=== PATIENT | female | born 1960 | race Caucasian/White ===

== ENCOUNTER → 2017-01-29 | Outpatient (CLI) | payer BC ==
--- NOTE | 2017-02-01 08:38 | MM ---
Reason for exam: screening (asymptomatic). Last mammogram was performed 2 years ago. History: Patient is postmenopausal. Benign stereotactic core biopsy of the right breast, December 28, 2003. Benign ultrasound-guided core biopsy of the right breast, December 28, 2003. 2 core biopsies of the right breast. Physical Findings: A clinical breast exam by your physician is recommended on an annual basis and results should be correlated with mammographic findings. MG Screening Mammo w CAD Bilateral CC and MLO view(s) were taken. Prior study comparison: January 15, 2015, bilateral MG screening mammo w CAD. The breast tissue is heterogeneously dense. This may lower the sensitivity of mammography. Finding: There are grouped/clustered indistinct calcifications in the 12 o'clock middle position of the left breast, 5cm from the nipple. Previous mammotome biopsy in the left breast x 2. New finding since January 15, 2015. ASSESSMENT: Incomplete: need additional imaging evaluation, BI-RAD 0 RECOMMENDATION: Special view mammogram of the left breast. [facility] will attempt to contact patient to return for supplemental views.
== END | disposition home or self-care (01) ==
LOC: RADMAMWWP 11:23
PROVIDERS: ATTEND Family Medicine
DX: Z12.31 Encounter for screening mammogram for malignant neoplasm of breast (principal)

== ENCOUNTER → 2017-02-04 | Outpatient (CLI) | payer BC ==
--- NOTE | 2017-02-05 06:55 | MM ---
Reason for exam: additional evaluation requested from abnormal screening. Last mammogram was performed less than 1 month ago. History: Patient is postmenopausal. Benign stereotactic core biopsy of the right breast, December 28, 2003. Benign ultrasound-guided core biopsy of the right breast, December 28, 2003. 2 core biopsies of the right breast. Physical Findings: Nurse did not find any significant physical abnormalities on exam. MG Work Up Mamm w CAD LT CC with magnification, LM with magnification, and LM view(s) were taken of the left breast. Prior study comparison: January 29, 2017, bilateral MG screening mammo w CAD. January 15, 2015, bilateral MG screening mammo w CAD. Fine pleomorphic calcifications grouped over 1.8cm in upper slightly inner left breast. These results were verbally communicated with the patient and result sheet given to the patient on 02/04/17. ASSESSMENT: Suspicious, BI-RAD 4 RECOMMENDATION: Stereotactic core biopsy of the left breast. Patient not sure whou she would like to see at this point. Dr. Mckay's office called and notified. Office aware patient did not want to see Dr. Mckay in office either at this time. Patient states she will call office with decision. PRELIMINARY REPORT CALLED AND FAXED TO DR. MCKAY ON 02/05/07.
== END | disposition home or self-care (01) ==
LOC: RADMAMWWP 13:39
PROVIDERS: ATTEND Family Medicine
DX: R92.8 Other abnormal and inconclusive findings on diagnostic imaging of breast (principal)

== ENCOUNTER → 2017-02-10 | Day surgery (SDC) | payer BC ==
[2017-02-10 10:37] VITALS: BP 135/67; PULSE 82; RESP 16; TEMP 98; BMI 25.5
--- NOTE | 2017-02-10 15:17 | MM ---
EXAMINATION TYPE: MG discontinued stereo core LT DATE OF EXAM: 02/10/2017 COMPARISON: 02/04/2017 mammogram CLINICAL HISTORY: Abnormal mammogram TECHNIQUE: Stereotactic guided core biopsy of left breast. FINDINGS: The procedure of stereotactic guided core biopsy was explained to the patient. Benefits, a lternatives, and risks were discussed. An informed consent was then obtained. In attempting to position the patient, it proved impossible or suitable for the patient to remain on the table given her prior spinal surgeries despite her high level of cooperation. The procedure could therefore not be performed and was terminated prior to skin incision. The patient will be reschedule d for wire localization following consultation with Dr. Del Valle. IMPRESSION: 1. Stereotactic core biopsy terminated prior to skin incision
== END ==
LOC: RADMAMWWP 09:55
PROVIDERS: ATTEND Family Medicine
DX: R92.8 Other abnormal and inconclusive findings on diagnostic imaging of breast (principal); Z53.9 Procedure and treatment not carried out, unspecified reason

== ENCOUNTER → 2018-01-31 | Outpatient (CLI) | payer BC ==
--- NOTE | 2018-01-31 10:53 | MM ---
Reason for exam: additional evaluation requested from prior study. Last mammogram was performed 4 months ago. History: Patient is postmenopausal. Benign stereotactic core biopsy of the left breast, March 2017. MG discontinued stereo core LT of the left breast, February 10, 2017. Benign stereotactic core biopsy of the right breast, December 28, 2003. Benign ultrasound-guided core biopsy of the right breast, December 28, 2003. 2 core biopsies of the right breast. Physical Findings: Nurse did not find any significant physical abnormalities on exam. MG 3D Diag Mammo W/Cad KIM Bilateral CC and MLO view(s) were taken. Prior study comparison: September 23, 2017, left breast MG diagnostic mammo LT w CAD. February 04, 2017, left breast MG work up mamm w CAD LT. The breast tissue is heterogeneously dense. This may lower the sensitivity of mammography. Stable benign calcifications. Previous mammotome biopsy in the right breast. There is no discrete abnormality. No significant new findings when compared with previous films. These results were verbally communicated with the patient and result sheet given to the patient on 01/31/18. ASSESSMENT: Benign, BI-RAD 2 RECOMMENDATION: Routine screening mammogram of both breasts in 1 year.
== END | disposition home or self-care (01) ==
LOC: RADMAMWWP 10:02
PROVIDERS: ATTEND Surgery
DX: R92.8 Other abnormal and inconclusive findings on diagnostic imaging of breast (principal)
CPT/HCPCS: 77062; 77066

== ENCOUNTER → 2021-02-26 | Outpatient (CLI) | payer BC ==
--- NOTE | 2021-02-27 13:44 | MM ---
Reason for exam: screening (asymptomatic). Last mammogram was performed 3 years and 1 month ago. History: Patient is postmenopausal. Benign stereotactic core biopsy of the left breast, March 2017. MG discontinued stereo core LT of the left breast, February 10, 2017. Benign stereotactic core biopsy of the right breast, December 28, 2003. Benign ultrasound-guided core biopsy of the right breast, December 28, 2003. 2 core biopsies of the right breast. Physical Findings: A clinical breast exam by your physician is recommended on an annual basis and results should be correlated with mammographic findings. MG 3D Screening Mammo W/Cad Bilateral CC and MLO view(s) were taken. Prior study comparison: January 31, 2018, bilateral MG 3d diag mammo w/cad KIM. September 23, 2017, left breast MG diagnostic mammo LT w CAD. The breast tissue is heterogeneously dense. This may lower the sensitivity of mammography. Stable benign calcifications. Previous mammotome biopsy in the left breast. No significant changes when compared with prior studies. ASSESSMENT: Benign, BI-RAD 2 RECOMMENDATION: Routine screening mammogram of both breasts in 1 year.
== END | disposition home or self-care (01) ==
LOC: RADMAMWWP 13:38
PROVIDERS: ATTEND Family Medicine
DX: Z12.31 Encounter for screening mammogram for malignant neoplasm of breast (principal); Z78.0 Asymptomatic menopausal state
CPT/HCPCS: 77063; 77067

== ENCOUNTER 2022-01-22 09:59 | Emergency (ER) | payer BC ==
[2022-01-22 10:07] VITALS: TEMP 98
--- NOTE | 2022-01-22 10:25 | ED ---
General Adult HPI - General Chief complaint: Upper Respiratory Infection Stated complaint: Pneumonia Time Seen by Provider: 01/22/22 10:09 Source: patient, RN notes reviewed, old records reviewed Mode of arrival: ambulatory Limitations: no limitations - History of Present Illness Initial comments: Patient is a 61-year-old female presents the emergency room at the direction of urgent care for further evaluation and treatment of possible bilate ral pneumonia, COPD exacerbation hypoxemia. Patient reports that approximately 1 week ago she began having fevers and generalized body aches which she attributed to a lupus flare however her body aches subsided and she later developed an increase in shortness of breath and episodes of hypoxia per her pulse ox monitor at home with readings between 84 and 92%. She reports that one day prior to symptoms she had returned from visiting family in [place] where she had drove down with her . She reports that no one that she visited in [place] was ill. She took a Covid test 5 days ago which was negative. She denies any chest pain, abdominal pain, nausea, vomiting recurrence of fevers or chills. In addition to her COPD and lupus she has a past medical history significant for headaches, chronic back pain, osteoarthritis and hyperlipidemia. - Related Data Home Medications Medication Instructions Recorded Confirmed Atorvastatin [Lipitor] 40 mg PO DAILY 04/10/14 01/22/22 Metoclopramide [Reglan] 10 mg PO QID 04/10/14 01/22/22 Pain Pump 1 dose INTRATHECA CONTINUOUS 04/10/14 01/22/22 Pantoprazole Sodium [Protonix] 40 mg PO DAILY 04/10/14 01/22/22 Budesonide-Formot 160-4.5 Mcg 2 puff INHALATION RT-BID 01/22/15 01/22/22 [Symbicort 160-4.5 Mcg Inhaler] Albuterol Sulfate [Proair Hfa] 1 - 2 puff INHALATION RT-Q4H PRN 01/22/22 01/22/22 Butalb/Acetaminophen/Caffeine 1 cap PO Q4HR PRN 01/22/22 01/22/22 [Fioricet 50-300-40 mg Capsule] Ipratropium-Albuterol Nebulize 3 ml INHALATION RT-Q4H PRN 01/22/22 01/22/22 [Duoneb 0.5 mg-3 mg/3 ml Soln] busPIRone HCL 15 mg PO BID 01/22/22 01/22/22 methocarbamoL [Robaxin-750] 750 mg PO QID 01/22/22 01/22/22 oxyCODONE HCL [oxyCODONE HCL (IR)] 15 mg PO Q4H 01/22/22 01/22/22 Previous Rx's Medication Instructions Recorded Levofloxacin [Levaquin] 500 mg PO DAILY 7 Days #7 tab 01/22/22 Allergies Allergy/AdvReac Type Severity Reaction Status Date / Time No Known Allergies Allergy Verified 01/22/22 11:29 Review of Systems ROS Statement: Those systems with pertinent positive or pertinent negative responses have been documented in the HPI. ROS Other: All systems not noted in ROS Statement are negative. Past Medical History Past Medical History: Asthma, Fibromyalgia, Hyperlipidemia, Osteoarthritis (OA) Additional Past Medical History / Comment(s): CLUSTER HEADACHES, LUPUS, HX UL CERS, MEDTRONIC PAIN PUMP LEFT BUTTOCKS- chronic back pain, "complete cervical/lumbar fusion" History of Any Multi-Drug Resistant Organisms: None Reported Past Surgical History: Appendectomy, Back Surgery, Breast Surgery Additional Past Surgical History / Comment(s): LUMBAR LAMINECTOMY X3, FUSION C-4 AND C-5, MEDTRONIC PAIN PUMP. Benign stereotactic core bx. right breast 2003, benign u/s core bx. right breast 2003. Past Anesthesia/Blood Transfusion Reactions: No Reported Reaction Past Psychological History: No Psychological Hx Reported Smoking Status: Former smoker Past Alcohol Use History: None Reported Past Drug Use History: None Reported - Past Family History Mother Family Medical History: Deep Vein Thrombosis (DVT) Father Family Medical History: Cancer Additional Family Medical History / Comment(s): LUNG General Exam Limitations: no limitations General appearance: alert, in no apparent distress Head exam: Present: atraumatic, normocephalic, normal inspection Eye exam: Present: normal appearance, PERRL, EOMI. Absent: scleral icterus, conjunctival injection, periorbital swelling ENT exam: Present: normal exam, mucous membranes moist Neck exam: Present: normal inspection. Absent: tenderness, meningismus, lymphadenopathy Respiratory exam: Present: decreased breath sounds (bibasilar). Absent: respiratory distress, wheezes, rales, rhonchi, stridor Cardiovascular Exam: Present: regular rate, normal rhythm, normal heart sounds. Absent: systolic murmur, diastolic murmur, rubs, gallop, clicks GI/Abdominal exam: Present: soft, normal bowel sounds. Absent: distended, tenderness, guarding, rebound, rigid Extremities exam: Present: normal inspection, full ROM, normal capillary refill. Absent: tenderness, pedal edema, joint swelling, calf tenderness Back exam: Present: normal inspection Neurological exam: Present: alert, oriented X3, CN II-XII intact Psychiatric exam: Present: normal affect, normal mood Skin exam: Present: warm, dry, intact, normal color. Absent: rash Course Vital Signs 01/22/22 01/22/22 10:03 10:40 Temperature 98.0 F Pulse Rate 94 82 Respiratory 20 20 Rate Blood Pressure 121/67 126/66 O2 Sat by Pulse 93 L 94 L Oximetry Medical Decision Making - Medical Decision Making 61-year-old female presents in the emergency room obstruction of urge nt care for possible bilateral pneumonia and COPD exacerbation without any wheeze or hypoxia when arriving at the emergency room. We will further evaluate with repeat chest x-ray, CBC, BMP, d-dimer, along with Covid and influenza swabs. Currently oxygen levels are doing well on room air and vital signs remained stable. No need for any medications at this time. Chest x-ray shows COPD with new right lower lobe area of infiltrate and suspicious right midlung 9 mm nodule. Laboratory studies reveal slightly elevated WBCs at 12.5 and elevated platelets at 523. Chemistry panel diffuse minor abnormalities no overt electrolyte derangement requiring IV fluids or medications. No evidence of dehydration. D-dimer elevated at 0.89. Due to suspicious lung nodule and shortness of breath will check CTA to rule out PE. Low probability for PE plan for discharge home on oral antibiotics as Covid and influenza swabs are negative. CTA negative for PE small scattered bilateral nodules are seen discussed with patient and encourage follow-up with her primary care provider. Will proceed with treatment for pneumonia with oral Levaquin which she has tolerated well in the past. No need for steroids. Hypoxia stable on room air without any desaturation no need for admission. Case discussed with Dr. Warner. - Lab Data Result diagrams: 01/22/22 10:47 01/22/22 10:47 Lab Results 01/22/22 01/22/22 01/22/22 Range/Units 10:47 10:47 10:47 WBC 12.5 H (3.8-10.6) k/uL RBC 4.08 (3.80-5.40) m/uL Hgb 12.1 (11.4-16.0) gm/dL Hct 37.6 (34.0-46.0) % MCV 92.0 (80.0-100.0) fL MCH 29.5 (25.0-35.0) pg MCHC 32.1 (31.0-37.0) g/dL RDW 12.5 (11.5-15.5) % Plt Count 523 H (150-450) k/uL MPV 7.0 Neutrophils % 87 % Lymphocytes % 8 % Monocytes % 4 % Eosinophils % 1 % Basophils % 0 % Neutrophils # 10.8 H (1.3-7.7) k/uL Lymphocytes # 1.0 (1.0-4.8) k/uL Monocytes # 0.5 (0-1.0) k/uL Eosinophils # 0.1 (0-0.7) k/uL Basophils # 0.1 (0-0.2) k/uL D-Dimer 0.89 H (<0.60) mg/L FEU Sodium 138 (137-145) mmol/L Potassium 3.8 (3.5-5.1) mmol/L Chloride 97 L (98-107) mmol/L Carbon Dioxide 28 (22-30) mmol/L Anion Gap 13 mmol/L BUN 10 (7-17) mg/dL Creatinine 0.48 L (0.52-1.04) mg/dL Est GFR (CKD-EPI)AfAm >90 (>60 ml/min/1.73 sqM) Est GFR (CKD-EPI)NonAf >90 (>60 ml/min/1.73 sqM) Glucose 139 H (74-99) mg/dL Calcium 9.5 (8.4-10.2) mg/dL Coronavirus (PCR) (Not Detectd) Influenza Type A RNA (Not Detectd) Influenza Type B (PCR) (Not Detectd) 01/22/22 01/22/22 Range/Units 10:47 10:47 WBC (3.8-10.6) k/uL RBC (3.80-5.40) m/uL Hgb (11.4-16.0) gm/dL Hct (34.0-46.0) % MCV (80.0-100.0) fL MCH (25.0-35.0) pg MCHC (31.0-37.0) g/dL RDW (11.5-15.5) % Plt Count (150-450) k/uL MPV Neutrophils % % Lymphocytes % % Monocytes % % Eosinophils % % Basophils % % Neutrophils # (1.3-7.7) k/uL Lymphocytes # (1.0-4.8) k/uL Monocytes # (0-1.0) k/uL Eosinophils # (0-0.7) k/uL Basophils # (0-0.2) k/uL D-Dimer (<0.60) mg/L FEU Sodium (137-145) mmol/L Potassium (3.5-5.1) mmol/L Chloride (98-107) mmol/L Carbon Dioxide (22-30) mmol/L Anion Gap mmol/L BUN (7-17) mg/dL Creatinine (0.52-1.04) mg/dL Est GFR (CKD-EPI)AfAm (>60 ml/min/1.73 sqM) Est GFR (CKD-EPI)NonAf (>60 ml/min/1.73 sqM) Glucose (74-99) mg/dL Calcium (8.4-10.2) mg/dL Coronavirus (PCR) Not Detected (Not Detectd) Influenza Type A RNA Not Detected (Not Detectd) Influenza Type B (PCR) Not Detected (Not Detectd) Disposition Clinical Impression: Pneumonia Disposition: HOME SELF-CARE Condition: Stable Instructions (If sedation given, give patient instructions): Pulmonary Nodules (ED), Pneumonia (ED) Additional Instructions: Please complete course of antibiotic therapy. Please continue to utilize her inhalers and nebulizer as prescribed. Please avoid respiratory irritants when possible. Please follow-up with your primary care provider in regards to your pneumonia along with pulmonary nodules identified on imaging completed today. Please return to the Emergency Department if symptoms worsen or any other concerns. Prescriptions: Levofloxacin [Levaquin] 500 mg PO DAILY 7 Days #7 tab Is patient prescribed a controlled substance at d/c from ED?: No Referrals: Maycol Rowan DO [Primary Care Provider] - 1-2 days
--- NOTE | 2022-01-22 10:38 | XR ---
EXAMINATION TYPE: XR chest 2V DATE OF EXAM: 01/22/2022 COMPARISON: 05/31/2015 TECHNIQUE: PA and lateral views submitted. HISTORY: Shortness of breath FINDINGS: Diffuse emphysematous changes are seen with subsegmental changes at the right lung base new from prio r exam correlated with preliminary infiltrate. There is suggestion of a nodular 9 mm density in the l ateral margin of the right midlung. No overt failure or pneumothorax. Diffuse osteopenia. Heart size normal. Postsurgical changes overlying cervical spine. IMPRESSION: 1. COPD with new right lower lobe area of infiltrate 2. There is finding suspicious for a right midlung nodule. Dedicated short-term follow-up CT of the c hest is recommended to exclude neoplasm.
[2022-01-22 11:01] LABS: Basophils # (A) 0.1 k/uL (0-0.2); Basophils % (A) 0 %; Eosinophils # (A) 0.1 k/uL (0-0.7); Eosinophils % (A) 1 %; HCT 37.6 % (34.0-46.0); HGB 12.1 gm/dL (11.4-16.0); Lymphocytes % (A) 8 %; MCH 29.5 pg (25.0-35.0); MCHC 32.1 g/dL (31.0-37.0); Monocytes # (A) 0.5 k/uL (0-1.0); Monocytes % (A) 4 %; Neutrophils # (A) 10.8 k/uL (1.3-7.7); Neutrophils % (A) 87 %; Platelet Count 523 k/uL (150-450); RBC 4.08 m/uL (3.80-5.40); RDW 12.5 % (11.5-15.5); WBC 12.5 k/uL (3.8-10.6)
[2022-01-22 11:12] LABS: African American GFR (CKD) >90 (>60 ml/min/1.73 sqM); Anion Gap 13 mmol/L; Blood Urea Nitrogen 10 mg/dL (7-17); Calcium 9.5 mg/dL (8.4-10.2); Carbon Dioxide 28 mmol/L (22-30); Chloride 97 mmol/L (98-107); Glucose 139 mg/dL (74-99); Non-African American GFR(CKD) >90 (>60 ml/min/1.73 sqM); Potassium 3.8 mmol/L (3.5-5.1); Sodium 138 mmol/L (137-145)
--- NOTE | 2022-01-22 13:58 | CT ---
EXAMINATION TYPE: CT chest angio for PE DATE OF EXAM: 01/22/2022 COMPARISON: Chest x-ray earlier today HISTORY: SOB, elevated d dimer. Abnormal chest x-ray. CT DLP: 280.2 mGycm. Automated Exposure Control for Dose Reduction was Utilized. CONTRAST: CTA scan of the thorax is performed with IV Contrast, patient injected with 100 mL of Isovue 370, pul monary embolism protocol. MIP Images are created on CT scanner and reviewed. FINDINGS: LUNGS: At least Moderate underlying emphysematous change is confirmed. There are [id number] sca ttered areas of linear scarring bilaterally. Some peripheral more thickened areas could reflect atele ctasis or consolidation. Scattered small bilateral nodules are seen. For reference is a 7 x 6 mm righ t middle lobe nodule axial image 102. Adjacent 8 x 5 mm pulmonary nodule noted axial image 104. Irreg ular thickening in the lower lungs favors more prominent parenchymal scarring. No pleural effusion or pneumothorax seen bilaterally. MEDIASTINUM: There is satisfactory enhancement of the pulmonary artery and its branches, there is no CT evidence for pulmonary embolism. There are prominent and enlarged right hilar lymph nodes. No cardiomegaly or pericardial effusion is seen. OTHER: Enhancing vessels in the posterior spinal canal lumbar spine likely epidural artery. Slight sc oliotic curvature. IMPRESSION: Moderate to advanced emphysematous change with mild/moderate parenchymal fibrosis. Areas of mild acute infiltrate not entirely excluded though thought unlikely. Scattered small bilateral pul monary nodules is nonspecific. Consider PET/CT evaluation based on clinical correlation.
[2022-01-22 15:03] VITALS: BP 131/68; PULSE 78; RESP 18
== END 2022-01-22 14:54 | disposition home or self-care (01) ==
LOC: EC 09:59
DX: J18.9 Pneumonia, unspecified organism (principal); J45.909 Unspecified asthma, uncomplicated; E78.5 Hyperlipidemia, unspecified; M19.90 Unspecified osteoarthritis, unspecified site; Z87.891 Personal history of nicotine dependence; Z79.899 Other long term (current) drug therapy; Z79.51 Long term (current) use of inhaled steroids; Z20.822 Contact with and (suspected) exposure to COVID-19
CPT/HCPCS: 36415; 85379; 80048; 85025; 87502; 87635; 71046; 71275; 99285; Q9967

== ENCOUNTER → 2022-10-02 | Outpatient (CLI) | payer BC ==
--- NOTE | 2022-10-02 15:58 | XR ---
EXAMINATION TYPE: XR chest 2V DATE OF EXAM: 10/02/2022 COMPARISON: Chest x-ray January 22, 2022 HISTORY: Shortness of breath TECHNIQUE: Frontal and lateral views of the chest are obtained. FINDINGS: Background Chronic emphysematous and pulmonary fibrotic change bilaterally is redemonstrat ed. There is no suspicious new focal air space opacity, pleural effusion, or pneumothorax seen. The cardiac silhouette size is stable and within normal limits. Surgical change of the cervical spine is partially imaged. IMPRESSION: Chronic changes without acute pulmonary process. No significant change from recent x-ray .
== END | disposition home or self-care (01) ==
LOC: RADXRYALE 15:36
PROVIDERS: ATTEND Family Medicine
DX: J43.9 Emphysema, unspecified (principal); J84.10 Pulmonary fibrosis, unspecified
CPT/HCPCS: 71046

== ENCOUNTER → 2023-04-26 | Outpatient (CLI) | payer BC ==
--- NOTE | 2023-04-26 11:16 | XR ---
EXAMINATION TYPE: XR chest 2V DATE OF EXAM: 04/26/2023 COMPARISON: 10/02/2022 HISTORY: Shortness of breath TECHNIQUE: Frontal and lateral views of the chest are obtained. FINDINGS: Scattered senescent parenchymal changes noted. Hyperinflation compatible with COPD. No evidence for infiltrate. No evidence for atelectasis. Heart size is stable. Mediastinal structures are stable and grossly unremarkable. No evidence for hilar prominence. Degenerative changes dorsal spine. IMPRESSION: 1. No evidence for acute pulmonary disease.
== END | disposition home or self-care (01) ==
LOC: RADXRYALE 10:40
PROVIDERS: ATTEND Family Medicine
DX: R07.1 Chest pain on breathing (principal); R06.02 Shortness of breath; R09.1 Pleurisy; W19.XXXA Unspecified fall, initial encounter
CPT/HCPCS: 71046

== ENCOUNTER → 2023-05-10 | Outpatient (CLI) | payer BC | END | disposition home or self-care (01) | LOC: LABWHC1 08:18 | PROVIDERS: ATTEND Psychiatry & Neurology Neurology | DX: Z01.818 Encounter for other preprocedural examination (principal); I23.1 Atrial septal defect as current complication following acute myocardial infarction; R94.31 Abnormal electrocardiogram [ECG] [EKG] | CPT/HCPCS: 36415; 93005 ==

== ENCOUNTER 2023-06-08 11:00 | Inpatient (IN) | payer BC ==
[2023-06-08] MEDS ORDERED: methylPREDNISolone SOD SUCCI 125 MG/2 ML VIAL IV STA (11:36)
[2023-06-08] MEDS ORDERED: IPRATROPIUM-ALBUTEROL 3 ML NEB INHALATION STA (11:36)
--- NOTE | 2023-06-08 11:38 | ED ---
General Adult HPI - General Chief complaint: Shortness of Breath Stated complaint: low oxygen levels Time Seen by Provider: 06/08/23 11:27 Source: patient, RN notes reviewed Mode of arrival: ambulatory Limitations: no limitations - History of Present Illness Initial comments: Patient is a pleasant 62-year-old female presenting to the emergency department with difficulty breathing. Symptoms have been present for the past 2 weeks.Please use medication as discussed. Please follow-up with family doctor in the next 2 days of symptoms have not improved. Please return to emergency room if the symptoms increase or worsen or for any other concerns. Was diagnosed with COVID-19 infection in May 26. Patient did take paxlovid with mild improvement of symptoms. Patient does have continued productive cough. No fever. A walden has dyspnea and wheezing. Patient does have history of COPD. No Pain or leg swelling. - Related Data Home Medications Medication Instructions Recorded Confirmed Atorvastatin [Lipitor] 40 mg PO DAILY 04/10/14 01/22/22 Metoclopramide [Reglan] 10 mg PO QID 04/10/14 01/22/22 Pain Pump 1 dose INTRATHECA CONTINUOUS 04/10/14 01/22/22 Pantoprazole Sodium [Protonix] 40 mg PO DAILY 04/10/14 01/22/22 Budesonide-Formot 160-4.5 Mcg 2 puff INHALATION RT-BID 01/22/15 01/22/22 [Symbicort 160-4.5 Mcg Inhaler] Albuterol Sulfate [Proair Hfa] 1 - 2 puff INHALATION RT-Q4H PRN 01/22/22 01/22/22 Butalb/Acetaminophen/Caffeine 1 cap PO Q4HR PRN 01/22/22 01/22/22 [Fioricet 50-300-40 mg Capsule] Ipratropium-Albuterol Nebulize 3 ml INHALATION RT-Q4H PRN 01/22/22 01/22/22 [Duoneb 0.5 mg-3 mg/3 ml Soln] busPIRone HCL 15 mg PO BID 01/22/22 01/22/22 methocarbamoL [Robaxin-750] 750 mg PO QID 01/22/22 01/22/22 oxyCODONE HCL [oxyCODONE HCL (IR)] 15 mg PO Q4H 01/22/22 01/22/22 Previous Rx's Medication Instructions Recorded Levofloxacin [Levaquin] 500 mg PO DAILY 7 Days #7 tab 01/22/22 Allergies Allergy/AdvReac Type Severity Reaction Status Date / Time No Known Allergies Allergy Verified 06/08/23 11:10 Review of Systems ROS Statement: Those systems with pertinent positive or pertinent negative responses have been documented in the HPI. ROS Other: All systems not noted in ROS Statement are negative. Constitutional: Denies: fever Eyes: Denies: eye pain ENT: Denies: ear pain Respiratory: Reports: as per HPI, cough, dyspnea Cardiovascular: Denies: chest pain Endocrine: Reports: fatigue Gastrointestinal: Denies: abdominal pain Genitourinary: Denies: dysuria Past Medical History Past Medical History: Asthma, Fibromyalgia, Hyperlipidemia, Osteoarthritis (OA) Additional Past Medical History / Comment(s): CLUSTER HEADACHES, LUPUS, HX ULCERS, MEDTRONIC PAIN PUMP LEFT BUTTOCKS- chronic back pain, "complete cervical/lumbar fusion" History of Any Multi-Drug Resistant Organisms: None Reported Past Surgical History: Appendectomy, Back Surgery, Breast Surgery Additional Past Surgical History / Comment(s): LUMBAR LAMINECTOMY X3, FUSION C-4 AND C-5, MEDTRONIC PAIN PUMP. Benign stereotactic core bx. right breast 2003, benign u/s core bx. right breast 2003. Past Anesthesia/Blood Transfusion Reactions: No Reported Reaction Past Psychological History: No Psychological Hx Reported Smoking Status: Former smoker Past Alcohol Use History: None Reported Past Drug Use History: None Reported - Past Family History Mother Family Medical History: Deep Vein Thrombosis (DVT) Father Family Medical History: Cancer Additional Family Medical History / Comment(s): LUNG General Exam Limitations: no limitations General appearance: alert, in no apparent distress Head exam: Present: normocephalic Eye exam: Present: normal appearance Neck exam: Present: normal inspection Respiratory exam: Present: decreased breath sounds Cardiovascular Exam: Present: tachycardia GI/Abdominal exam: Present: soft. Absent: tenderness Extremities exam: Present: normal inspection. Absent: pedal edema, calf tenderness Neurological exam: Present: alert Psychiatric exam: Present: normal affect, normal mood Skin exam: Present: normal color Course Vital Signs 06/08/23 06/08/23 06/08/23 11:07 11:10 11:29 Temperature 99 F Pulse Rate 128 H 116 H Respiratory 18 26 H 38 H Rate Blood Pressure 140/78 149/99 O2 Sat by Pulse 88 L 87 L Oximetry 06/08/23 06/08/23 12:28 12:39 Temperature Pulse Rate 112 H 112 H Respiratory Rate Blood Pressure O2 Sat by Pulse Oximetry EKG Findings - EKG Results: EKG: interpreted by ERMD, sinus rhythm, normal axis, normal QRS, normal ST/T EKG shows: tachycardia Medical Decision Making - Medical Decision Making Was pt. sent in by a medical professional or institution (, PA, CUSTOMER CARE CONSULTANT, urgent care, hospital, or fdc...) When possible be specific @ -No Did you speak to anyone other than the patient for history (EMS, parent, family, police, friend...)? What history was obtained from this source @ -Family is present and helps confirm onset COVID-19 infection Did you review nursing and triage notes (agree or disagree)? Why? @ -I reviewed and agree with nursing and triage notes Were old charts reviewed (outside hosp., previous admission, EMS record, old EKG, old radiological studies, urgent care reports/EKG's, fdc records)? Report findings @ -Previous chest x-ray reviewed Differential Diagnosis (chest pain, altered mental status, abdominal pain women, abdominal pain men, vaginal bleeding, weakness, fever, dyspnea, syncope, headache, dizziness, GI bleed, back pain, seizure, CVA, palpatations, mental health, musculoskeletal)? @ -Differential Dyspnea: Coronary syndrome, arrhythmia, tamponade, asthma, COPD, pulmonary embolism, pneumonia, pneumothorax, pulmonary effusion, anaphylaxis, diabetic ketoacidosis, flailed chest, pulmonary contusion, diaphragmatic rupture, anemia, neuromuscular, this is not meant to be an all-inclusive list. EKG interpreted by me (3pts min.). @ -As above X-rays interpreted by me (1pt min.). @ -Chest x-ray shows no acute process CT interpreted by me (1pt min.). @ -None done U/S interpreted by me (1pt. min.). @ -None done What testing was considered but not performed or refused? (CT, X-rays, U/S, labs)? Why? @ -None What meds were considered but not given or refused? Why? @ -None Did you discuss the management of the patient with other professionals (professionals i.e. , PA, CUSTOMER CARE CONSULTANT, lab, RT, psych nurse, social media content manager, ui programmer, teacher, marketing officer, case management assistant)? Give summary @ -Case was discussed with Dr. Burgos, who will admit covering Dr. Eileen Guzman Was smoking cessation discussed for >3mins.? @ -No Was critical care preformed (if so, how long)? @ -No Were there social determinants of health that impacted care today? How? (Homelessness, low income, unemployed, alcoholism, drug addiction, transportation, low edu. Level, literacy, decrease access to med. care, long term, rehab)? @ -No Was there de-escalation of care discussed even if they declined (Discuss DNR or withdrawal of care, Hospice)? DNR status @ -No What co-morbidities impacted this encounter? (DM, HTN, Smoking, COPD, CAD, Cancer, CVA, ARF, Chemo, Hep., AIDS, mental health diagnosis, sleep apnea, morbid obesity)? @ -None Was patient admitted / discharged? Hospital course, mention meds given and route, prescriptions, significant lab abnormalities, going to OR and other pert inent info. @ -Patient reevaluated with slight improvement. Patient and family updated. Patient will be admitted for COPD. COVID-19 likely from recent infection on testing. Admission orders written. Undiagnosed new problem with uncertain prognosis? @ -No Drug Therapy requiring intensive monitoring for toxicity (Heparin, Nitro, Insulin, Cardizem)? @ -No Were any procedures done? @ -No Diagnosis/symptom? @ -COPD Acute, or Chronic, or Acute on Chronic? @ -Acute Uncomplicated (without systemic symptoms) or Complicated (systemic symptoms)? @ -default Side effects of treatment? @ -No Exacerbation, Progression, or Severe Exacerbation? @ -Exacerbation Poses a threat to life or bodily function? How? (Chest pain, USA, NH, pneumonia, PE, COPD, DKA, ARF, appy, cholecystitis, CVA, Diverticulitis, Homicidal, Suicidal, threat to staff... and all critical care pts) @ -No - Lab Data Result diagrams: 06/08/23 11:41 06/08/23 11:41 Lab Results 06/08/23 06/08/23 06/08/23 Range/Units 11:41 11:41 11:41 WBC 20.6 H (3.8-10.6) k/uL RBC 4.72 (3.80-5.40) m/uL Hgb 14.4 (11.4-16.0) gm/dL Hct 43.1 (34.0-46.0) % MCV 91.3 (80.0-100.0) fL MCH 30.5 (25.0-35.0) pg MCHC 33.4 (31.0-37.0) g/dL RDW 12.3 (11.5-15.5) % Plt Count 594 H (150-450) k/uL MPV 7.6 Neutrophils % 90 % Lymphocytes % 6 % Monocytes % 3 % Eosinophils % 1 % Basophils % 0 % Neutrophils # 18.6 H (1.3-7.7) k/uL Lymphocytes # 1.1 (1.0-4.8) k/uL Monocytes # 0.6 (0-1.0) k/uL Eosinophils # 0.2 (0-0.7) k/uL Basophils # 0.0 (0-0.2) k/uL Sodium 137 (137-145) mmol/L Potassium 4.4 (3.5-5.1) mmol/L Chloride 96 L (98-107) mmol/L Carbon Dioxide 26 (22-30) mmol/L Anion Gap 15 mmol/L BUN 17 (7-17) mg/dL Creatinine 0.60 (0.52-1.04) mg/dL Est GFR (CKD-EPI)AfAm >90 (>60 ml/min/1.73 sqM) Est GFR (CKD-EPI)NonAf >90 (>60 ml/min/1.73 sqM) Glucose 164 H (74-99) mg/dL Plasma Lactic Acid Paco 1.8 (0.7-2.0) mmol/L Calcium 9.6 (8.4-10.2) mg/dL Magnesium 1.7 (1.6-2.3) mg/dL Total Bilirubin 0.6 (0.2-1.3) mg/dL AST 22 (14-36) U/L ALT 21 (4-34) U/L Alkaline Phosphatase 96 (38-126) U/L Total Protein 7.0 (6.3-8.2) g/dL Albumin 4.1 (3.5-5.0) g/dL Influenza Type A (PCR) (Not Detectd) Influenza Type B (PCR) (Not Detectd) RSV (PCR) (Not Detectd) SARS-CoV-2 (PCR) (Not Detectd) 06/08/23 Range/Units 11:41 WBC (3.8-10.6) k/uL RBC (3.80-5.40) m/uL Hgb (11.4-16.0) gm/dL Hct (34.0-46.0) % MCV (80.0-100.0) fL MCH (25.0-35.0) pg MCHC (31.0-37.0) g/dL RDW (11.5-15.5) % Plt Count (150-450) k/uL MPV Neutrophils % % Lymphocytes % % Monocytes % % Eosinophils % % Basophils % % Neutrophils # (1.3-7.7) k/uL Lymphocytes # (1.0-4.8) k/uL Monocytes # (0-1.0) k/uL Eosinophils # (0-0.7) k/uL Basophils # (0-0.2) k/uL Sodium (137-145) mmol/L Potassium (3.5-5.1) mmol/L Chloride (98-107) mmol/L Carbon Dioxide (22-30) mmol/L Anion Gap mmol/L BUN (7-17) mg/dL Creatinine (0.52-1.04) mg/dL Est GFR (CKD-EPI)AfAm (>60 ml/min/1.73 sqM) Est GFR (CKD-EPI)NonAf (>60 ml/min/1.73 sqM) Glucose (74-99) mg/dL Plasma Lactic Acid Paco (0.7-2.0) mmol/L Calcium (8.4-10.2) mg/dL Magnesium (1.6-2.3) mg/dL Total Bilirubin (0.2-1.3) mg/dL AST (14-36) U/L ALT (4-34) U/L Alkaline Phosphatase (38-126) U/L Total Protein (6.3-8.2) g/dL Albumin (3.5-5.0) g/dL Influenza Type A (PCR) Not Detected (Not Detectd) Influenza Type B (PCR) Not Detected (Not Detectd) RSV (PCR) Not Detected (Not Detectd) SARS-CoV-2 (PCR) Detected A (Not Detectd) Disposition Clinical Impression: Acute exacerbation of chronic obstructive pulmonary disease Disposition: ADMITTED IP TO THIS HOSP Is patient prescribed a controlled substance at d/c from ED?: No Referrals: Maycol Rowan DO [Primary Care Provider] - 1-2 days Time of Disposition: 13:21
[2023-06-08 12:07] LABS: ALT 21 U/L (4-34); AST 22 U/L (14-36); African American GFR (CKD) >90 (>60 ml/min/1.73 sqM); Albumin 4.1 g/dL (3.5-5.0); Alkaline Phosphatase 96 U/L (38-126); Anion Gap 15 mmol/L; Blood Urea Nitrogen 17 mg/dL (7-17); Calcium 9.6 mg/dL (8.4-10.2); Carbon Dioxide 26 mmol/L (22-30); Chloride 96 mmol/L (98-107); Glucose 164 mg/dL (74-99); Magnesium 1.7 mg/dL (1.6-2.3); Non-African American GFR(CKD) >90 (>60 ml/min/1.73 sqM); Potassium 4.4 mmol/L (3.5-5.1); Sodium 137 mmol/L (137-145); Total Bilirubin 0.6 mg/dL (0.2-1.3)
--- NOTE | 2023-06-08 12:07 | XR ---
EXAMINATION TYPE: XR chest 2V DATE OF EXAM: 06/08/2023 12:01 PM CLINICAL INDICATION:Female, 62 years old with history of difficulty breathing; [facility] COMPARISON: Chest radiographs from 03/26/2023. TECHNIQUE: XR chest 2V Frontal and lateral views of the chest. FINDINGS: Lungs/Pleura: Prominent interstitial lung markings are seen scattered throughout the lungs with farzad ening of the diaphragm and increased lucency of the lung apices. No evidence of focal consolidation, pneumothorax or pleural effusion. Pulmonary vascularity: Unremarkable. Heart/mediastinum: Cardiomediastinal silhouette is unremarkable. Musculoskeletal: No acute osseous pathology. There is fixation hardware in the lower cervical spine. IMPRESSION: 1. No acute cardiopulmonary disease process. 2. COPD changes.
[2023-06-08] MEDS ORDERED: ACETAMINOPHEN TAB 325 MG TAB PO STA (12:17)
[2023-06-08 12:28] LABS: Basophils % (A) 0 %; Eosinophils # (A) 0.2 k/uL (0-0.7); Eosinophils % (A) 1 %; HCT 43.1 % (34.0-46.0); HGB 14.4 gm/dL (11.4-16.0); Lymphocytes # (A) 1.1 k/uL (1.0-4.8); Lymphocytes % (A) 6 %; MCH 30.5 pg (25.0-35.0); MCHC 33.4 g/dL (31.0-37.0); MCV 91.3 fL (80.0-100.0); Mean Platelet Volume 7.6; Monocytes # (A) 0.6 k/uL (0-1.0); Monocytes % (A) 3 %; Neutrophils # (A) 18.6 k/uL (1.3-7.7); Neutrophils % (A) 90 %; Platelet Count 594 k/uL (150-450); RBC 4.72 m/uL (3.80-5.40); RDW 12.3 % (11.5-15.5); WBC 20.6 k/uL (3.8-10.6)
[2023-06-08] MEDS ORDERED: SODIUM CHLORIDE 0.9% 1,000 ML IV STA (13:22)
[2023-06-08] MEDS ORDERED: LEVOFLOXACIN 750MG-D5W PMX 750 MG in DEXTROSE/WATER 1 150ML.BAG IVPB STA (13:22)
[2023-06-08] MEDS ORDERED: ACETAMINOPHEN TAB 325 MG TAB PO PRN (13:23)
[2023-06-08] MEDS ORDERED: NALOXONE 0.4 MG/ML 1 ML VIAL IVP PRN (13:23)
[2023-06-08] MEDS ORDERED: IPRATROPIUM-ALBUTEROL 3 ML NEB INHALATION PRN (13:23)
--- NOTE | 2023-06-08 14:35 | P.HPIM ---
History of Present Illness H&P Date: 06/08/23 Patient is a 62-year-old female with history of COPD, nicotine dependence, lupus, chronic back pain, dyslipidemia presenting with shortness of breath. She has been having similar issues for almost 2 weeks. Was tested COVID-19 positive on 05/26. She was seen in the primary care office, was given steroid taper as well as doxycycline. Her symptoms have persistently worsened. She claims that she has significant shortness of breath with some sternal pain with cough. Occasionally her cough is productive, but mostly is nonproductive. He had chills but no fevers. Denies any travel history or sick contacts. She denies any palpitations, abdominal pain, nausea, vomiting, urinary or bowel complaints. In the ED, temperature was 99, pulse 128, respiratory rate 18, blood pressure 140/78, saturating at 88% on room air. Chest x-ray independently interpreted does not show any acute opacities. WBC 20.6, platelet 594, creatinine 0.6, COVID-19 positive. Patient admitted for COPD exacerbation. Pertinent positives and negatives as discussed in HPI, a complete review of systems was performed and all other systems are negative. Patient seen and examined at bedside. Vital signs reviewed General: nontoxic, no distress, appears at stated age Derm: warm, dry Head: atraumatic, normocephalic, symmetric Eyes: EOMI, no lid lag, anicteric sclera, pupils equal round reactive to light ENT: Nose and ears atraumatic Neck: No thyromegaly, supple Mouth: no lip lesion, mucus membranes moist Cardiovascular: S1S2 reg, no murmur, no edema Lungs: clear to auscultation bilateral, no rhonchi, no rales, no wheeze, no accessory muscle use, supplemental O2 Abdominal: soft, nontender to palpation, no guarding, no appreciable organomegaly Ext: no gross muscle atrophy, muscle strength muscle strength 5 out of 5 in all 4 extremities, no contractures Neuro: CN II-XII grossly intact Psych: Alert, oriented, appropriate affect Assessment/Plan: Active: Acute COPD exacerbation Acute hypoxic respiratory failure COVID-19 infection Leukocytosis, likely reactive and seteroid induced -wean O2 -DuoNeb's 4 times a day, every 2 hours as needed -On Solu-Medrol 60 mg IV every 6 hours -sputum cx, blood cx pending -Hold off antibiotics, if any other signs and symptoms of infection, we'll consider restarting IV antibiotics. -patient is s/p paxlovid anxiety - elavil 50 daily GERD - coninue protonix 40 HLD - lipitor 40 gastroparesis - continue reglan 10qid Lupus, not on any therapy Chronic back pain - continue home therapy, monitor for respiratory depression The patient is admitted with an anticipated greater than 2 midnight stay as inpatient status for evaluation of COPD exacerbation. Surrogate decision-maker: CODE STATUS:FC DVT prophylaxis: lovenox Anticipated discharge date: pending clinical course Anticipated discharge place: pending clinical course A total of 55 minutes was spent on the care of this complex patient more than 50% of the time was spent in counseling and care coordination. Past Medical History Past Medical History: Asthma, Fibromyalgia, Hyperlipidemia, Osteoarthritis (OA) Additional Past Medical History / Comment(s): CLUSTER HEADACHES, LUPUS, HX ULCERS, MEDTRONIC PAIN PUMP LEFT BUTTOCKS- chronic back pain, "complete cervi jcaob/lumbar fusion" History of Any Multi-Drug Resistant Organisms: None Reported Past Surgical History: Appendectomy, Back Surgery, Breast Surgery Additional Past Surgical History / Comment(s): LUMBAR LAMINECTOMY X3, FUSION C-4 AND C-5, MEDTRONIC PAIN PUMP. Benign stereotactic core bx. right breast 2003, benign u/s core bx. right breast 2003. Past Anesthesia/Blood Transfusion Reactions: No Reported Reaction Past Psychological History: No Psychological Hx Reported Smoking Status: Former smoker Past Alcohol Use History: None Reported Past Drug Use History: None Reported - Past Family History Mother Family Medical History: Deep Vein Thrombosis (DVT) Father Family Medical History: Cancer Additional Family Medical History / Comment(s): LUNG Medications and Allergies Home Medications Medication Instructions Recorded Confirmed Type Atorvastatin [Lipitor] 40 mg PO DAILY 04/10/14 06/08/23 History Metoclopramide [Reglan] 10 mg PO QID 04/10/14 06/08/23 History Pantoprazole Sodium [Protonix] 40 mg PO DAILY 04/10/14 06/08/23 History Albuterol Sulfate [Proair Hfa] 1 - 2 puff INHALATION RT-Q4H PRN 01/22/22 06/08/23 History Butalb/Acetaminophen/Caffeine 1 cap PO Q4HR PRN 01/22/22 06/08/23 History [Fioricet 50-300-40 mg Capsule] Ipratropium-Albuterol Nebulize 3 ml INHALATION RT-TID PRN 01/22/22 06/08/23 History [Duoneb 0.5 mg-3 mg/3 ml Soln] methocarbamoL [Robaxin-750] 750 mg PO QID 01/22/22 06/08/23 History Amitriptyline HCl [Elavil] 50 mg PO HS 06/08/23 06/08/23 History Budesonide/Formoterol Fumarate 2 puff INHALATION RT-BID 06/08/23 06/08/23 History [Breyna 160-4.5 Mcg Inhaler] Doxycycline Hyclate 100 mg PO BID 06/08/23 06/08/23 History Gabapentin 600 mg PO BID 06/08/23 06/08/23 History oxyCODONE HCL [Oxycodone HCl] 20 mg PO QID 06/08/23 06/08/23 History predniSONE [Deltasone] See Taper PO DIRECTED 06/08/23 06/08/23 History Allergies Allergy/AdvReac Type Severity Reaction Status Date / Time No Known Allergies Allergy Verified 06/08/23 14:15 Physical Exam Vitals: Vital Signs Temp Pulse Resp BP Pulse Ox 06/08/23 13:57 98 20 129/71 94 L 06/08/23 12:39 112 H 06/08/23 12:28 112 H 06/08/23 11:29 38 H 06/08/23 11:10 116 H 26 H 149/99 87 L 06/08/23 11:07 99 F 128 H 18 140/78 88 L Intake and Output 06/07/23 06/08/23 06/08/23 22:59 06:59 14:59 Other: Weight 62.596 kg Results CBC & Chem 7: 06/08/23 11:41 06/08/23 11:41 Labs: Abnormal Lab Results - Last 24 Hours (Table) 06/08/23 06/08/23 06/08/23 Range/Units 11:41 11:41 11:41 WBC 20.6 H (3.8-10.6) k/uL Plt Count 594 H (150-450) k/uL Neutrophils # 18.6 H (1.3-7.7) k/uL Chloride 96 L (98-107) mmol/L Glucose 164 H (74-99) mg/dL SARS-CoV-2 (PCR) Detected A (Not Detectd)
[2023-06-08] MEDS ORDERED: ALBUTEROL HFA INHALER INHALATION PRN (14:44)
[2023-06-08] MEDS: ALBUTEROL HFA INHALER INHALATION SCH ×2 (15:06→20:09)
[2023-06-08] MEDS ORDERED: IPRATROPIUM-ALBUTEROL 3 ML NEB INHALATION SCH (16:00)
[2023-06-08] MEDS: methylPREDNISolone SOD SUCCI 125 MG/2 ML VIAL IV SCH ×2 (17:56→23:43)
[2023-06-08] MEDS: methocarbamoL 750 MG TAB PO SCH ×2 (17:57→21:49)
[2023-06-08] MEDS: METOCLOPRAMIDE 10 MG TAB PO SCH ×2 (17:57→20:37)
[2023-06-08] MEDS: SYMBICORT 160-4.5 MCG INHALER INHALATION SCH (20:09)
[2023-06-08] MEDS: GABAPENTIN 300 MG CAP PO SCH (20:26)
[2023-06-08] MEDS: AMITRIPTYLINE HCL 50 MG TAB PO SCH (20:37)
[2023-06-09] MEDS: methylPREDNISolone SOD SUCCI 125 MG/2 ML VIAL IV SCH ×4 (05:19→23:31)
[2023-06-09] MEDS: METOCLOPRAMIDE 10 MG TAB PO SCH ×4 (05:33→21:15)
[2023-06-09] MEDS: ALBUTEROL HFA INHALER INHALATION SCH ×4 (05:58→19:47)
[2023-06-09] MEDS: SYMBICORT 160-4.5 MCG INHALER INHALATION SCH ×2 (05:59→19:47)
[2023-06-09] MEDS: ENOXAPARIN 40 MG/0.4 ML SYRINGE SQ SCH (09:31)
[2023-06-09] MEDS: ATORVASTATIN 40 MG TAB PO SCH (09:33)
[2023-06-09] MEDS: PANTOPRAZOLE 40 MG TABLET PO SCH (09:33)
[2023-06-09] MEDS: GABAPENTIN 300 MG CAP PO SCH ×2 (09:33→21:15)
[2023-06-09] MEDS: methocarbamoL 750 MG TAB PO SCH ×4 (11:08→21:18)
[2023-06-09 11:12] LABS: Basophils # (A) 0.02 X 10*3/uL (0.00-0.10); Basophils % (A) 0.1 %; Eosinophils # (A) 0 X 10*3/uL (0.04-0.35); Eosinophils % (A) 0 %; HCT 36.1 % (37.2-46.3); Lymphocytes # (A) 0.52 X 10*3/uL (0.90-5.00); Lymphocytes % (A) 2.8 %; MCHC 33.2 g/dL (32.0-37.0); MCV 90.3 FL (80.0-97.0); Mean Platelet Volume 8.5 FL (9.5-12.2); Monocytes # (A) 0.43 X 10*3/uL (0.20-1.00); Monocytes % (A) 2.3 %; NRBC Per 100 WBC 0 X 10*3/uL (0.00-0.01); Neutrophils # (A) 17.27 X 10*3/uL (1.80-7.70); Neutrophils % (A) 94.5 %; Platelet Count 506 X 10*3/uL (140-440); RDW 12.3 % (11.5-14.5)
[2023-06-09 11:17] LABS: BUN/Creat Ratio 17.83 Ratio (12.00-20.00); Blood Urea Nitrogen 10.7 mg/dL (9.0-27.0); Calcium 9.6 mg/dL (8.7-10.3); Carbon Dioxide 24.8 mmol/L (21.6-31.8); Chloride 99 mmol/L (96-109); Glucose 226 mg/dL (70-110); Potassium 4.3 mmol/L (3.5-5.5); Sodium 138 mmol/L (135-145)
--- NOTE | 2023-06-09 13:06 | P.PN ---
Subjective Progress Note Date: 06/09/23 Hospital Course: 62-year-old female with history of COPD, nicotine dependence, lupus, chronic back pain, dyslipidemia presenting with shortness of breath. In the ED, temperature was 99, pulse 128, respiratory rate 18, blood pressure 140/78, saturating at 88% on room air. Chest x-ray independently interpreted does not show any acute opacities. WBC 20.6, platelet 594, creatinine 0.6, COVID-19 positive. Patient admitted for COPD exacerbation. Patient is not improving, likely has underlying. Started on IV antibiotics. Subjective: Patient seen and examined at bedside. No acute events overnight. Continues to have significant cough, respiratory function still about the same. Pertinent positives and negatives as discussed above, a complete review of systems was performed and all other systems are negative. Vitals Signs Reviewed. General: nontoxic, no distress, appears at stated age Derm: warm, dry Head: atraumatic, normocephalic, symmetric Eyes: EOMI, no lid lag, anicteric sclera Mouth: no lip lesion, mucus membranes moist Cardiovascular: S1S2 reg, no murmur Lungs: CTA bilateral, no rhonchi, no rales , no accessory muscle use, supplemental oxygen Abdominal: soft, nontender to palpation, no guarding, no appreciable organomegaly Ext: no gross muscle atrophy, no edema, no contractures Neuro: CN II-XI grossly intact, no focal neuro deficits Psych: Alert, oriented, appropriate affect Data Reviewed Today: Pertinent Labs: WBC 18.3, platelet 506, creatinine 0.6 Imaging: No new imaging Assessment and Plan: Acute COPD exacerbation Acute hypoxic respiratory failure Sepsis secondary to Likely suspected superimposed bacterial pneumonia COVID-19 infection -wean O2 -DuoNeb's 4 times a day, every 2 hours as needed -On Solu-Medrol 60 mg IV every 6 hours -sputum cx, blood cx pending -Patient not making much improvement, pro-calcitonin pending -Started on IV ceftriaxone 2 g daily, IV azithromycin 500 mg daily -D-dimer also pending -patient is s/p paxlovid anxiety - elavil 50 daily GERD - coninue protonix 40 HLD - lipitor 40 gastroparesis - continue reglan 10qid Lupus, not on any therapy Chronic back pain - continue home therapy, monitor for respiratory depression DVT ppx: Lovenox Code status: Full code Anticipated discharge place: Pending clinical course Anticipated discharge time: Pending clinical course Objective - Vital Signs Vital signs: Vital Signs Temp 99 F 06/08/23 11:07 Pulse 121 H 06/09/23 09:26 Resp 19 06/09/23 09:26 BP 162/83 06/09/23 09:25 Pulse Ox 95 06/09/23 09:25 FiO2 Intake & Output 06/08/23 06/09/23 06/09/23 18:59 06:59 18:59 Weight 62.596 kg Other: Voiding Method Toilet - Labs CBC & Chem 7: 06/09/23 07:50 06/09/23 07:50 Labs: Abnormal Lab Results - Last 24 Hours (Table) 06/09/23 06/09/23 Range/Units 07:50 07:50 WBC 18.30 H (4.50-10.00) X 10*3/uL RBC 4.00 L (4.10-5.20) X 10*6/uL Hct 36.1 L (37.2-46.3) % Plt Count 506 H (140-440) X 10*3/uL MPV 8.5 L (9.5-12.2) FL Immature Gran # 0.06 H (0.00-0.04) X 10*3/uL Neutrophils # 17.27 H (1.80-7.70) X 10*3/uL Lymphocytes # 0.52 L (0.90-5.00) X 10*3/uL Eosinophils # 0 L (0.04-0.35) X 10*3/uL Anion Gap 14.20 H (4.00-12.00) mmol/L Glucose 226 H (70-110) mg/dL
[2023-06-09] MEDS ORDERED: LEVOFLOXACIN 750MG-D5W PMX 750 MG in DEXTROSE/WATER 1 150ML.BAG IVPB SCH (14:00)
[2023-06-09] MEDS: AZITHROMYCIN 500 MG in SODIUM CHLORIDE 0.9% 250 ML IVPB SCH (16:13)
[2023-06-09] MEDS ORDERED: ONDANSETRON 4 MG/2 ML VIAL IVP PRN (16:49)
[2023-06-09] MEDS: AMITRIPTYLINE HCL 50 MG TAB PO SCH (21:15)
[2023-06-10] MEDS: PANTOPRAZOLE 40 MG TABLET PO SCH (05:49)
[2023-06-10] MEDS: methylPREDNISolone SOD SUCCI 125 MG/2 ML VIAL IV SCH ×3 (05:49→17:21)
[2023-06-10] MEDS: GABAPENTIN 300 MG CAP PO SCH ×2 (07:40→21:32)
[2023-06-10] MEDS: ATORVASTATIN 40 MG TAB PO SCH (07:41)
[2023-06-10] MEDS: METOCLOPRAMIDE 10 MG TAB PO SCH ×4 (07:41→21:32)
[2023-06-10] MEDS: methocarbamoL 750 MG TAB PO SCH ×4 (07:41→21:33)
[2023-06-10] MEDS: ENOXAPARIN 40 MG/0.4 ML SYRINGE SQ SCH (07:44)
[2023-06-10] MEDS: ALBUTEROL HFA INHALER INHALATION SCH ×4 (08:26→20:22)
[2023-06-10] MEDS: SYMBICORT 160-4.5 MCG INHALER INHALATION SCH ×2 (08:26→20:22)
[2023-06-10 09:06] LABS: African American GFR (CKD) >90 (>60 ml/min/1.73 sqM); Anion Gap 11 mmol/L; Blood Urea Nitrogen 15 mg/dL (7-17); Calcium 9.4 mg/dL (8.4-10.2); Carbon Dioxide 27 mmol/L (22-30); Chloride 97 mmol/L (98-107); Glucose 133 mg/dL (74-99); Non-African American GFR(CKD) >90 (>60 ml/min/1.73 sqM); Potassium 4.2 mmol/L (3.5-5.1); Sodium 135 mmol/L (137-145)
[2023-06-10] MEDS: AZITHROMYCIN 500 MG in SODIUM CHLORIDE 0.9% 250 ML IVPB SCH (09:45)
[2023-06-10] MEDS ORDERED: LEVOFLOXACIN 500MG-D5W PMX 500 MG in DEXTROSE/WATER 1 100ML.BAG IVPB SCH (11:00)
[2023-06-10 11:10] LABS: Basophils # (A) 0.02 X 10*3/uL (0.00-0.10); Basophils % (A) 0.1 %; Eosinophils # (A) 0 X 10*3/uL (0.04-0.35); Eosinophils % (A) 0 %; HCT 38.5 % (37.2-46.3); HGB 12.8 g/dL (12.0-15.0); Lymphocytes # (A) 0.83 X 10*3/uL (0.90-5.00); Lymphocytes % (A) 5.1 %; MCH 30.4 pg (27.0-32.0); MCHC 33.2 g/dL (32.0-37.0); MCV 91.4 FL (80.0-97.0); Mean Platelet Volume 8.3 FL (9.5-12.2); Monocytes # (A) 0.82 X 10*3/uL (0.20-1.00); NRBC Per 100 WBC 0 X 10*3/uL (0.00-0.01); Neutrophils # (A) 14.54 X 10*3/uL (1.80-7.70); Neutrophils % (A) 89.1 %; Platelet Count 599 X 10*3/uL (140-440); RBC 4.21 X 10*6/uL (4.10-5.20); RDW 12.4 % (11.5-14.5); WBC 16.33 X 10*3/uL (4.50-10.00)
--- NOTE | 2023-06-10 11:44 | P.PN ---
Subjective Progress Note Date: 06/10/23 Hospital Course: 62-year-old female with history of COPD, nicotine dependence, lupus, chronic back pain, dyslipidemia presenting with shortness of breath. In the ED, temperature was 99, pulse 128, respiratory rate 18, blood pressure 140/78, saturating at 88% on room air. Chest x-ray independently interpreted does not show any acute opacities. WBC 20.6, platelet 594, creatinine 0.6, COVID-19 positive. Patient admitted for COPD exacerbation. Patient was not improving, concern for superimposed bacterial infection. Started on IV antibiotics. Now improving. Subjective: Patient seen and examined at bedside. No acute events overnight. Cough is improving. Patient has been off of oxygen while resting. Still occasionally tachycardic with movement. Pertinent positives and negatives as discussed above, a complete review of systems was performed and all other systems are negative. Vitals Signs Reviewed. General: nontoxic, no distress, appears at stated age Derm: warm, dry Head: atraumatic, normocephalic, symmetric Eyes: EOMI, no lid lag, anicteric sclera Mouth: no lip lesion, mucus membranes moist Cardiovascular: S1S2 reg, tachycardia, no murmur Lungs: CTA bilateral, no rhonchi, no rales , no accessory muscle use Abdominal: soft, nontender to palpation, no guarding, no appreciable organomegaly Ext: no gross muscle atrophy, no edema, no contractures Neuro: CN II-XI grossly intact, no focal neuro deficits Psych: Alert, oriented, appropriate affect Data Reviewed Today: Pertinent Labs: WBC 16.33, platelets 599, sodium 135, creatinine 0.46 Imaging: No new imaging Assessment and Plan: Acute COPD exacerbation Acute hypoxic respiratory failure , resolved Sepsis secondary to superimposed bacterial pneumonia COVID-19 infection -DuoNeb's 4 times a day, every 2 hours as needed -On Solu-Medrol 60 mg IV every 6 hours -sputum cx pending, blood cx negative growth to date -Patient not tolerating IV azithromycin, ceftriaxone and azithromycin discontinued, patient started on IV levofloxacin 500 mg every 24 hours -patient is s/p paxlovid anxiety - elavil 50 daily GERD - coninue protonix 40 HLD - lipitor 40 gastroparesis - continue reglan 10qid Lupus, not on any therapy Chronic back pain - continue home therapy, monitor for respiratory depression DVT ppx: Patient is ambulatory, not tolerating Lovenox, refusing subcu heparin Code status: Full code Anticipated discharge place: Home Anticipated discharge time: Likely tomorrow Objective - Vital Signs Vital signs: Vital Signs Temp 97.6 F 06/10/23 07:38 Pulse 99 06/10/23 11:32 Resp 16 06/10/23 11:32 BP 151/74 06/10/23 11:32 Pulse Ox 92 L 06/10/23 11:32 FiO2 Intake & Output 06/09/23 06/10/23 06/10/23 18:59 06:59 18:59 Other: Voiding Method Toilet Toilet # Voids 3 2 1 - Labs CBC & Chem 7: 06/10/23 08:05 06/10/23 08:05 Labs: Abnormal Lab Results - Last 24 Hours (Table) 06/10/23 06/10/23 Range/Units 08:05 08:05 WBC 16.33 H (4.50-10.00) X 10*3/uL Plt Count 599 H (140-440) X 10*3/uL MPV 8.3 L (9.5-12.2) FL Immature Gran # 0.12 H (0.00-0.04) X 10*3/uL Neutrophils # 14.54 H (1.80-7.70) X 10*3/uL Lymphocytes # 0.83 L (0.90-5.00) X 10*3/uL Eosinophils # 0 L (0.04-0.35) X 10*3/uL Sodium 135 L (137-145) mmol/L Chloride 97 L (98-107) mmol/L Creatinine 0.46 L (0.52-1.04) mg/dL Glucose 133 H (74-99) mg/dL Microbiology - Last 24 Hours (Table) 06/08/23 14:28 Blood Culture - Preliminary Blood 06/08/23 14:10 Blood Culture - Preliminary Blood
[2023-06-10] MEDS: AMITRIPTYLINE HCL 50 MG TAB PO SCH (21:33)
[2023-06-11] MEDS: methylPREDNISolone SOD SUCCI 125 MG/2 ML VIAL IV SCH ×2 (00:12→06:26)
[2023-06-11] MEDS: PANTOPRAZOLE 40 MG TABLET PO SCH (06:26)
[2023-06-11 08:15] VITALS: BP 133/61; PULSE 102; RESP 16; TEMP 97.7
[2023-06-11] MEDS: ATORVASTATIN 40 MG TAB PO SCH (08:28)
[2023-06-11] MEDS: GABAPENTIN 300 MG CAP PO SCH (08:28)
[2023-06-11] MEDS: METOCLOPRAMIDE 10 MG TAB PO SCH (08:29)
[2023-06-11] MEDS: methocarbamoL 750 MG TAB PO SCH (08:29)
[2023-06-11] MEDS: ALBUTEROL HFA INHALER INHALATION SCH (08:48)
[2023-06-11] MEDS: SYMBICORT 160-4.5 MCG INHALER INHALATION SCH (08:49)
--- NOTE | 2023-06-11 11:15 | P.DS ---
Providers Date of admission: 06/08/23 14:10 Expected date of discharge: 06/11/23 Attending physician: Cece Umana DO Primary care physician: Maycol Rowan Hospital Course: Discharge Diagnosis: Acute COPD exacerbation Acute hypoxic respiratory failure Sepsis secondary to superimposed bacterial pneumonia COVID-19 infection Hospital Course: 62-year-old female with history of COPD, nicotine dependence, lupus, chronic ba ck pain, dyslipidemia presenting with shortness of breath. In the ED, temperature was 99, pulse 128, respiratory rate 18, blood pressure 140/78, saturating at 88% on room air. Chest x-ray independently interpreted does not show any acute opacities. WBC 20.6, platelet 594, creatinine 0.6, COVID-19 positive. Patient admitted for COPD exacerbation. Patient was not improving, concern for superimposed bacterial infection. Started on IV antibiotics. Respiratory function improved. Patient on room air. Being discharged on a short course of oral antibiotics, oral steroids, and bronchodilators. Patient seen and examined at bedside. Vital signs reviewed and stable. General: nontoxic, no distress, appears at stated age Derm: warm, dry Head: atraumatic, normocephalic, symmetric Eyes: EOMI, no lid lag, anicteric sclera Mouth: no lip lesion, mucus membranes moist Cardiovascular: S1S2 reg, no murmur Lungs: CTA bilateral, no rhonchi, no rales , no accessory muscle use Abdominal: soft, nontender to palpation, no guarding, no appreciable organomegaly Ext: no gross muscle atrophy, no edema, no contractures Neuro: CN II-XI grossly intact, no focal neuro deficits Psych: Alert, oriented, appropriate affect A total of 33 minutes of time were spent preparing this complex discharge summary. Patient was discharged on 06/11/23 at 10. Patient Condition at Discharge: Stable Plan - Discharge Summary New Discharge Prescriptions: New predniSONE [Deltasone] 40 mg PO DAILY #4 tab Levofloxacin [Levaquin] 500 mg PO DAILY 3 Days #3 tab Continue Atorvastatin [Lipitor] 40 mg PO DAILY Pantoprazole Sodium [Protonix] 40 mg PO DAILY Metoclopramide [Reglan] 10 mg PO QID methocarbamoL [Robaxin-750] 750 mg PO QID Albuterol Sulfate [Proair Hfa] 1 - 2 puff INHALATION RT-Q4H PRN PRN Reason: Shortness Of Breath Butalb/Acetaminophen/Caffeine [Fioricet 50-300-40 mg Capsule] 1 cap PO Q4HR PRN PRN Reason: Migraine Headache Ipratropium-Albuterol Nebulize [Duoneb 0.5 mg-3 mg/3 ml Soln] 3 ml INHALATION RT-TID PRN PRN Reason: Shortness Of Breath oxyCODONE HCL [oxyCODONE HCL (IR)] 20 mg PO QID Gabapentin 600 mg PO BID Budesonide/Formoterol Fumarate [Breyna 160-4.5 Mcg Inhaler] 2 puff INHALATION RT-BID Amitriptyline HCl [Elavil] 50 mg PO HS Discontinued Doxycycline Hyclate 100 mg PO BID predniSONE [Deltasone] See Taper PO DIRECTED Discharge Medication List Atorvastatin [Lipitor] 40 mg PO DAILY 04/10/14 [History] Metoclopramide [Reglan] 10 mg PO QID 04/10/14 [History] Pantoprazole Sodium [Protonix] 40 mg PO DAILY 04/10/14 [History] Albuterol Sulfate [Proair Hfa] 1 - 2 puff INHALATION RT-Q4H PRN 01/22/22 [History] Butalb/Acetaminophen/Caffeine [Fioricet 50-300-40 mg Capsule] 1 cap PO Q4HR PRN 01/22/22 [History] Ipratropium-Albuterol Nebulize [Duoneb 0.5 mg-3 mg/3 ml Soln] 3 ml INHALATION RT -TID PRN 01/22/22 [History] methocarbamoL [Robaxin-750] 750 mg PO QID 01/22/22 [History] Amitriptyline HCl [Elavil] 50 mg PO HS 06/08/23 [History] Budesonide/Formoterol Fumarate [Breyna 160-4.5 Mcg Inhaler] 2 puff INHALATION RT-BID 06/08/23 [History] Gabapentin 600 mg PO BID 06/08/23 [History] oxyCODONE HCL [oxyCODONE HCL (IR)] 20 mg PO QID 06/08/23 [History] Levofloxacin [Levaquin] 500 mg PO DAILY 3 Days #3 tab 06/11/23 [Rx] predniSONE [Deltasone] 40 mg PO DAILY #4 tab 06/11/23 [Rx] Follow up Appointment(s)/Referral(s): Maycol Rowan DO [Primary Care Provider] - 06/17/23 2:20 pm (in [place] office) Patient Instructions/Handouts: COPD (Chronic Obstructive Pulmonary Disease) (DC), Community Acquired Pneumonia (DC) Activity/Diet/Wound Care/Special Instructions: Please see your PCP. Discharge Disposition: HOME SELF-CARE
== END 2023-06-11 10:47 | disposition home or self-care (01) | DRG 871 ==
LOC: EC 11:00 → 4SSUR 14:10 → 1SOBS 06-10 12:08
PROVIDERS: ADMIT Internal Medicine; ATTEND Internal Medicine
DX: A41.89 Other specified sepsis (principal); J15.9 Unspecified bacterial pneumonia; J96.01 Acute respiratory failure with hypoxia; U07.1 COVID-19; J44.0 Chronic obstructive pulmonary disease with (acute) lower respiratory infection; J44.1 Chronic obstructive pulmonary disease with (acute) exacerbation; M32.9 Systemic lupus erythematosus, unspecified; M54.9 Dorsalgia, unspecified; Z87.891 Personal history of nicotine dependence; G44.009 Cluster headache syndrome, unspecified, not intractable; F41.9 Anxiety disorder, unspecified; G89.29 Other chronic pain; K31.84 Gastroparesis; K21.9 Gastro-esophageal reflux disease without esophagitis; M79.7 Fibromyalgia; Z79.51 Long term (current) use of inhaled steroids; Z79.899 Other long term (current) drug therapy; Z79.891 Long term (current) use of opiate analgesic; Z98.1 Arthrodesis status
CPT/HCPCS: 36415; 71046; 80048; 80053; 83605; 83735; 84145; 85025; 85379; 87040; 87636; 93005; 94640; 96365; 96366; 96367; 96375; 96376; 99285

== ENCOUNTER 2023-11-13 09:58 | Inpatient (IN) | payer BC ==
--- NOTE | 2023-11-13 10:07 | ED ---
General Adult HPI - General Stated complaint: SOB Time Seen by Provider: 11/13/23 10:00 Source: patient, RN notes reviewed, old records reviewed - History of Present Illness Initial comments: This is a 63-year-old female with a past medical history significant for COPD. Patient presents to the emergency department with difficulty breathing. Patient and route got breathing treatment as well as Solu-Medrol. Patient states she has a difficult time tolerating BiPAP but she will try. Patient denies any fever or chills. Patient states she has been having a much harder time breathing since she had COVID in May. Patient denies any chest pain. Patient has abdominal pain patient has nausea vomiting or diarrhea. - Related Data Home Medications Medication Instructions Recorded Confirmed Atorvastatin [Lipitor] 40 mg PO DAILY 04/10/14 06/08/23 Metoclopramide [Reglan] 10 mg PO QID 04/10/14 06/08/23 Pantoprazole Sodium [Protonix] 40 mg PO DAILY 04/10/14 06/08/23 Albuterol Sulfate [Proair Hfa] 1 - 2 puff INHALATION RT-Q4H PRN 01/22/22 06/08/23 Butalb/Acetaminophen/Caffeine 1 cap PO Q4HR PRN 01/22/22 06/08/23 [Fioricet 50-300-40 mg Capsule] Ipratropium-Albuterol Nebulize 3 ml INHALATION RT-TID PRN 01/22/22 06/08/23 [Duoneb 0.5 mg-3 mg/3 ml Soln] methocarbamoL [Robaxin-750] 750 mg PO QID 01/22/22 06/08/23 Amitriptyline HCl [Elavil] 50 mg PO HS 06/08/23 06/08/23 Budesonide/Formoterol Fumarate 2 puff INHALATION RT-BID 06/08/23 06/08/23 [Breyna 160-4.5 Mcg Inhaler] Gabapentin 600 mg PO BID 06/08/23 06/08/23 oxyCODONE HCL [oxyCODONE HCL (IR)] 20 mg PO QID 06/08/23 06/08/23 Previous Rx's Medication Instructions Recorded Levofloxacin [Levaquin] 500 mg PO DAILY 3 Days #3 tab 06/11/23 predniSONE [Deltasone] 40 mg PO DAILY #4 tab 06/11/23 Allergies Allergy/AdvReac Type Severity Reaction Status Date / Time erythromycin base Allergy Abdominal Verified 11/13/23 10:07 Pain Review of Systems ROS Statement: Those systems with pertinent positive or pertinent negative responses have been documented in the HPI. ROS Other: All systems not noted in ROS Statement are negative. Past Medical History Past Medical History: Asthma, Fibromyalgia, Hyperlipidemia, Osteoarthritis (OA) Additional Past Medical History / Comment(s): CLUSTER HEADACHES, LUPUS, HX ULCERS, MEDTRONIC PAIN PUMP LEFT BUTTOCKS- chronic back pain, "complete cervical/lumbar fusion" History of Any Multi-Drug Resistant Organisms: None Reported Past Surgical History: Appendectomy, Back Surgery, Breast Surgery Additional Past Surgical History / Comment(s): LUMBAR LAMINECTOMY X3, FUSION C-4 AND C-5, MEDTRONIC PAIN PUMP. Benign stereotactic core bx. right breast 2003, benign u/s core bx. right breast 2003. Past Anesthesia/Blood Transfusion Reactions: No Reported Reaction Past Psychological History: No Psychological Hx Reported Smoking Status: Former smoker Past Alcohol Use History: None Reported Past Drug Use History: None Reported - Past Family History Mother Family Medical History: Deep Vein Thrombosis (DVT) Father Family Medical History: Cancer Additional Family Medical History / Comment(s): LUNG General Exam - General Exam Comments Initial Comments: GENERAL: Patient is well-developed and well-nourished. Patient is nontoxic and well- hydrated and is in moderate distress. ENT: Neck is soft and supple. No significant lymphadenopathy is noted. Oropharynx is clear. Moist mucous membranes. Neck has full range of motion without eliciting any pain. EYES: The sclera were anicteric and conjunctiva were pink and moist. Extraocular movements were intact and pupils were equal round and reactive to light. Eyelids were unremarkable. PULMONARY: Patient is moving air extremely poorly CARDIOVASCULAR: There is a regular rate and rhythm without any murmurs gallops or rubs. ABDOMEN: Soft and nontender with normal bowel sounds. SKIN: Skin is clear with no lesions or rashes and otherwise unremarkable. NEUROLOGIC: Patient is alert and oriented x3. Cranial nerves II through XII are grossly intact. Motor and sensory are also intact. Normal speech, volume and content. Symmetrical smile. MUSCULOSKELETAL: Normal extremities with adequate strength and full range of motion. No lower extremity swelling or edema. No calf tenderness. LYMPHATICS: No significant lymphadenopathy is noted PSYCHIATRIC: Normal psychiatric evaluation. Course Vital Signs 11/13/23 11/13/23 11/13/23 10:02 10:20 10:38 Temperature 98.5 F Pulse Rate 133 H 137 H 146 H Respiratory 42 H 38 H Rate Blood Pressure 187/96 181/105 O2 Sat by Pulse 98 93 L Oximetry Fraction of 40 Inspired Oxygen (FIO2) 11/13/23 11/13/23 11/13/23 10:53 11:00 11:08 Temperature Pulse Rate 151 H 149 H Respiratory 18 Rate Blood Pressure O2 Sat by Pulse 96 91 L Oximetry Fraction of Inspired Oxygen (FIO2) 11/13/23 11:37 Temperature Pulse Rate Respiratory 18 Rate Blood Pressure O2 Sat by Pulse Oximetry Fraction of Inspired Oxygen (FIO2) Medical Decision Making - Medical Decision Making EKG is interpreted by myself. EKG shows a sinus tachycardia at a rate of 148 bpm MS 139 QRS of 78 QT interval is 282 QTc is 367. Patient's EKG shows no ST segment ovation or depression. Was pt. sent in by a medical professional or institution (, PA, DEVELOPER PROGRAMMER ANALYST, urgent care, hospital, or [place] health care facility...) When possible be specific @ -No Did you speak to anyone other than the patient for history (EMS, parent, family, police, friend...)? What history was obtained from this source @ -No Did you review nursing and triage notes (agree or disagree)? Why? @ -I reviewed and agree with nursing and triage notes Were old charts reviewed (outside hosp., previous admission, EMS record, old EKG, old radiological studies, urgent care reports/EKG's, [place] health care facility records)? Report findings @ -I looked at today's chest x-ray to her x-ray from a prior admission and there is no significant abnormality. Differential Diagnosis (chest pain, altered mental status, abdominal pain women, abdominal pain men, vaginal bleeding, weakness, fever, dyspnea, syncope, headache, dizziness, GI bleed, back pain, seizure, CVA, palpatations, mental health, musculoskeletal)? @ -Differential Dyspnea: Coronary syndrome, arrhythmia, tamponade, asthma, COPD, pulmonary embolism, pneumonia, pneumothorax, pulmonary effusion, anaphylaxis, diabetic ketoacidosis, flailed chest, pulmonary contusion, diaphragmatic rupture, anemia, n euromuscular, this is not meant to be an all-inclusive list. EKG interpreted by me (3pts min.). @ -As above X-rays interpreted by me (1pt min.). @ -Chest x-ray shows no acute abnormality CT interpreted by me (1pt min.). @ -None done U/S interpreted by me (1pt. min.). @ -None done What testing was considered but not performed or refused? (CT, X-rays, U/S, labs)? Why? @ -None What meds were considered but not given or refused? Why? @ -None Did you discuss the management of the patient with other professionals (professionals i.e. , PA, DEVELOPER PROGRAMMER ANALYST, lab, RT, psych nurse, social work therapist, controls design engineer, teacher, court security officer, manager hospice)? Give summary @ -I spoke with [facility] physicians they agreed to admit the patient admit the patient wrote admitting orders Was smoking cessation discussed for >3mins.? @ -No Was critical care preformed (if so, how long)? @ -No Were there social determinants of health that impacted care today? How? (Homelessness, low income, unemployed, alcoholism, drug addiction, anderson sportation, low edu. Level, literacy, decrease access to med. care, long term, rehab)? @ -No Was there de-escalation of care discussed even if they declined (Discuss DNR or withdrawal of care, Hospice)? DNR status @ -No What co-morbidities impacted this encounter? (DM, HTN, Smoking, COPD, CAD, Cancer, CVA, ARF, Chemo, Hep., AIDS, mental health diagnosis, sleep apnea, morbid obesity)? @ -None Was patient admitted / discharged? Hospital course, mention meds given and route, prescriptions, significant lab abnormalities, going to OR and other pertinent info. @ -Patient was immediately put on BiPAP because she was not moving much air. She was given a shot of terbutaline and albuterol treatments and she had already received Solu-Medrol in the ambulance. She was feeling much better she was actually 100% on her ABG showed a normal pH as well as a pCO2 of 50. I spoke with Dr. Garcia he agreed to admit the patient admit the patient wrote admitting orders Undiagnosed new problem with uncertain prognosis? @ -No Drug Therapy requiring intensive monitoring for toxicity (Heparin, Nitro, Insulin, Cardizem)? @ -No Were any procedures done? @ -No Diagnosis/symptom? @ -COPD exacerbation Acute, or Chronic, or Acute on Chronic? @ -Acute Uncomplicated (without systemic symptoms) or Complicated (systemic symptoms)? @ -Default Side effects of treatment? @ -Comp Exacerbation, Progression, or Severe Exacerbation? @ -No Poses a threat to life or bodily function? How? (Chest pain, USA, VT, pneumonia, PE, COPD, DKA, ARF, appy, cholecystitis, CVA, Diverticulitis, Homicidal, Suicidal, threat to staff... and all critical care pts) @ -Yes this can lead to hypoxia and endorgan dysfunction - Lab Data Result diagrams: 11/13/23 10:10 11/13/23 10:10 Lab Results 11/13/23 11/13/23 11/13/23 Range/Units 10:10 10:10 10:10 WBC 9.7 (3.8-10.6) k/uL RBC 4.50 (3.80-5.40) m/uL Hgb 13.2 (11.4-16.0) gm/dL Hct 41.3 (34.0-46.0) % MCV 91.9 (80.0-100.0) fL MCH 29.5 (25.0-35.0) pg MCHC 32.1 (31.0-37.0) g/dL RDW 13.3 (11.5-15.5) % Plt Count 311 (150-450) k/uL MPV 7.0 Neutrophils % 90 % Lymphocytes % 6 % Monocytes % 3 % Eosinophils % 1 % Basophils % 0 % Neutrophils # 8.7 H (1.3-7.7) k/uL Lymphocytes # 0.6 L (1.0-4.8) k/uL Monocytes # 0.2 (0-1.0) k/uL Eosinophils # 0.1 (0-0.7) k/uL Basophils # 0.0 (0-0.2) k/uL PT 10.6 (10.0-12.5) sec INR 1.0 (<1.2) APTT 21.5 L (22.0-30.0) sec Sample Site ABG pH (7.35-7.45) ABG pCO2 (35-45) mmHg ABG pO2 (83-108) mmHg ABG HCO3 (21-25) mmol/L ABG Total CO2 (19-24) mmol/L ABG O2 Saturation (94-97) % ABG Base Excess mmol/L Ross Test FiO2 % Sodium 137 (137-145) mmol/L Potassium 4.9 (3.5-5.1) mmol/L Chloride 107 (98-107) mmol/L Carbon Dioxide 25 (22-30) mmol/L Anion Gap 5 mmol/L BUN 11 (7-17) mg/dL Creatinine 0.44 L (0.52-1.04) mg/dL Est GFR (CKD-EPI)AfAm >90 (>60 ml/min/1.73 sqM) Est GFR (CKD-EPI)NonAf >90 (>60 ml/min/1.73 sqM) Glucose 142 H (74-99) mg/dL Plasma Lactic Acid Paco (0.7-2.0) mmol/L Calcium 8.7 (8.4-10.2) mg/dL Magnesium 1.5 L (1.6-2.3) mg/dL Total Bilirubin 1.1 (0.2-1.3) mg/dL AST 37 H (14-36) U/L ALT 19 (4-34) U/L Alkaline Phosphatase 66 (38-126) U/L Troponin I (0.000-0.034) ng/mL Total Protein 7.3 (6.3-8.2) g/dL Albumin 4.4 (3.5-5.0) g/dL 11/13/23 11/13/23 11/13/23 Range/Units 10:10 10:10 10:24 WBC (3.8-10.6) k/uL RBC (3.80-5.40) m/uL Hgb (11.4-16.0) gm/dL Hct (34.0-46.0) % MCV (80.0-100.0) fL MCH (25.0-35.0) pg MCHC (31.0-37.0) g/dL RDW (11.5-15.5) % Plt Count (150-450) k/uL MPV Neutrophils % % Lymphocytes % % Monocytes % % Eosinophils % % Basophils % % Neutrophils # (1.3-7.7) k/uL Lymphocytes # (1.0-4.8) k/uL Monocytes # (0-1.0) k/uL Eosinophils # (0-0.7) k/uL Basophils # (0-0.2) k/uL PT (10.0-12.5) sec INR (<1.2) APTT (22.0-30.0) sec Sample Site lrad ABG pH 7.34 L (7.35-7.45) ABG pCO2 50 H (35-45) mmHg ABG pO2 137 H (83-108) mmHg ABG HCO3 27 H (21-25) mmol/L ABG Total CO2 28 H (19-24) mmol/L ABG O2 Saturation 99.1 H (94-97) % ABG Base Excess 0.1 mmol/L Ross Test Yes FiO2 100 % Sodium (137-145) mmol/L Potassium (3.5-5.1) mmol/L Chloride (98-107) mmol/L Carbon Dioxide (22-30) mmol/L Anion Gap mmol/L BUN (7-17) mg/dL Creatinine (0.52-1.04) mg/dL Est GFR (CKD-EPI)AfAm (>60 ml/min/1.73 sqM) Est GFR (CKD-EPI)NonAf (>60 ml/min/1.73 sqM) Glucose (74-99) mg/dL Plasma Lactic Acid Paco 1.1 (0.7-2.0) mmol/L Calcium (8.4-10.2) mg/dL Magnesium (1.6-2.3) mg/dL Total Bilirubin (0.2-1.3) mg/dL AST (14-36) U/L ALT (4-34) U/L Alkaline Phosphatase (38-126) U/L Troponin I 0.019 (0.000-0.034) ng/mL Total Protein (6.3-8.2) g/dL Albumin (3.5-5.0) g/dL Disposition Clinical Impression: COPD with acute exacerbation, Hypomagnesemia Disposition: ADMITTED IP TO THIS [facility] Time of Disposition: 11:32
[2023-11-13] MEDS: SODIUM CHLORIDE 0.9% 500 ML 500 ML IV STA (10:14)
[2023-11-13] MEDS: LORazepam 2 MG/ML INJ IV STA ×2 (10:14→11:11)
[2023-11-13] MEDS: TERBUTALINE 1 MG/ML VIAL SQ STA (10:16)
[2023-11-13 10:27] LABS: ABG Base Excess 0.1 mmol/L; ABG HCO3 27 mmol/L (21-25); ABG Oxygen Saturation 99.1 % (94-97); ABG PCO2 50 mmHg (35-45); ABG PH 7.34 (7.35-7.45); ABG PO2 137 mmHg (83-108); ABG TCO2 28 mmol/L (19-24); Allen Test Performed? Yes
[2023-11-13] MEDS: IPRATROPIUM 0.5 MG/2.5 ML NEBU INHALATION STA (10:33)
[2023-11-13] MEDS: ALBUTEROL NEBULIZED 2.5 MG/3 ML INHALATION STA (10:33)
[2023-11-13] MEDS: BUTALB/APAP/CAFF 50-325-40MG TAB PO STA (10:52)
[2023-11-13 10:53] LABS: Basophils % (A) 0 %; Eosinophils # (A) 0.1 k/uL (0-0.7); Eosinophils % (A) 1 %; HCT 41.3 % (34.0-46.0); HGB 13.2 gm/dL (11.4-16.0); Lymphocytes # (A) 0.6 k/uL (1.0-4.8); Lymphocytes % (A) 6 %; MCH 29.5 pg (25.0-35.0); MCHC 32.1 g/dL (31.0-37.0); MCV 91.9 fL (80.0-100.0); Monocytes # (A) 0.2 k/uL (0-1.0); Monocytes % (A) 3 %; Neutrophils # (A) 8.7 k/uL (1.3-7.7); Neutrophils % (A) 90 %; Platelet Count 311 k/uL (150-450); RDW 13.3 % (11.5-15.5); WBC 9.7 k/uL (3.8-10.6)
--- NOTE | 2023-11-13 11:07 | XR ---
EXAMINATION TYPE: XR chest 1V DATE OF EXAM: 11/13/2023 10:54 AM CLINICAL INDICATION:Female, 63 years old with history of difficulty breathing COMPARISON: Chest radiographs from 06/08/2023 TECHNIQUE: XR chest 1V Frontal view of the chest. FINDINGS: Lungs/Pleura: There is no evidence of pleural effusion, focal consolidation, or pneumothorax. Pulmonary vascularity: Unremarkable. Heart/mediastinum: Cardiomediastinal silhouette is unremarkable. Musculoskeletal: No acute osseous pathology. IMPRESSION: 1. No acute cardiopulmonary disease process. 2. COPD changes.
[2023-11-13 11:10] LABS: Prothrombin Time 10.6 sec (10.0-12.5)
[2023-11-13 11:14] LABS: ALT 19 U/L (4-34); AST 37 U/L (14-36); African American GFR (CKD) >90 (>60 ml/min/1.73 sqM); Albumin 4.4 g/dL (3.5-5.0); Alkaline Phosphatase 66 U/L (38-126); Anion Gap 5 mmol/L; Blood Urea Nitrogen 11 mg/dL (7-17); Calcium 8.7 mg/dL (8.4-10.2); Carbon Dioxide 25 mmol/L (22-30); Chloride 107 mmol/L (98-107); Glucose 142 mg/dL (74-99); Magnesium 1.5 mg/dL (1.6-2.3); Non-African American GFR(CKD) >90 (>60 ml/min/1.73 sqM); Sodium 137 mmol/L (137-145); Total Bilirubin 1.1 mg/dL (0.2-1.3); Total Protein 7.3 g/dL (6.3-8.2)
[2023-11-13 11:16] LABS: Partial Thromboplastin Time 21.5 sec (22.0-30.0)
[2023-11-13 11:25] LABS: Potassium 4.9 mmol/L (3.5-5.1)
[2023-11-13] MEDS ORDERED: NALOXONE 0.4 MG/ML 1 ML VIAL IVP PRN (11:32)
[2023-11-13] MEDS ORDERED: IPRATROPIUM-ALBUTEROL 3 ML NEB INHALATION PRN ×2 (11:32→16:11)
[2023-11-13] MEDS: MAGNESIUM SULFATE-D5W PMX 1 GM in DEXTROSE/WATER 1 100ML.BAG IVPB ONE (11:46)
[2023-11-13] MEDS: methylPREDNISolone SOD SUCCI 125 MG/2 ML VIAL IV SCH (11:51)
[2023-11-13] MEDS: IPRATROPIUM-ALBUTEROL 3 ML NEB INHALATION SCH (11:51)
[2023-11-13] MEDS: METOCLOPRAMIDE 10 MG TAB PO SCH (17:01)
[2023-11-13] MEDS: GABAPENTIN 300 MG CAP PO STA (17:01)
[2023-11-13] MEDS: methocarbamoL 750 MG TAB PO SCH (17:03)
--- NOTE | 2023-11-13 17:15 | P.HPIM ---
History of Present Illness H&P Date: 11/13/23 Chief Complaint: dyspnea 63-year-old woman with a history of COPD/asthma, hyperlipidemia, GERD, chronic pain presented for evaluation of dyspnea. Patient noted hypoxia down to the 80s despite her 3 L of oxygen. She notes that she has been having a much harder time of breathing since she has had COVID in May. She otherwise denies fevers, chills, nausea, vomiting. In the emergency room, patient was afebrile, 187/96, heart rate 133, respiratory rate was 42. Patient was started on BiPAP with FiO2 of 40%, PEEP of 5 and improved to 96% while her heart rates improved to 116. CBC was unremarkable. Basic metabolic panel is unremarkable. Liver function test were unremarkable. Troponins 0.019. ABG showed pH of 7.34, pCO2 of 50, pO2 of 137. Chest x-ray showed hyperinflated lungs with clear parenchyma bilaterally. EKG demonstrated sinus tachycardia with right axis deviation. All Systems reviewed and pertinent positives and negatives noted in HPI, all oth er symptoms are negative Gen: in no apparent distress, resting comfortably in bed Eyes: PERRL, no scleral injection or icterus HENT: normocephalic, atraumatic, good hearing acuity, moist mucous membranes Neck: no tracheal deviation, full range of motion Resp: good air exchange, breathing comfortably with no accessory muscle use, no tactile fremitus CVS: good distal perfusion x 4, no pitting edema GI: soft, NTTP, ND, no hepatosplenomegaly : no suprapubic tenderness, no CVAT, gonzales catheter not present MSK: no clubbing, no cyanosis, no noted contractures of extremities Skin: no noted rashes, petechiae; temperature of skin is appropriate Neuro: moving all extremities without signs of weakness, CN II-XII intact Psych: cooperative, euthymic mood, insight and judgment intact Labs and imaging as above Assessment/plan: Acute on chronic hypoxemic respiratory failure with hypercarbia COPD exacerbation -Patient admitted as an inpatient with telemetry -Pulmonology consulted -Oxygen as needed -DuoNebs -Steroids -Antibiotics deferred Chronic pain Hyperlipidemia GERD -Home medications reviewed and reconciled Past Medical History Past Medical History: Asthma, Fibromyalgia, Hyperlipidemia, Osteoarthritis (OA) Additional Past Medical History / Comment(s): CLUSTER HEADACHES, LUPUS, HX ULCERS, MEDTRONIC PAIN PUMP LEFT BUTTOCKS- chronic back pain, "complete cervical/lumbar fusion" History of Any Multi-Drug Resistant Organisms: None Reported Past Surgical History: Appendectomy, Back Surgery, Breast Surgery Additional Past Surgical History / Comment(s): LUMBAR LAMINECTOMY X3, FUSION C-4 AND C-5, MEDTRONIC PAIN PUMP. Benign stereotactic core bx. right breast 2003, benign u/s core bx. right breast 2003. Past Anesthesia/Blood Transfusion Reactions: No Reported Reaction Past Psychological History: No Psychological Hx Reported Smoking Status: Former smoker Past Alcohol Use History: None Reported Past Drug Use History: None Reported - Past Family History Mother Family Medical History: Deep Vein Thrombosis (DVT) Father Family Medical History: Cancer Additional Family Medical History / Comment(s): LUNG Medications and Allergies Home Medications Medication Instructions Recorded Confirmed Type Atorvastatin [Lipitor] 40 mg PO DAILY 04/10/14 11/13/23 History Metoclopramide [Reglan] 10 mg PO QID 04/10/14 11/13/23 History Pantoprazole Sodium [Protonix] 40 mg PO DAILY 04/10/14 11/13/23 History Albuterol Sulfate [Proair Hfa] 1 - 2 puff INHALATION RT-Q4H PRN 01/22/22 11/13/23 History Butalb/Acetaminophen/Caffeine 1 cap PO Q4HR PRN 01/22/22 11/13/23 History [Fioricet 50-300-40 mg Capsule] Ipratropium-Albuterol Nebulize 3 ml INHALATION RT-TID PRN 01/22/22 11/13/23 History [Duoneb 0.5 mg-3 mg/3 ml Soln] methocarbamoL [Robaxin-750] 750 mg PO QID 01/22/22 11/13/23 History Amitriptyline HCl [Elavil] 75 mg PO HS PRN 06/08/23 11/13/23 History Budesonide/Formoterol Fumarate 2 puff INHALATION RT-BID 06/08/23 11/13/23 History [Breyna 160-4.5 Mcg Inhaler] Gabapentin 600 mg PO BID 06/08/23 11/13/23 History oxyCODONE HCL [oxyCODONE HCL (IR)] 20 mg PO QID 06/08/23 11/13/23 History Levofloxacin [Levaquin] 500 mg PO DAILY 3 Days #3 tab 06/11/23 11/13/23 Rx LORazepam [Ativan] 1 tab PO DAILY PRN 11/13/23 11/13/23 History Pantoprazole [Protonix] 40 mg PO DAILY PRN 11/13/23 11/13/23 History predniSONE See Taper PO DAILY 11/13/23 11/13/23 History Allergies Allergy/AdvReac Type Severity Reaction Status Date / Time erythromycin base Allergy Abdominal Verified 11/13/23 10:07 Pain Physical Exam Osteopathic Statement: *. No significant issues noted on an osteopathic structural exam other than those noted in the History and Physical/Consult. Vitals: Vital Signs Temp Pulse Resp BP Pulse Ox FiO2 11/13/23 17:00 116 H 28 H 94 L 11/13/23 16:00 121 H 18 145/92 95 11/13/23 15:20 117 H 11/13/23 15:05 114 H 40 11/13/23 14:54 122 H 28 H 95 11/13/23 13:39 135 H 18 129/98 94 L 11/13/23 12:12 144 H 31 H 11/13/23 12:06 141 H 11/13/23 11:52 140 H 11/13/23 11:37 18 11/13/23 11:08 149 H 18 91 L 11/13/23 11:00 151 H 11/13/23 10:53 96 11/13/23 10:38 146 H 40 11/13/23 10:20 137 H 38 H 181/105 93 L 11/13/23 10:02 98.5 F 133 H 42 H 187/96 98 Intake and Output 11/13/23 11/13/23 11/13/23 06:59 14:59 22:59 Other: Weight 66.224 kg Results CBC & Chem 7: 11/13/23 10:10 11/13/23 10:10 Labs: Abnormal Lab Results - Last 24 Hours (Table) 11/13/23 11/13/23 11/13/23 Range/Units 10:10 10:10 10:10 Neutrophils # 8.7 H (1.3-7.7) k/uL Lymphocytes # 0.6 L (1.0-4.8) k/uL APTT 21.5 L (22.0-30.0) sec ABG pH (7.35-7.45) ABG pCO2 (35-45) mmHg ABG pO2 (83-108) mmHg ABG HCO3 (21-25) mmol/L ABG Total CO2 (19-24) mmol/L ABG O2 Saturation (94-97) % Creatinine 0.44 L (0.52-1.04) mg/dL Glucose 142 H (74-99) mg/dL Magnesium 1.5 L (1.6-2.3) mg/dL AST 37 H (14-36) U/L 11/13/23 Range/Units 10:24 Neutrophils # (1.3-7.7) k/uL Lymphocytes # (1.0-4.8) k/uL APTT (22.0-30.0) sec ABG pH 7.34 L (7.35-7.45) ABG pCO2 50 H (35-45) mmHg ABG pO2 137 H (83-108) mmHg ABG HCO3 27 H (21-25) mmol/L ABG Total CO2 28 H (19-24) mmol/L ABG O2 Saturation 99.1 H (94-97) % Creatinine (0.52-1.04) mg/dL Glucose (74-99) mg/dL Magnesium (1.6-2.3) mg/dL AST (14-36) U/L
[2023-11-13] MEDS: SYMBICORT 160-4.5 MCG INHALER INHALATION SCH (20:54)
[2023-11-13] MEDS: GABAPENTIN 300 MG CAP PO SCH (21:31)
[2023-11-13] MEDS: AMOXIC-POT CLAV 875-125MG 1 EACH TAB PO SCH (21:32)
[2023-11-14] MEDS: BUTALB/APAP/CAFF 50-325-40MG TAB PO STA (04:37)
[2023-11-14] MEDS: PANTOPRAZOLE 40 MG TABLET PO SCH (08:34)
[2023-11-14] MEDS: ATORVASTATIN 40 MG TAB PO SCH (08:34)
[2023-11-14] MEDS: LORazepam 1 MG TAB PO PRN (08:46)
[2023-11-14] MEDS: GABAPENTIN 300 MG CAP PO STA (09:25)
--- NOTE | 2023-11-14 12:27 | P.PN ---
Subjective Progress Note Date: 11/14/23 Pts dyspnea improving, but still not having good exercise tolerance. Cough has dried up. Denies fevers, chills. Gen: in no apparent distress, resting comfortably in bed Eyes: PERRL, no scleral injection or icterus HENT: normocephalic, atraumatic, good hearing acuity, moist mucous membranes Neck: no tracheal deviation, full range of motion Resp: good air exchange, breathing comfortably with no accessory muscle use, no tactile fremitus CVS: good distal perfusion x 4, no pitting edema GI: soft, NTTP, ND, no hepatosplenomegaly : no suprapubic tenderness, no CVAT, gonzales catheter not present MSK: no clubbing, no cyanosis, no noted contractures of extremities Skin: no noted rashes, petechiae; temperature of skin is appropriate Neuro: moving all extremities without signs of weakness, CN II-XII intact Psych: cooperative, euthymic mood, insight and judgment intact Hospital Course: 63-year-old woman with a history of COPD/asthma, hyperlipidemia, GERD, chronic pain presented for evaluation of dyspnea. In the emergency room, patient was afebrile, 187/96, heart rate 133, respiratory rate was 42. Patient was started on BiPAP with FiO2 of 40%, PEEP of 5 and improved to 96% while her heart rates improved to 116. CBC was unremarkable. Basic metabolic panel is unremarkable. Liver function test were unremarkable. Troponins 0.019. ABG showed pH of 7.34, pCO2 of 50, pO2 of 137. Chest x-ray showed hyperinflated lungs with clear parenchyma bilaterally. EKG demonstrated sinus tachycardia with right axis deviation. Assessment/plan: Acute on chronic hypoxemic respiratory failure with hypercarbia COPD exacerbation -Patient admitted as an inpatient with telemetry -Pulmonology consulted -Oxygen as needed -DuoNebs -Steroids -Antibiotics with augmentin BID Chronic pain Hyperlipidemia GERD -Home medications reviewed and reconciled Objective - Vital Signs Vital signs: Vital Signs Temp 97.9 F 11/14/23 08:00 Pulse 94 11/14/23 11:33 Resp 22 11/14/23 08:00 BP 134/104 11/14/23 08:00 Pulse Ox 92 L 11/14/23 08:00 FiO2 40 11/13/23 15:05 Intake & Output 06/01/2811/14/23 11/14/23 18:59 06:59 18:59 Weight 66.224 kg - Labs CBC & Chem 7: 11/13/23 10:10 11/13/23 10:10
[2023-11-14] MEDS: AMITRIPTYLINE HCL 25 MG TAB PO PRN (22:21)
[2023-11-15 02:22] LABS: Basophils % (A) 0 %; Eosinophils % (A) 0 %; HCT 36.1 % (34.0-46.0); HGB 11.7 gm/dL (11.4-16.0); Lymphocytes # (A) 0.4 k/uL (1.0-4.8); Lymphocytes % (A) 6 %; MCH 29.6 pg (25.0-35.0); MCHC 32.4 g/dL (31.0-37.0); MCV 91.4 fL (80.0-100.0); Mean Platelet Volume 8.3; Monocytes # (A) 0.3 k/uL (0-1.0); Monocytes % (A) 4 %; Neutrophils # (A) 5.7 k/uL (1.3-7.7); Neutrophils % (A) 89 %; Platelet Count 305 k/uL (150-450); RBC 3.95 m/uL (3.80-5.40); RDW 13.3 % (11.5-15.5); WBC 6.4 k/uL (3.8-10.6)
[2023-11-15 02:34] LABS: African American GFR (CKD) >90 (>60 ml/min/1.73 sqM); Anion Gap 5 mmol/L; Blood Urea Nitrogen 12 mg/dL (7-17); Calcium 8.9 mg/dL (8.4-10.2); Carbon Dioxide 28 mmol/L (22-30); Chloride 101 mmol/L (98-107); Glucose 200 mg/dL (74-99); Magnesium 1.7 mg/dL (1.6-2.3); Non-African American GFR(CKD) >90 (>60 ml/min/1.73 sqM); Potassium 3.9 mmol/L (3.5-5.1); Sodium 134 mmol/L (137-145)
--- NOTE | 2023-11-15 03:26 | P.CNPUL ---
History of Present Illness Consult date: 11/15/23 Requesting physician: Moisés Miranda Reason for consult: COPD Chief complaint: Worsening shortness of breath x 1 month History of present illness: Patient is a 63-year-old white female with past medical history significant for COPD, former tobacco smoker, hyperlipidemia, lupus, and chronic back pain. She presented to the emergency room back on 11/13/2023 with a chief complaint of progressively worsening shortness of breath since the beginning of the month. She states that her COPD has been more active since mari COVID June,. She normally utilizes a combination of Symbicort inhaler, albuterol nebs, and as needed albuterol inhaler. She also has oxygen at home available if needed, however, does not routinely use it. She no longer smokes cigarettes, quitting about 8 years ago. Her primary care provider is Dr. Rowan. She just recently had a visit with her PCP on Wednesday, reportedly diagnosed with bilateral pneumonia, and treated outpatient with Levaquin. On presentation to the emergency department, she was apparently severely short of breath and initially placed on BiPAP. She did have a previous ABG showing a PaO2 of 137, pCO2 of 50, pH of 7.34. She is currently sitting up in bed, on 4 L/min nasal cannula, in no acute distress at the moment. Her is at the bedside and on bedside recliner. She states that over the last month she has been progressively more short of breath. Also, endorses chest tightness and wheezing. Denies any significant coughing or sputum production or fevers. Denies sick contacts. No chest pain, syncopal events, lower extremity swelling. Chest x-ray on admission did not show any focal infiltrates or evidence of pneumonia. Hyperinflation and chronic interstitial changes, consistent with COPD. CBC on admission was unremarkable. No leukocytosis. CMP also unremarkable. Troponin 0.019. EKG shows sinus tachycardia, without any obvious acute ischemic changes. Hemodynamically stable at this time. Review of Systems REVIEW OF SYSTEMS: CONSTITUTIONAL: Denies any recent significant weight loss or weight gain. EYES: Denies change in vision. EARS, NOSE, MOUTH, THROAT: Denies headaches, denies sore throat. CARDIOVASCULAR: Denies chest pain, palpitations or syncopal episodes. RESPIRATORY: See HPI GASTROINTESTINAL: Denies change in appetite, abdominal pain, nausea and vomiting , or diarrhea GENITOURINARY: Denies hematuria, denies infections. MUSKULOSKELETAL: Denies pain, denies swelling. INTEGUMENTARY: Denies rash, denies eczema. NEUROLOGICAL: Denies recent memory loss, no recent seizure activity. PSYCHIATRIC: Denies anxiety, denies depression. HEMATOLOGIC/LYMPHATIC: Denies anemia, denies enlarged lymph node Past Medical History Past Medical History: Asthma, Fibromyalgia, Hyperlipidemia, Osteoarthritis (OA) Additional Past Medical History / Comment(s): CLUSTER HEADACHES, LUPUS, HX ULCERS, MEDTRONIC PAIN PUMP LEFT BUTTOCKS- chronic back pain, "complete cervical/lumbar fusion" History of Any Multi-Drug Resistant Organisms: None Reported Past Surgical History: Appendectomy, Back Surgery, Breast Surgery Additional Past Surgical History / Comment(s): LUMBAR LAMINECTOMY X3, FUSION C-4 AND C-5, MEDTRONIC PAIN PUMP. Benign stereotactic core bx. right breast 2003, benign u/s core bx. right breast 2003. Past Anesthesia/Blood Transfusion Reactions: No Reported Reaction Past Psychological History: No Psychological Hx Reported Smoking Status: Former smoker Past Alcohol Use History: None Reported Past Drug Use History: None Reported - Past Family History Mother Family Medical History: Deep Vein Thrombosis (DVT) Father Family Medical History: Cancer Additional Family Medical History / Comment(s): LUNG Medications and Allergies Home Medications Medication Instructions Recorded Confirmed Type Atorvastatin [Lipitor] 40 mg PO DAILY 04/10/14 11/13/23 History Metoclopramide [Reglan] 10 mg PO QID 04/10/14 11/13/23 History Pantoprazole Sodium [Protonix] 40 mg PO DAILY 04/10/14 11/13/23 History Albuterol Sulfate [Proair Hfa] 1 - 2 puff INHALATION RT-Q4H PRN 01/22/22 11/13/23 History Butalb/Acetaminophen/Caffeine 1 cap PO Q4HR PRN 01/22/22 11/13/23 History [Fioricet 50-300-40 mg Capsule] Ipratropium-Albuterol Nebulize 3 ml INHALATION RT-TID PRN 01/22/22 11/13/23 History [Duoneb 0.5 mg-3 mg/3 ml Soln] methocarbamoL [Robaxin-750] 750 mg PO QID 01/22/22 11/13/23 History Amitriptyline HCl [Elavil] 75 mg PO HS PRN 06/08/23 11/13/23 History Budesonide/Formoterol Fumarate 2 puff INHALATION RT-BID 06/08/23 11/13/23 History [Breyna 160-4.5 Mcg Inhaler] Gabapentin 600 mg PO BID 06/08/23 11/13/23 History oxyCODONE HCL [oxyCODONE HCL (IR)] 20 mg PO QID 06/08/23 11/13/23 History LORazepam [Ativan] 1 tab PO DAILY PRN 11/13/23 11/13/23 History Pantoprazole [Protonix] 40 mg PO DAILY PRN 11/13/23 11/13/23 History Amoxic-Pot Clav 875-125Mg 1 each PO Q12HR #6 tab 11/15/23 Rx [Augmentin 875-125] predniSONE [Deltasone] 40 mg PO DAILY #6 tab 11/15/23 Rx Allergies Allergy/AdvReac Type Severity Reaction Status Date / Time erythromycin base Allergy Abdominal Verified 11/13/23 10:07 Pain Physical Exam Vitals: Vital Signs Temp Pulse Pulse Resp BP BP Pulse Ox 11/14/23 20:30 100 11/14/23 20:19 91 11/14/23 16:00 97.9 F 96 24 151/91 95 11/14/23 15:28 90 11/14/23 15:07 96 11/14/23 12:00 98.6 F 108 H 22 165/92 95 11/14/23 11:33 94 11/14/23 11:24 98 11/14/23 08:00 97.9 F 111 H 22 134/104 92 L 11/14/23 07:42 100 11/14/23 07:32 96 11/14/23 06:12 95 20 150/85 97 11/14/23 03:53 84 18 130/68 97 Intake and Output 11/14/23 11/14/23 11/15/23 14:59 22:59 06:59 Other: # Voids 1 GENERAL EXAM: Alert, 63-year-old white female, comfortable in no apparent distress. HEAD: Normocephalic and atraumatic EYES: Normal reaction of pupils, equal size. NOSE: Clear with pink turbinates. THROAT: No erythema or exudates. NECK: No masses, no JVD. CHEST: No chest wall deformity. LUNGS: Equal air entry with mild expiratory wheezes heard bilaterally and throughout. On 4 L/min nasal cannula. No conversational dyspnea or accessory muscle use while at rest CVS: S1 and S2 normal with no audible murmur, regular rhythm. No extra heart sounds ABDOMEN: No hepatosplenomegaly, active bowel sounds, no guarding or rigidity. SPINE: No scoliosis or deformity SKIN: No rashes CENTRAL NERVOUS SYSTEM: No focal deficits, tone is normal in all 4 extremities. EXTREMITIES: There is no peripheral edema, clubbing, or cyanosis. Peripheral pulses are intact. Results - Laboratory Findings CBC and BMP: 11/15/23 02:07 11/15/23 02:07 ABG ABG pH 7.34 (7.35-7.45) L 11/13/23 10:24 ABG pCO2 50 mmHg (35-45) H 11/13/23 10:24 ABG pO2 137 mmHg (83-108) H 11/13/23 10:24 ABG O2 Saturation 99.1 % (94-97) H 11/13/23 10:24 PT/INR, D-dimer PT 10.6 sec (10.0-12.5) 11/13/23 10:10 INR 1.0 (<1.2) 11/13/23 10:10 Abnormal lab findings: Abnormal Labs 11/13/23 11/13/23 11/13/23 10:10 10:10 10:10 Neutrophils # 8.7 H Lymphocytes # 0.6 L APTT 21.5 L ABG pH ABG pCO2 ABG pO2 ABG HCO3 ABG Total CO2 ABG O2 Saturation Creatinine 0.44 L Glucose 142 H Magnesium 1.5 L AST 37 H 11/13/23 10:24 Neutrophils # Lymphocytes # APTT ABG pH 7.34 L ABG pCO2 50 H ABG pO2 137 H ABG HCO3 27 H ABG Total CO2 28 H ABG O2 Saturation 99.1 H Creatinine Glucose Magnesium AST - Diagnostic Findings Chest x-ray: image reviewed Assessment and Plan Assessment: Suspected acute COPD exacerbation, chest x-ray on arrival does not show any focal infiltrates or evidence of pneumonia. Chronic changes consistent with COPD noted. Acute on chronic hypoxemic and hypercapnic respiratory failure, secondary to above Recent COVID-19 infection History of chronic pain History of GERD History of hyperlipidemia Former tobacco dependence, reportedly quitting smoking 8 years ago Plan: Patient's medications, labs, chest x-ray were reviewed BiPAP is on standby, continue supplemental oxygen, and wean FiO2 as tolerated to maintain oxygen saturation of 92% or greater No signs of CO2 narcosis Emprically receiving Augmentin Continue combination of Symbicort inhaler, bronchodilators, and IV Solu-Medrol Protonix for GI prophylaxis Will continue to follow I have personally seen and examined the patient, performed the documentation and the assessment and plan as written. Number of minutes spent on the visit:20 This is a joint evaluation close on the number the nurse practitioner. The patient is known to have advanced COPD. She has not seen pulmonology in the past. Based on pulmonary functions and FEV1 is not known. The patient is hospitalized for an acute COPD exacerbation. She has has been maintained on Symbicort on outpatient basis and this was switched to Breyna which she thinks is not working as good as Symbicort. She is currently on bronchodilators. She is currently on steroids. Chest x-ray is consistent with COPD. She is an ex- smoker. Will optimize her COPD and will continue to follow. No other changes from the pulmonary standpoint. Continue Augmentin. Continue the current bronchodilator regimen. Will follow. Time with Patient: Greater than 30
[2023-11-15 06:09] LABS: Glucose,Whole Blood 110 mg/dL (70-110)
[2023-11-15] MEDS: LORazepam 1 MG/0.5 ML VIAL IV ONE (06:17)
--- NOTE | 2023-11-15 08:52 | P.PN ---
Subjective Progress Note Date: 11/15/23 No new complaints today. Pt saturating well on 4L NC. Likely plan for discharge today/tomorrow, pending pulm clearance. Gen: in no apparent distress, resting comfortably in bed Eyes: PERRL, no scleral injection or icterus HENT: normocephalic, atraumatic, good hearing acuity, moist mucous membranes Neck: no tracheal deviation, full range of motion Resp: good air exchange, breathing comfortably with no accessory muscle use, no tactile fremitus CVS: good distal perfusion x 4, no pitting edema GI: soft, NTTP, ND, no hepatosplenomegaly : no suprapubic tenderness, no CVAT, gonzales catheter not present MSK: no clubbing, no cyanosis, no noted contractures of extremities Skin: no noted rashes, petechiae; temperature of skin is appropriate Neuro: moving all extremities without signs of weakness, CN II-XII intact Psych: cooperative, euthymic mood, insight and judgment intact Hospital Course: 63-year-old woman with a history of COPD/asthma, hyperlipidemia, GERD, chronic pain presented for evaluation of dyspnea. In the emergency room, patient was afebrile, 187/96, heart rate 133, respiratory rate was 42. Patient was started on BiPAP with FiO2 of 40%, PEEP of 5 and improved to 96% while her heart rates improved to 116. CBC was unremarkable. Basic metabolic panel is unremarkable. Liver function test were unremarkable. Troponins 0.019. ABG showed pH of 7.34, pCO2 of 50, pO2 of 137. Chest x-ray showed hyperinflated lungs with clear parenchyma bilaterally. EKG demonstrated sinus tachycardia with right axis deviation. Patient was started on standing nebulizers, steroids, Augmentin for COPD exacerbation. Chest x-ray did not show pneumonia, however, patient qualified for antibiotics based on production of yellowish sputum during the course of her illness. Pulmonology consulted and facilitated management of this patient. Patient will follow-up with both pulmonology and primary care physician. She will be discharged home with a total 5-day course of antibiotics, steroids. Assessment/plan: Acute on chronic hypoxemic respiratory failure with hypercarbia COPD exacerbation -Patient admitted as an inpatient with telemetry -Pulmonology consulted -Oxygen as needed -DuoNebs -Steroids -Antibiotics with augmentin BID Chronic pain Hyperlipidemia GERD -Home medications reviewed and reconciled Objective - Vital Signs Vital signs: Vital Signs Temp 97.3 F L 11/15/23 03:30 Pulse 98 11/15/23 08:31 Resp 22 11/15/23 08:31 BP 158/92 11/15/23 08:31 Pulse Ox 97 11/15/23 08:31 FiO2 40 11/13/23 15:05 Intake & Output 11/14/23 11/15/23 11/15/23 18:59 06:59 18:59 Intake Total 40 Balance 40 Weight 66.224 kg Intake: IV 40 Invasive Line 1 20 Invasive Line 2 20 Other: Voiding Method Bedside Commode # Voids 1 0 # Bowel Movements 0 - Labs CBC & Chem 7: 11/15/23 02:07 11/15/23 02:07 Labs: Abnormal Lab Results - Last 24 Hours (Table) 11/15/23 11/15/23 Range/Units 02:07 02:07 Lymphocytes # 0.4 L (1.0-4.8) k/uL Sodium 134 L (137-145) mmol/L Glucose 200 H (74-99) mg/dL Microbiology - Last 24 Hours (Table) 11/13/23 10:37 Blood Culture - Preliminary Blood 11/13/23 10:30 Blood Culture - Preliminary Blood
[2023-11-15 11:11] LABS: Glucose,Whole Blood 149 mg/dL (70-110)
[2023-11-15 16:24] LABS: Glucose,Whole Blood 161 mg/dL (70-110)
[2023-11-15 20:27] LABS: Glucose,Whole Blood 162 mg/dL (70-110)
[2023-11-16 06:03] LABS: Glucose,Whole Blood 120 mg/dL (70-110)
[2023-11-16 10:00] LABS: Basophils % (A) 0 %; Eosinophils # (A) 0.1 k/uL (0-0.7); Eosinophils % (A) 1 %; HGB 12.7 gm/dL (11.4-16.0); Lymphocytes # (A) 0.4 k/uL (1.0-4.8); Lymphocytes % (A) 5 %; MCH 29.2 pg (25.0-35.0); MCHC 31.7 g/dL (31.0-37.0); MCV 92.2 fL (80.0-100.0); Mean Platelet Volume 7.1; Monocytes # (A) 0.2 k/uL (0-1.0); Monocytes % (A) 3 %; Neutrophils % (A) 90 %; Platelet Count 379 k/uL (150-450); RBC 4.34 m/uL (3.80-5.40); RDW 13.3 % (11.5-15.5); WBC 7.8 k/uL (3.8-10.6)
[2023-11-16 10:10] LABS: African American GFR (CKD) >90 (>60 ml/min/1.73 sqM); Anion Gap 2 mmol/L; Blood Urea Nitrogen 14 mg/dL (7-17); Calcium 9.5 mg/dL (8.4-10.2); Carbon Dioxide 33 mmol/L (22-30); Chloride 101 mmol/L (98-107); Glucose 143 mg/dL (74-99); Magnesium 1.8 mg/dL (1.6-2.3); Non-African American GFR(CKD) >90 (>60 ml/min/1.73 sqM); Sodium 136 mmol/L (137-145)
--- NOTE | 2023-11-16 10:19 | P.PN ---
Subjective Progress Note Date: 11/16/23 No new complaints today. Pt saturating well on 2L NC. Likely plan for discharge tomorrow, pending pulm clearance. Gen: in no apparent distress, resting comfortably in bed Eyes: PERRL, no scleral injection or icterus HENT: normocephalic, atraumatic, good hearing acuity, moist mucous membranes Neck: no tracheal deviation, full range of motion Resp: good air exchange, breathing comfortably with no accessory muscle use, no tactile fremitus CVS: good distal perfusion x 4, no pitting edema GI: soft, NTTP, ND, no hepatosplenomegaly : no suprapubic tenderness, no CVAT, gonzales catheter not present MSK: no clubbing, no cyanosis, no noted contractures of extremities Skin: no noted rashes, petechiae; temperature of skin is appropriate Neuro: moving all extremities without signs of weakness, CN II-XII intact Psych: cooperative, euthymic mood, insight and judgment intact Hospital Course: 63-year-old woman with a history of COPD/asthma, hyperlipidemia, GERD, chronic pain presented for evaluation of dyspnea. In the emergency room, patient was afebrile, 187/96, heart rate 133, respiratory rate was 42. Patient was started on BiPAP with FiO2 of 40%, PEEP of 5 and improved to 96% while her heart rates improved to 116. CBC was unremarkable. Basic metabolic panel is unremarkable. Liver function test were unremarkable. Troponins 0.019. ABG showed pH of 7.34, pCO2 of 50, pO2 of 137. Chest x-ray showed hyperinflated lungs with clear parenchyma bilaterally. EKG demonstrated sinus tachycardia with right axis deviation. Patient was started on standing nebulizers, steroids, Augmentin for COPD exacerbation. Chest x-ray did not show pneumonia, however, patient qualified for antibiotics based on production of yellowish sputum during the course of her illness. Pulmonology consulted and facilitated management of this patient. Patient will follow-up with both pulmonology and primary care khris ogden. She will be discharged home with a total 5-day course of antibiotics, steroids. Assessment/plan: Acute on chronic hypoxemic respiratory failure with hypercarbia COPD exacerbation -Patient admitted as an inpatient with telemetry -Pulmonology consulted -Oxygen as needed -DuoNebs -Steroids -Antibiotics with augmentin BID Chronic pain Hyperlipidemia GERD -Home medications reviewed and reconciled Objective - Vital Signs Vital signs: Vital Signs Temp 98.2 F 11/16/23 08:17 Pulse 93 11/16/23 08:20 Resp 18 11/16/23 08:20 BP 153/72 11/16/23 08:17 Pulse Ox 94 L 11/16/23 08:17 FiO2 40 11/13/23 15:05 Intake & Output 11/15/23 11/16/23 11/16/23 18:59 06:59 18:59 Intake Total 874 560 10 Output Total 400 Balance 474 560 10 Intake: IV 60 20 10 Invasive Line 1 30 Invasive Line 2 30 Invasive Line 3 20 10 Oral 814 540 Output: Urine 400 Other: Voiding Method Bedside Commode Bedside Commode Bedside Commode # Voids 1 1 - Labs CBC & Chem 7: 11/16/23 09:23 11/16/23 09:23 Labs: Abnormal Lab Results - Last 24 Hours (Table) 11/15/23 11/15/23 11/15/23 Range/Units 11:10 16:21 20:25 Lymphocytes # (1.0-4.8) k/uL Sodium (137-145) mmol/L Carbon Dioxide (22-30) mmol/L Creatinine (0.52-1.04) mg/dL Glucose (74-99) mg/dL POC Glucose (mg/dL) 149 H 161 H 162 H (70-110) mg/dL 11/16/23 11/16/23 11/16/23 Range/Units 06:01 09:23 09:23 Lymphocytes # 0.4 L (1.0-4.8) k/uL Sodium 136 L (137-145) mmol/L Carbon Dioxide 33 H (22-30) mmol/L Creatinine 0.41 L (0.52-1.04) mg/dL Glucose 143 H (74-99) mg/dL POC Glucose (mg/dL) 120 H (70-110) mg/dL Microbiology - Last 24 Hours (Table) 11/13/23 10:37 Blood Culture - Preliminary Blood 11/13/23 10:30 Blood Culture - Preliminary Blood
[2023-11-16 11:12] LABS: Glucose,Whole Blood 141 mg/dL (70-110)
--- NOTE | 2023-11-16 12:25 | P.PN ---
Subjective Progress Note Date: 11/16/23 Patient is a 63-year-old white female with past medical history significant for COPD, former tobacco smoker, hyperlipidemia, lupus, and chronic back pain. She presented to the emergency room back on 11/13/2023 with a chief complaint of progressively worsening shortness of breath since the beginning of the month. She states that her COPD has been more active since mari COVID June,. She normally utilizes a combination of Symbicort inhaler, albuterol nebs, and as needed albuterol inhaler. She also has oxygen at home available if needed, however, does not routinely use it. She no longer smokes cigarettes, quitting about 8 years ago. Her primary care provider is Dr. Rowan. She just recently had a visit with her PCP on Wednesday, reportedly diagnosed with bilateral pneumonia, and treated outpatient with Micah. On presentation to the emergency department, she was apparently severely short of breath and initially placed on BiPAP. She did have a previous ABG showing a PaO2 of 137, pCO2 of 50, pH of 7.34. She is currently sitting up in bed, on 4 L/min nasal cannula, in no acute distress at the moment. Her is at the bedside and on bedside recliner. She states that over the last month she has been progressively more short of breath. Also, endorses chest tightness and wheezing. Denies any significant coughing or sputum production or fevers. Denies sick contacts. No chest pain, syncopal events, lower extremity swelling. Chest x-ray on admission did not show any focal infiltrates or evidence of pneumonia. Hyperinflation and chronic interstitial changes, consistent with COPD. CBC on admission was unremarkable. No leukocytosis. CMP also unremarkable. Troponin 0.019. EKG shows sinus tachycardia, without any obvious acute ischemic changes. Hemodynamically stable at this time. 11/16/2023, the patient is being seen for a follow-up. The patient is feeling slightly improved compared to yesterday. Nevertheless, while ambulating, she gets short of breath and tachycardic and tachypneic. She is to require oxygen which is currently at 3 L nasal cannula. Noted her oxygen requirements were much better prior to the current hospitalization. Otherwise, the patient has no specific complaints. She is free of any chest pain patient with Augmentin. She is on Symbicort as maintenance and DuoNeb nebulized treatments [id number] and she is also on IV Solu-Medrol 60 mg every 6 hours. Labs showed WBC count 7.8 hemoglobin 12.7, BUN is 14 with a creatinine of 0.4 and sodium levels at 134. No other significant events otherwise for now. Objective - Vital Signs Vital signs: Vital Signs Temp 98.2 F 11/16/23 08:17 Pulse 93 11/16/23 08:20 Resp 18 11/16/23 08:20 BP 153/72 11/16/23 08:17 Pulse Ox 94 L 11/16/23 08:17 FiO2 40 11/13/23 15:05 Intake & Output 11/15/23 11/16/23 11/16/23 18:59 06:59 18:59 Intake Total 874 560 10 Output Total 400 Balance 474 560 10 Intake: IV 60 20 10 Invasive Line 1 30 Invasive Line 2 30 Invasive Line 3 20 10 Oral 814 540 Output: Urine 400 Other: Voiding Method Bedside Commode Bedside Commode Bedside Commode # Voids 1 1 - Exam GENERAL EXAM: Alert, 63-year-old white female, comfortable in no apparent distress. HEAD: Normocephalic and atraumatic EYES: Normal reaction of pupils, equal size. NOSE: Clear with pink turbinates. THROAT: No erythema or exudates. NECK: No masses, no JVD. CHEST: No chest wall deformity. LUNGS: Equal air entry with mild expiratory wheezes heard bilaterally and throughout. On 4 L/min nasal cannula. No conversational dyspnea or accessory muscle use while at rest CVS: S1 and S2 normal with no audible murmur, regular rhythm. No extra heart sounds ABDOMEN: No hepatosplenomegaly, active bowel sounds, no guarding or rigidity. SPINE: No scoliosis or deformity SKIN: No rashes CENTRAL NERVOUS SYSTEM: No focal deficits, tone is normal in all 4 extremities. EXTREMITIES: There is no peripheral edema, clubbing, or cyanosis. Peripheral pulses are intact. - Labs CBC & Chem 7: 11/16/23 09:23 11/16/23 09:23 Labs: Abnormal Lab Results - Last 24 Hours (Table) 11/15/23 11/15/23 11/15/23 Range/Units 11:10 16:21 20:25 POC Glucose (mg/dL) 149 H 161 H 162 H (70-110) mg/dL 11/16/23 Range/Units 06:01 POC Glucose (mg/dL) 120 H (70-110) mg/dL Microbiology - Last 24 Hours (Table) 11/13/23 10:37 Blood Culture - Preliminary Blood 11/13/23 10:30 Blood Culture - Preliminary Blood Assessment and Plan Assessment: Acute COPD exacerbation, chest x-ray on arrival does not show any focal infiltrates or evidence of pneumonia. Chronic changes consistent with COPD noted. The patient continues to be short of breath, and hypoxic requiring 3 Suboxone by nasal cannula. Acute on chronic hypoxemic and hypercapnic respiratory failure, secondary to above, currently on 3 L of O2 nasal cannula Recent COVID-19 infection History of chronic pain History of GERD History of hyperlipidemia Former tobacco dependence, reportedly quitting smoking 8 years ago Plan: Titrate FiO2 to maintain saturation above 90% Emprically receiving Augmentin Continue combination of Symbicort inhaler, bronchodilators, and IV Solu-Medrol at a dose of 60 mg IV every 6 hours Increase mobility and ambulation Protonix for GI prophylaxis Will continue to follow
[2023-11-16 16:46] LABS: Glucose,Whole Blood 172 mg/dL (70-110)
[2023-11-16 20:09] LABS: Glucose,Whole Blood 182 mg/dL (70-110)
[2023-11-17 03:48] VITALS: TEMP 98.1
[2023-11-17 06:21] LABS: Glucose,Whole Blood 132 mg/dL (70-110)
[2023-11-17 08:07] LABS: Basophils % (A) 0 %; Eosinophils % (A) 0 %; HCT 38.3 % (34.0-46.0); HGB 12.7 gm/dL (11.4-16.0); Lymphocytes # (A) 0.6 k/uL (1.0-4.8); Lymphocytes % (A) 7 %; MCH 29.8 pg (25.0-35.0); MCV 90.1 fL (80.0-100.0); Mean Platelet Volume 7.2; Monocytes # (A) 0.5 k/uL (0-1.0); Monocytes % (A) 5 %; Neutrophils # (A) 7.4 k/uL (1.3-7.7); Neutrophils % (A) 86 %; Platelet Count 452 k/uL (150-450); RBC 4.25 m/uL (3.80-5.40); RDW 13.5 % (11.5-15.5); WBC 8.6 k/uL (3.8-10.6)
[2023-11-17 08:20] LABS: African American GFR (CKD) >90 (>60 ml/min/1.73 sqM); Anion Gap 2 mmol/L; Blood Urea Nitrogen 16 mg/dL (7-17); Calcium 9.4 mg/dL (8.4-10.2); Carbon Dioxide 35 mmol/L (22-30); Chloride 99 mmol/L (98-107); Glucose 135 mg/dL (74-99); Magnesium 1.8 mg/dL (1.6-2.3); Non-African American GFR(CKD) >90 (>60 ml/min/1.73 sqM); Potassium 4.3 mmol/L (3.5-5.1); Sodium 136 mmol/L (137-145)
[2023-11-17 08:33] VITALS: BP 168/85; RESP 18
--- NOTE | 2023-11-17 10:45 | P.DS ---
Providers Date of admission: 11/13/23 11:32 Expected date of discharge: 11/17/23 Attending physician: Arjun Garcia MD Consults: 11/14/23 12:25 Consult Physician Routine Consulting Provider: Johan Odom Consult Reason/Comments: copd exacerbation, initially requiring bipap Do you want consulting provider notified?: Yes Primary care physician: [facility] Course: Acute on chronic hypoxemic respiratory failure with hypercarbia COPD exacerbation Chronic pain Hyperlipidemia GERD Gen: in no apparent distress, resting comfortably in bed Eyes: PERRL, no scleral injection or icterus HENT: normocephalic, atraumatic, good hearing acuity, moist mucous membranes Neck: no tracheal deviation, full range of motion Resp: good air exchange, breathing comfortably with no accessory muscle use, no tactile fremitus CVS: good distal perfusion x 4, no pitting edema GI: soft, NTTP, ND, no hepatosplenomegaly : no suprapubic tenderness, no CVAT, gonzales catheter not present MSK: no clubbing, no cyanosis, no noted contractures of extremities Skin: no noted rashes, petechiae; temperature of skin is appropriate Neuro: moving all extremities without signs of weakness, CN II-XII intact Psych: cooperative, euthymic mood, insight and judgment intact Hospital Course: 63-year-old woman with a history of COPD/asthma, hyperlipidemia, GERD, chronic pain presented for evaluation of dyspnea. In the emergency room, patient was afebrile, 187/96, heart rate 133, respiratory rate was 42. Patient was started on BiPAP with FiO2 of 40%, PEEP of 5 and improved to 96% while her heart rates improved to 116. CBC was unremarkable. Basic metabolic panel is unremarkable. Liver function test were unremarkable. Troponins 0.019. ABG showed pH of 7.34, pCO2 of 50, pO2 of 137. Chest x-ray showed hyperinflated lungs with clear parenchyma bilaterally. EKG demonstrated sinus tachycardia with right axis deviation. Patient was started on standing nebulizers, steroids, Augmentin for COPD exacerbation. Chest x-ray did not show pneumonia, however, patient qualified for antibiotics based on production of yellowish sputum during the course of her illness. Pulmonology consulted and facilitated management of this patient. Patient will follow-up with both pulmonology and primary care physician. She will be discharged home with a course of antibiotics, steroids to complete treatment for COPD. Started on spiriva per pulmonology recs. Also discharged with acapella valve. I spent 38 min coordinating this discharge Plan - Discharge Summary Discharge Rx Participant: No New Discharge Prescriptions: New Tiotropium 2.5 Mcg/Puff [Spiriva Respimat 2.5 Mcg] 1 puff INHALATION DAILY #1 each hydroCHLOROthiazide [Hydrodiuril] 12.5 mg PO DAILY #30 cap Amoxic-Pot Clav 875-125Mg [Augmentin 875-125] 1 each PO Q12HR #6 tab predniSONE [Deltasone] 40 mg PO DAILY #6 tab Continue Atorvastatin [Lipitor] 40 mg PO DAILY Pantoprazole Sodium [Protonix] 40 mg PO DAILY Metoclopramide [Reglan] 10 mg PO QID methocarbamoL [Robaxin-750] 750 mg PO QID LORazepam [Ativan] 1 tab PO DAILY PRN PRN Reason: Anxiety Albuterol Sulfate [Proair Hfa] 1 - 2 puff INHALATION RT-Q4H PRN PRN Reason: Shortness Of Breath Butalb/Acetaminophen/Caffeine [Fioricet 50-300-40 mg Capsule] 1 cap PO Q4HR PRN PRN Reason: Migraine Headache Ipratropium-Albuterol Nebulize [Duoneb 0.5 mg-3 mg/3 ml Soln] 3 ml INHALATION RT-TID PRN PRN Reason: Shortness Of Breath oxyCODONE HCL [oxyCODONE HCL (IR)] 20 mg PO QID Gabapentin 600 mg PO BID Budesonide/Formoterol Fumarate [Breyna 160-4.5 Mcg Inhaler] 2 puff INHALATION RT-BID Amitriptyline HCl [Elavil] 75 mg PO HS PRN PRN Reason: Insomnia Pantoprazole [Protonix] 40 mg PO DAILY PRN PRN Reason: Heartburn Discontinued predniSONE See Taper PO DAILY Levofloxacin [Levaquin] 500 mg PO DAILY 3 Days #3 tab Discharge Medication List Atorvastatin [Lipitor] 40 mg PO DAILY 04/10/14 [History] Metoclopramide [Reglan] 10 mg PO QID 04/10/14 [History] Pantoprazole Sodium [Protonix] 40 mg PO DAILY 04/10/14 [History] Albuterol Sulfate [Proair Hfa] 1 - 2 puff INHALATION RT-Q4H PRN 01/22/22 [History] Butalb/Acetaminophen/Caffeine [Fioricet 50-300-40 mg Capsule] 1 cap PO Q4HR PRN 01/22/22 [History] Ipratropium-Albuterol Nebulize [Duoneb 0.5 mg-3 mg/3 ml Soln] 3 ml INHALATION RT-TID PRN 01/22/22 [History] methocarbamoL [Robaxin-750] 750 mg PO QID 01/22/22 [History] Amitriptyline HCl [Elavil] 75 mg PO HS PRN 06/08/23 [History] Budesonide/Formoterol Fumarate [Breyna 160-4.5 Mcg Inhaler] 2 puff INHALATION RT-BID 06/08/23 [History] Gabapentin 600 mg PO BID 06/08/23 [History] oxyCODONE HCL [oxyCODONE HCL (IR)] 20 mg PO QID 06/08/23 [History] LORazepam [Ativan] 1 tab PO DAILY PRN 11/13/23 [History] Pantoprazole [Protonix] 40 mg PO DAILY PRN 11/13/23 [History] Amoxic-Pot Clav 875-125Mg [Augmentin 875-125] 1 each PO Q12HR #6 tab 11/15/23 [Rx] predniSONE [Deltasone] 40 mg PO DAILY #6 tab 11/15/23 [Rx] Tiotropium 2.5 Mcg/Puff [Spiriva Respimat 2.5 Mcg] 1 puff INHALATION DAILY #1 each 11/17/23 [Rx] hydroCHLOROthiazide [Hydrodiuril] 12.5 mg PO DAILY #30 cap 11/17/23 [Rx] Follow up Appointment(s)/Referral(s): Maycol Rowan DO [Primary Care Provider] - 11/23/23 2:20 pm Marisa Bustillo MD [STAFF PHYSICIAN] - 11/30/23 9:45 am
[2023-11-17 11:35] VITALS: PULSE 102
--- NOTE | 2023-11-17 14:23 | P.PN ---
Subjective Progress Note Date: 11/17/23 Patient is a 63-year-old white female with past medical history significant for COPD, former tobacco smoker, hyperlipidemia, lupus, and chronic back pain. She presented to the emergency room back on 11/13/2023 with a chief complaint of progressively worsening shortness of breath since the beginning of the month. She states that her COPD has been more active since mari COVID June,. She normally utilizes a combination of Symbicort inhaler, albuterol nebs, and as needed albuterol inhaler. She also has oxygen at home available if needed, however, does not routinely use it. She no longer smokes cigarettes, quitting about 8 years ago. Her primary care provider is Dr. Rowan. She just recently had a visit with her PCP on Wednesday, reportedly diagnosed with bilateral pneumonia, and treated outpatient with Micah. On presentation to the emergency department, she was apparently severely short of breath and initially placed on BiPAP. She did have a previous ABG showing a PaO2 of 137, pCO2 of 50, pH of 7.34. She is currently sitting up in bed, on 4 L/min nasal cannula, in no acute distress at the moment. Her is at the bedside and on bedside recliner. She states that over the last month she has been progressively more short of breath. Also, endorses chest tightness and wheezing. Denies any significant coughing or sputum production or fevers. Denies sick contacts. No chest pain, syncopal events, lower extremity swelling. Chest x-ray on admission did not show any focal infiltrates or evidence of pneumonia. Hyperinflation and chronic interstitial changes, consistent with COPD. CBC on admission was unremarkable. No leukocytosis. CMP also unremarkable. Troponin 0.019. EKG shows sinus tachycardia, without any obvious acute ischemic changes. Hemodynamically stable at this time. 11/16/2023, the patient is being seen for a follow-up. The patient is feeling slightly improved compared to yesterday. Nevertheless, while ambulating, she gets short of breath and tachycardic and tachypneic. She is to require oxygen which is currently at 3 L nasal cannula. Noted her oxygen requirements were much better prior to the current hospitalization. Otherwise, the patient has no specific complaints. She is free of any chest pain patient with Augmentin. She is on Symbicort as maintenance and DuoNeb nebulized treatments [id number] and she is also on IV Solu-Medrol 60 mg every 6 hours. Labs showed WBC count 7.8 hemoglobin 12.7, BUN is 14 with a creatinine of 0.4 and sodium levels at 134. No other significant events otherwise for now. 11/17/2023, the patient is being seen for a follow-up. Patient is doing well. Overall respiratory status improved and the patient is overall respiratory status is stable for now. She remains on oxygen and she remains on 3 L of oxygen by nasal cannula. She remains on IV Solu-Medrol 60 mg every 6 hours. Blood work from today shows a white cell count of 8 hemoglobin of 12.7 and a platelet count of 452. BUN is 16 with a creatinine 0.5 and a sodium level is 136. No other new complaints for now. Objective - Vital Signs Vital signs: Vital Signs Temp 98.1 F 11/17/23 08:00 Pulse 104 H 11/17/23 08:07 Resp 18 11/17/23 08:00 BP 168/85 11/17/23 08:00 Pulse Ox 94 L 11/17/23 08:00 FiO2 40 11/13/23 15:05 Intake & Output 11/16/23 11/17/23 11/17/23 18:59 06:59 18:59 Intake Total 1280 270 Balance 1280 270 Intake: IV 20 Invasive Line 3 20 Oral 1260 270 Other: Voiding Method Bedside Commode Bedside Commode # Voids 5 2 2 # Bowel Movements 1 - Exam GENERAL EXAM: Alert, 63-year-old white female, comfortable in no apparent distress. HEAD: Normocephalic and atraumatic EYES: Normal reaction of pupils, equal size. NOSE: Clear with pink turbinates. THROAT: No erythema or exudates. NECK: No masses, no JVD. CHEST: No chest wall deformity. LUNGS: Equal air entry with mild expiratory wheezes heard bilaterally and throughout. On 4 L/min nasal cannula. No conversational dyspnea or accessory m uscle use while at rest CVS: S1 and S2 normal with no audible murmur, regular rhythm. No extra heart sounds ABDOMEN: No hepatosplenomegaly, active bowel sounds, no guarding or rigidity. SPINE: No scoliosis or deformity SKIN: No rashes CENTRAL NERVOUS SYSTEM: No focal deficits, tone is normal in all 4 extremities. EXTREMITIES: There is no peripheral edema, clubbing, or cyanosis. Peripheral pulses are intact. - Labs CBC & Chem 7: 11/17/23 07:24 11/17/23 07:24 Labs: Abnormal Lab Results - Last 24 Hours (Table) 11/16/23 11/16/23 11/16/23 Range/Units 09:23 11:11 16:45 Plt Count (150-450) k/uL Lymphocytes # (1.0-4.8) k/uL Sodium 136 L (137-145) mmol/L Carbon Dioxide 33 H (22-30) mmol/L Creatinine 0.41 L (0.52-1.04) mg/dL Glucose 143 H (74-99) mg/dL POC Glucose (mg/dL) 141 H 172 H (70-110) mg/dL 11/16/23 11/17/23 11/17/23 Range/Units 20:07 06:19 07:24 Plt Count 452 H (150-450) k/uL Lymphocytes # 0.6 L (1.0-4.8) k/uL Sodium (137-145) mmol/L Carbon Dioxide (22-30) mmol/L Creatinine (0.52-1.04) mg/dL Glucose (74-99) mg/dL POC Glucose (mg/dL) 182 H 132 H (70-110) mg/dL 11/17/23 Range/Units 07:24 Plt Count (150-450) k/uL Lymphocytes # (1.0-4.8) k/uL Sodium 136 L (137-145) mmol/L Carbon Dioxide 35 H (22-30) mmol/L Creatinine (0.52-1.04) mg/dL Glucose 135 H (74-99) mg/dL POC Glucose (mg/dL) (70-110) mg/dL Microbiology - Last 24 Hours (Table) 11/13/23 10:37 Blood Culture - Preliminary Blood 11/13/23 10:30 Blood Culture - Preliminary Blood Assessment and Plan Assessment: Acute COPD exacerbation, chest x-ray on arrival does not show any focal infiltrates or evidence of pneumonia. Chronic changes consistent with COPD noted. The patient continues to be short of breath, and hypoxic requiring 3 liters by nasal cannula. Acute on chronic hypoxemic and hypercapnic respiratory failure, secondary to above, currently on 3 L of O2 nasal cannula Recent COVID-19 infection History of chronic pain History of GERD History of hyperlipidemia Former tobacco dependence, reportedly quitting smoking 8 years ago Plan: The patient to be discharged home today on oxygen at 3 L, Symbicort 2 puffs twice a day and Spiriva 1 elation a day along with albuterol nebulized treatmen ts [id number]. The patient will complete a prednisone burst taper and outpatient basis. Outpatient follow-up regarding her COPD. Monitor blood pressure and treat accordingly. This may be steroid-induced.
== END 2023-11-17 11:41 | disposition home or self-care (01) | DRG 189 ==
LOC: EC 09:58 → 3SCARD 11:32
PROVIDERS: ADMIT Student in an Organized Health Care Education/Training Program; ATTEND Student in an Organized Health Care Education/Training Program
PROC: 5A09357 Assistance with Respiratory Ventilation, Less than 24 Consecutive Hours, Continuous Positive Airway Pressure (ICD-10-PCS; principal; 2023-11-13)
DX: J96.21 Acute and chronic respiratory failure with hypoxia (principal); J44.1 Chronic obstructive pulmonary disease with (acute) exacerbation; J96.22 Acute and chronic respiratory failure with hypercapnia; K21.9 Gastro-esophageal reflux disease without esophagitis; J98.4 Other disorders of lung; E78.5 Hyperlipidemia, unspecified; E83.42 Hypomagnesemia; G89.29 Other chronic pain; M79.7 Fibromyalgia; M19.90 Unspecified osteoarthritis, unspecified site; G44.009 Cluster headache syndrome, unspecified, not intractable; J45.909 Unspecified asthma, uncomplicated; M54.9 Dorsalgia, unspecified; Z86.16 Personal history of COVID-19; Z87.01 Personal history of pneumonia (recurrent); Z79.899 Other long term (current) drug therapy; Z98.1 Arthrodesis status; Z87.891 Personal history of nicotine dependence; Z79.891 Long term (current) use of opiate analgesic; Z79.52 Long term (current) use of systemic steroids; Z88.1 Allergy status to other antibiotic agents
CPT/HCPCS: 36415; 36600; 71045; 80048; 80053; 82805; 83605; 83735; 84484; 85025; 85379; 85610; 85730; 87040; 87636; 93005; 94640; 94660; 94667; 94760; 96361; 96365; 96366; 96372; 96375; 96376; 99285

== ENCOUNTER → 2024-03-17 | Outpatient (CLI) | payer BC ==
[2024-03-18 01:52] LABS: Basophils # (A) 0.02 X 10*3/uL (0.00-0.10); Basophils % (A) 0.3 %; Eosinophils # (A) 0.03 X 10*3/uL (0.04-0.35); Eosinophils % (A) 0.5 %; HCT 39.6 % (37.2-46.3); Lymphocytes # (A) 0.49 X 10*3/uL (0.90-5.00); Lymphocytes % (A) 8.2 %; MCHC 32.8 g/dL (32.0-37.0); MCV 91.5 FL (80.0-97.0); Mean Platelet Volume 8.9 FL (9.5-12.2); Monocytes # (A) 0.17 X 10*3/uL (0.20-1.00); Monocytes % (A) 2.8 %; NRBC Per 100 WBC 0 X 10*3/uL (0.00-0.01); Neutrophils # (A) 5.27 X 10*3/uL (1.80-7.70); Platelet Count 424 X 10*3/uL (140-440); RBC 4.33 X 10*6/uL (4.10-5.20); RDW 12.8 % (11.5-14.5); WBC 5.99 X 10*3/uL (4.50-10.00)
[2024-03-18 02:55] LABS: T4, Free (Free Thyroxine) 1.26 ng/dL (0.80-1.80)
== END | disposition home or self-care (01) ==
LOC: LABWHC1 14:03
PROVIDERS: ATTEND Internal Medicine Critical Care Medicine
DX: R00.0 Tachycardia, unspecified (principal)
CPT/HCPCS: 36415; 84439; 84443; 85025

== ENCOUNTER 2024-04-20 02:50 | Inpatient (IN) | payer BC ==
[2024-04-20] MEDS: ALBUTEROL NEBULIZED 2.5 MG/3 ML INHALATION STA (03:06)
[2024-04-20] MEDS: IPRATROPIUM 0.5 MG/2.5 ML NEBU INHALATION STA (03:07)
[2024-04-20] MEDS: SODIUM CHLORIDE 0.9% 500 ML 500 ML IV STA (03:11)
[2024-04-20] MEDS: methylPREDNISolone SOD SUCCI 125 MG/2 ML VIAL IV STA (03:11)
[2024-04-20] MEDS: LORazepam 2 MG/ML INJ IV STA (03:12)
[2024-04-20] MEDS: MAGNESIUM SULFATE-D5W PMX 1 GM in DEXTROSE/WATER 1 100ML.BAG IVPB STA (03:16)
[2024-04-20] MEDS: ACETAMINOPHEN IV (For NPO) 1,000 MG in EMPTY BAG 1 BAG IVPB STA (03:32)
[2024-04-20 03:45] LABS: ALT 16 U/L (4-34); AST 21 U/L (14-36); African American GFR (CKD) >90 (>60 ml/min/1.73 sqM); Albumin 4.4 g/dL (3.5-5.0); Alkaline Phosphatase 67 U/L (38-126); Anion Gap 4 mmol/L; Blood Urea Nitrogen 12 mg/dL (7-17); Calcium 9.1 mg/dL (8.4-10.2); Carbon Dioxide 31 mmol/L (22-30); Chloride 98 mmol/L (98-107); Glucose 145 mg/dL (74-99); Magnesium 1.5 mg/dL (1.6-2.3); Non-African American GFR(CKD) >90 (>60 ml/min/1.73 sqM); Potassium 4.2 mmol/L (3.5-5.1); Sodium 133 mmol/L (137-145); Total Bilirubin 0.6 mg/dL (0.2-1.3)
[2024-04-20 03:51] LABS: INR 0.9 (<1.2); Partial Thromboplastin Time 21.9 sec (22.0-30.0); Prothrombin Time 10.5 sec (10.0-12.5)
[2024-04-20 04:01] LABS: Basophils % (A) 0 %; Eosinophils # (A) 0.1 k/uL (0-0.7); Eosinophils % (A) 1 %; HCT 37.4 % (34.0-46.0); HGB 12.3 gm/dL (11.4-16.0); Lymphocytes # (A) 0.8 k/uL (1.0-4.8); Lymphocytes % (A) 8 %; MCH 30.3 pg (25.0-35.0); MCV 91.6 fL (80.0-100.0); Monocytes # (A) 0.7 k/uL (0-1.0); Monocytes % (A) 6 %; Neutrophils # (A) 9.1 k/uL (1.3-7.7); Neutrophils % (A) 85 %; Platelet Count 400 k/uL (150-450); RBC 4.08 m/uL (3.80-5.40); RDW 13.5 % (11.5-15.5); WBC 10.7 k/uL (3.8-10.6)
--- NOTE | 2024-04-20 04:01 | XR ---
EXAM: XR Chest, 1 View CLINICAL HISTORY: ITS.REASON XR Reason: GRAZYNA TECHNIQUE: Frontal view of the chest. COMPARISON: No relevant prior studies available. FINDINGS: Lungs: No consolidation or mass. Increased interstitial opacity bilateral lower lobes. Pleural space: No acute findings. Heart: No cardiomegaly. Bones/joints: No acute findings. IMPRESSION: Increased interstitial opacity bilateral lower lobes.
[2024-04-20 04:10] LABS: VBG PH 7.36 (7.31-7.41)
[2024-04-20] MEDS ORDERED: IPRATROPIUM-ALBUTEROL 3 ML NEB INHALATION PRN (04:14)
[2024-04-20] MEDS ORDERED: NALOXONE 0.4 MG/ML 1 ML VIAL IVP PRN (04:14)
--- NOTE | 2024-04-20 04:14 | ED ---
General Adult HPI - General Chief complaint: Shortness of Breath Stated complaint: SOB Time Seen by Provider: 04/20/24 02:52 Source: patient, EMS, RN notes reviewed, old records reviewed Mode of arrival: EMS Limitations: no limitations - History of Present Illness Initial comments: 63-year-old female history of COPD presenting with increased cough and dyspnea over the past 3 days. Patient's symptoms significantly worsened this evening and states that they had to increase her home oxygen. Paramedics transported with 6 L of oxygen. Patient reports increased cough as well as diffuse bodyaches. No central radiating chest pain. No leg pain or swelling. Patient is noted to be febrile upon arrival. - Related Data Home Medications Medication Instructions Recorded Confirmed Atorvastatin [Lipitor] 40 mg PO DAILY 04/10/14 11/13/23 Metoclopramide [Reglan] 10 mg PO QID 04/10/14 11/13/23 Pantoprazole Sodium [Protonix] 40 mg PO DAILY 04/10/14 11/13/23 Albuterol Sulfate [Proair Hfa] 1 - 2 puff INHALATION RT-Q4H PRN 01/22/22 11/13/23 Butalb/Acetaminophen/Caffeine 1 cap PO Q4HR PRN 01/22/22 11/13/23 [Fioricet 50-300-40 mg Capsule] Ipratropium-Albuterol Nebulize 3 ml INHALATION RT-TID PRN 01/22/22 11/13/23 [Duoneb 0.5 mg-3 mg/3 ml Soln] methocarbamoL [Robaxin-750] 750 mg PO QID 01/22/22 11/13/23 Amitriptyline HCl [Elavil] 75 mg PO HS PRN 06/08/23 11/13/23 Budesonide/Formoterol Fumarate 2 puff INHALATION RT-BID 06/08/23 11/13/23 [Breyna 160-4.5 Mcg Inhaler] Gabapentin 600 mg PO BID 06/08/23 11/13/23 oxyCODONE HCL [oxyCODONE HCL (IR)] 20 mg PO QID 06/08/23 11/13/23 LORazepam [Ativan] 1 tab PO DAILY PRN 11/13/23 11/13/23 Pantoprazole [Protonix] 40 mg PO DAILY PRN 11/13/23 11/13/23 Previous Rx's Medication Instructions Recorded Amoxic-Pot Clav 875-125Mg 1 each PO Q12HR #6 tab 11/15/23 [Augmentin 875-125] predniSONE [Deltasone] 40 mg PO DAILY #6 tab 11/15/23 Tiotropium 2.5 Mcg/Puff [Spiriva 1 puff INHALATION DAILY #1 each 11/17/23 Respimat 2.5 Mcg] hydroCHLOROthiazide [Hydrodiuril] 12.5 mg PO DAILY #30 cap 11/17/23 Allergies Allergy/AdvReac Type Severity Reaction Status Date / Time erythromycin base Allergy Abdominal Verified 11/13/23 10:07 Pain Review of Systems ROS Statement: Those systems with pertinent positive or pertinent negative responses have been documented in the HPI. ROS Other: All systems not noted in ROS Statement are negative. Past Medical History Past Medical History: Asthma, Fibromyalgia, Hyperlipidemia, Osteoarthritis (OA) Additional Past Medical History / Comment(s): CLUSTER HEADACHES, LUPUS, HX ULCERS, MEDTRONIC PAIN PUMP LEFT BUTTOCKS- chronic back pain, "complete cervical/lumbar fusion" History of Any Multi-Drug Resistant Organisms: None Reported Past Surgical History: Appendectomy, Back Surgery, Breast Surgery Additional Past Surgical History / Comment(s): LUMBAR LAMINECTOMY X3, FUSION C-4 AND C-5, MEDTRONIC PAIN PUMP. Benign stereotactic core bx. right breast 2003, benign u/s core bx. right breast 2003. Past Anesthesia/Blood Transfusion Reactions: No Reported Reaction Past Psychological History: No Psychological Hx Reported Smoking Status: Former smoker Past Alcohol Use History: None Reported Past Drug Use History: None Reported - Past Family History Mother Family Medical History: Deep Vein Thrombosis (DVT) Father Family Medical History: Cancer Additional Family Medical History / Comment(s): LUNG General Exam Limitations: no limitations General appearance: alert, in distress Head exam: Present: atraumatic, normocephalic Eye exam: Present: normal appearance, PERRL ENT exam: Present: normal exam Neck exam: Present: normal inspection. Absent: tenderness, meningismus Respiratory exam: Present: respiratory distress, wheezes, rhonchi, accessory muscle use, decreased breath sounds Cardiovascular Exam: Present: normal rhythm, tachycardia GI/Abdominal exam: Present: soft. Absent: distended, tenderness, guarding Extremities exam: Present: normal inspection, normal capillary refill. Absent: pedal edema, calf tenderness Neurological exam: Present: alert. Absent: motor sensory deficit Psychiatric exam: Present: anxious Skin exam: Present: warm, dry Course Vital Signs 04/20/24 04/20/24 04/20/24 02:53 03:04 03:08 Temperature 99.9 F H Pulse Rate 135 H 130 H Respiratory 24 Rate Blood Pressure 186/120 O2 Sat by Pulse 94 L Oximetry Fraction of 40 Inspired Oxygen (FIO2) 04/20/24 04/20/24 04/20/24 03:09 03:16 03:54 Temperature Pulse Rate 131 H 131 H 122 H Respiratory 24 24 Rate Blood Pressure 179/91 135/92 O2 Sat by Pulse 98 97 Oximetry Fraction of Inspired Oxygen (FIO2) Medical Decision Making - Medical Decision Making Was pt. sent in by a medical professional or institution (, PA, SUGAR REFINERY SUPERVISOR, urgent care, hospital, or residential...) When possible be specific @ -No Did you speak to anyone other than the patient for history (EMS, parent, family, police, friend...)? What history was obtained from this source @ -Paramedics Did you review nursing and triage notes (agree or disagree)? Why? @ -I reviewed and agree with nursing and triage notes Were old charts reviewed (outside hosp., previous admission, EMS record, old EKG, old radiological studies, urgent care reports/EKG's, residential records)? Report findings @ -No old charts were reviewed Differential Dyspnea: Coronary syndrome, arrhythmia, tamponade, asthma, COPD, pulmonary embolism, pneumonia, pneumothorax, pulmonary effusion, anaphylaxis, diabetic ketoacidosis, flailed chest, pulmonary contusion, diaphragmatic rupture, anemia, neuromuscular, this is not meant to be an all-inclusive list. EKG interpreted by me (3pts min.). @ -EKG sinus tachycardia rate of 123, NE interval 150, QRS duration 74, QTc 354 significant artifact secondary to respiratory distress X-rays interpreted by me (1pt min.). @Single view chest x-ray showing bilateral lower lobe infiltrate CT interpreted by me (1pt min.). @ -None done U/S interpreted by me (1pt. min.). @ -None done What testing was considered but not performed or refused? (CT, X-rays, U/S, labs)? Why? @ -None What meds were considered but not given or refused? Why? @ -None Did you discuss the management of the patient with other professionals (professionals i.e. , PA, SUGAR REFINERY SUPERVISOR, lab, RT, psych nurse, social science research assistant, human resources talent manager, teacher, commissioned police officer, cyanide case hardener)? Give summary @Case discussed with Dr. Chilel who will admit Was smoking cessation discussed for >3mins.? @ -No Was critical care preformed (if so, how long)? @Yes, 35 minutes Were there social determinants of health that impacted care today? How? (Homelessness, low income, unemployed, alcoholism, drug addiction, transportation, low edu. Level, literacy, decrease access to med. care, detention, rehab)? @ -No Was there de-escalation of care discussed even if they declined (Discuss DNR or withdrawal of care, Hospice)? DNR status @ -No What co-morbidities impacted this encounter? (DM, HTN, Smoking, COPD, CAD, Cancer, CVA, ARF, Chemo, Hep., AIDS, mental health diagnosis, sleep apnea, morbid obesity)? @COPD Was patient admitted / discharged? Hospital course, mention meds given and route, prescriptions, significant lab abnormalities, going to OR and other pertinent info. @ -63-year-old female with COPD, presenting with respiratory distress. Patient placed on BiPAP upon arrival. She has diffuse wheezing and rhonchi. She is febrile, tachycardic with increased oxygen requirements. Given albuterol, Atrovent, magnesium, Solu-Medrol. Chest x-ray does show bilateral pneumonia. Blood cultures are obtained. Patient started on antibiotics. She will be admitted to the hospital for COPD, pneumonia, respiratory failure. Pulmonology placed on consult. Undiagnosed new problem with uncertain prognosis? @ -No Drug Therapy requiring intensive monitoring for toxicity (Heparin, Nitro, Insulin, Cardizem)? @ -No Were any procedures done? @ -No Diagnosis/symptom? @ -COPD exacerbation, pneumonia Acute, or Chronic, or Acute on Chronic? @ -[Acute on chronic Uncomplicated (without systemic symptoms) or Complicated (systemic symptoms)? @ -Complicated Side effects of treatment? @ -No Exacerbation, Progression, or Severe Exacerbation? @ -No Poses a threat to life or bodily function? How? (Chest pain, USA, NE, pneumonia, PE, COPD, DKA, ARF, appy, cholecystitis, CVA, Diverticulitis, Homicidal, Suicidal, threat to staff... and all critical care pts) @Yes, COPD, pneumonia, sepsis, respiratory failure - Lab Data Result diagrams: 04/20/24 02:59 04/20/24 02:59 Lab Results 04/20/24 04/20/24 04/20/24 Range/Units 02:59 02:59 02:59 WBC 10.7 H (3.8-10.6) k/uL RBC 4.08 (3.80-5.40) m/uL Hgb 12.3 (11.4-16.0) gm/dL Hct 37.4 (34.0-46.0) % MCV 91.6 (80.0-100.0) fL MCH 30.3 (25.0-35.0) pg MCHC 33.0 (31.0-37.0) g/dL RDW 13.5 (11.5-15.5) % Plt Count 400 (150-450) k/uL MPV 7.0 Neutrophils % 85 % Lymphocytes % 8 % Monocytes % 6 % Eosinophils % 1 % Basophils % 0 % Neutrophils # 9.1 H (1.3-7.7) k/uL Lymphocytes # 0.8 L (1.0-4.8) k/uL Monocytes # 0.7 (0-1.0) k/uL Eosinophils # 0.1 (0-0.7) k/uL Basophils # 0.0 (0-0.2) k/uL PT 10.5 (10.0-12.5) sec INR 0.9 (<1.2) APTT 21.9 L (22.0-30.0) sec Sodium 133 L (137-145) mmol/L Potassium 4.2 (3.5-5.1) mmol/L Chloride 98 (98-107) mmol/L Carbon Dioxide 31 H (22-30) mmol/L Anion Gap 4 mmol/L BUN 12 (7-17) mg/dL Creatinine 0.51 L (0.52-1.04) mg/dL Est GFR (CKD-EPI)AfAm >90 (>60 ml/min/1.73 sqM) Est GFR (CKD-EPI)NonAf >90 (>60 ml/min/1.73 sqM) Glucose 145 H (74-99) mg/dL Plasma Lactic Acid Paco (0.7-2.0) mmol/L Calcium 9.1 (8.4-10.2) mg/dL Magnesium 1.5 L (1.6-2.3) mg/dL Total Bilirubin 0.6 (0.2-1.3) mg/dL AST 21 (14-36) U/L ALT 16 (4-34) U/L Alkaline Phosphatase 67 (38-126) U/L Total Protein 7.0 (6.3-8.2) g/dL Albumin 4.4 (3.5-5.0) g/dL Influenza Type A (PCR) (Not Detectd) Influenza Type B (PCR) (Not Detectd) RSV (PCR) (Not Detectd) SARS-CoV-2 (PCR) (Not Detectd) 04/20/24 04/20/24 Range/Units 02:59 03:03 WBC (3.8-10.6) k/uL RBC (3.80-5.40) m/uL Hgb (11.4-16.0) gm/dL Hct (34.0-46.0) % MCV (80.0-100.0) fL MCH (25.0-35.0) pg MCHC (31.0-37.0) g/dL RDW (11.5-15.5) % Plt Count (150-450) k/uL MPV Neutrophils % % Lymphocytes % % Monocytes % % Eosinophils % % Basophils % % Neutrophils # (1.3-7.7) k/uL Lymphocytes # (1.0-4.8) k/uL Monocytes # (0-1.0) k/uL Eosinophils # (0-0.7) k/uL Basophils # (0-0.2) k/uL PT (10.0-12.5) sec INR (<1.2) APTT (22.0-30.0) sec Sodium (137-145) mmol/L Potassium (3.5-5.1) mmol/L Chloride (98-107) mmol/L Carbon Dioxide (22-30) mmol/L Anion Gap mmol/L BUN (7-17) mg/dL Creatinine (0.52-1.04) mg/dL Est GFR (CKD-EPI)AfAm (>60 ml/min/1.73 sqM) Est GFR (CKD-EPI)NonAf (>60 ml/min/1.73 sqM) Glucose (74-99) mg/dL Plasma Lactic Acid Paco 1.3 (0.7-2.0) mmol/L Calcium (8.4-10.2) mg/dL Magnesium (1.6-2.3) mg/dL Total Bilirubin (0.2-1.3) mg/dL AST (14-36) U/L ALT (4-34) U/L Alkaline Phosphatase (38-126) U/L Total Protein (6.3-8.2) g/dL Albumin (3.5-5.0) g/dL Influenza Type A (PCR) Not Detected (Not Detectd) Influenza Type B (PCR) Not Detected (Not Detectd) RSV (PCR) Not Detected (Not Detectd) SARS-CoV-2 (PCR) Not Detected (Not Detectd) Critical Care Time Critical Care Time: Yes Total Critical Care Time: 35 Disposition Clinical Impression: Acute exacerbation of chronic obstructive pulmonary disease, Community acquired pneumonia Disposition: ADMITTED IP TO THIS HOSP Condition: Stable Is patient prescribed a controlled substance at d/c from ED?: No Referrals: Maycol Rowan DO [Primary Care Provider] - 1-2 days Time of Disposition: 04:14
[2024-04-20] MEDS: SODIUM CHLORIDE 0.9% 1,000 ML IV SCH (04:51)
[2024-04-20] MEDS: SODIUM CHLORIDE 0.9% 500 ML 500 ML IV ONE (04:51)
--- NOTE | 2024-04-20 06:13 | P.HPIM ---
History of Present Illness H&P Date: 04/20/24 Chief Complaint: Shortness of breath History of present illness; 63-year-old female with lupus, COPD maintained on 3 L nasal cannula at home, fibromyalgia and hyperlipidemia. She presented to the emergency department overnight after worsening of her breathing status and incr ease in her oxygen demand at home. Patient's is at bedside and the history required was from both the patient and her . Patient follows up with Dr. Bustillo outpatient and saw him a couple of days ago in which it was noted that her lungs sounded "tight", and the patient was started on a steroid at that time. Per the patient's , she normally utilizes 3 L nasal cannula at home, however has intervals in which she does not need her oxygen while moving around. Additionally, he states that most times when he notes her oxygen levels decreasing, once placed on nasal cannula saturations return to high 90%'s, however this time is different. Patient was noted to be satting in the mid 80s on 3 L, at that time her increased to the maximum her nasal cannula house which is 5 L and saturation increased only to 90-91%. She describes no associated chest pain, no leg pain or swelling. Per the patient's she has been feeling feverish the past day or 2, with associated increasing cough and bodyaches. He notes that she has been rather susceptible to pneumonias in the past. Additionally, he notes that his previous episodes of pneumonia most antibiotics have been ineffective, noting that Levaquin is seemingly consistently been the most effective. At this time patient states that she is feeling better than when she first arrived, and has no acute complaints. Additionally, her notes that for the past few months she has been considerably tachycardic, with no discernible cause. Dr. Bustillo had started her on atenolol 25 mg daily about one a month ago which she notes is kept her heart rate closer to 90. Additionally, patient has met with Dr. Herzog in an effort to rule out a cardiac cause of this tachycardia, her next appointment with him being next week. This time patient states that she is feeling better than when she first arrived, and has no acute complaints. Imaging: -Chest x-ray done in the ER showed increased interstitial opacities bilateral lower lobes -EKG done in the ER showed heart rate of 123, sinus tachycardia with frequent ventricular contractions with artifact likely secondary to respiratory distress; QTc 354 Vitals: -Blood pressure 129/78, heart rate 111, respiratory rate 22, SpO2 98% on BiPAP Patient admitted to internal medicine service REVIEW OF SYSTEMS: CONSTITUTIONAL: Notes feeling feverish the past few days. HEENT: No recent visual problems or hearing problems. Denied any sore throat. CARDIOVASCULAR: No chest pain, orthopnea, PND, no palpitations, no syncope. PULMONARY: Shortness of breath with associated increased cough over the past week. Patient currently on BiPAP. GASTROINTESTINAL: No diarrhea, no nausea, no vomiting, no abdominal pain. NEUROLOGICAL: No headaches, no weakness, no numbness. HEMATOLOGICAL: Denies any bleeding or petechiae. GENITOURINARY: Denies any burning micturition, frequency, or urgency. MUSCULOSKELETAL/RHEUMATOLOGICAL: Endorses regular pains, associated with her lupus. ENDOCRINE: Denies any polyuria or polydipsia. The rest of the 14-point review of systems is negative. PHYSICAL EXAMINATION: GENERAL: The patient is alert and oriented x3, not in any acute distress. Well developed, well nourished. HEENT: No scleral icterus. No conjunctival pallor. Normocephalic, atraumatic. CARDIOVASCULAR: S1 and S2 present. No murmurs, rubs, or gallops. PULMONARY: Wheezing and rhonchi heard diffusely. ABDOMEN: Soft, nontender, nondistended, normoactive bowel sounds. No palpable organomegaly. MUSCULOSKELETAL: No joint swelling or deformity. EXTREMITIES: No cyanosis, clubbing, or pedal edema. NEUROLOGICAL: Gross neurological examination did not reveal any focal deficits. SKIN: No rashes. Assessment and plan 63-year-old female with lupus and COPD on home oxygen coming in with couple day history of worsening shortness of breath despite outpatient treatment I discussed case with ED doctor and accepted the admission for acute COPD exacerbation requiring BiPAP therapy with anticipated length of stay more than 2 midnights #Complicated COPD exacerbation #Acute on chronic hypoxic respiratory failure, maintained on 3 L nasal cannula at home -Patient received a 125 mg IV once Solu-Medrol -Patient received 5 mg Ventolin -Patient received 0.5 mg Atrovent -Patient will continue with DuoNeb every 2 hours as needed, as well as 4 times daily -Patient will continue with 60 mg IV every 6 hours Solu-Medrol -Patient will continue on BiPAP; titrate off BiPAP, and lessen supplemental oxygen use as able -Pulmonology has been consulted #SIRS, likely secondary to pneumonia #Leukocytosis -Blood culture ordered, currently pending -Sputum culture currently pending -Patient received 2 g Rocephin IV once -Patient will continue on 100 mg twice daily doxy, for 10 doses Chest x-ray done in the ER showed increased interstitial opacities bilateral lower lobes acute respiratory viral panel negative for influenza , RSV and covid #Lupus -Patient maintained at home on steroid, pain medication, and muscle relaxants, some of which 4 times daily -Once confirmed by pharmacy, resume patient's home medication regimen #Intractable tachycardia -Dr. Bustillo started the patient on Atenolol 25 mg daily, which has helped better control HR to close to 90 -Has followed with Dr. Herzog to r/o possible cardiac cause - next appointment in ~1 week check TSH, Free T4 #Hypomagnesemia -Patient received one 1gm IVPB magnesium sulfate-D5w -Monitor BMP, replenish as needed #Hyponatremia -Patient being maintained on 130 cc/h normal saline -Monitor BMP #Hyperlipidemia -Continue home Lipitor 40 mg daily GI prohylaxis: Protonix 40 mg daily DVT prophylaxis: Lovenox 40 mg sq daily Dictation was produced using [email or web address] dictation software. please excuse any grammatical, word or spelling errors. Past Medical History Past Medical History: Asthma, Fibromyalgia, Hyperlipidemia, Osteoarthritis (OA) Additional Past Medical History / Comment(s): CLUSTER HEADACHES, LUPUS, HX ULCERS, MEDTRONIC PAIN PUMP LEFT BUTTOCKS- chronic back pain, "complete cervical/lumbar fusion" History of Any Multi-Drug Resistant Organisms: None Reported Past Surgical History: Appendectomy, Back Surgery, Breast Surgery Additional Past Surgical History / Comment(s): LUMBAR LAMINECTOMY X3, FUSION C-4 AND C-5, MEDTRONIC PAIN PUMP. Benign stereotactic core bx. right breast 2003, benign u/s core bx. right breast 2003. Past Anesthesia/Blood Transfusion Reactions: No Reported Reaction Past Psychological History: No Psychological Hx Reported Smoking Status: Former smoker Past Alcohol Use History: None Reported Past Drug Use History: None Reported - Past Family History Mother Family Medical History: Deep Vein Thrombosis (DVT) Father Family Medical History: Cancer Additional Family Medical History / Comment(s): LUNG Medications and Allergies Home Medications Medication Instructions Recorded Confirmed Type Atorvastatin [Lipitor] 40 mg PO DAILY 04/10/14 11/13/23 History Metoclopramide [Reglan] 10 mg PO QID 04/10/14 11/13/23 History Pantoprazole Sodium [Protonix] 40 mg PO DAILY 04/10/14 11/13/23 History Albuterol Sulfate [Proair Hfa] 1 - 2 puff INHALATION RT-Q4H PRN 01/22/22 11/13/23 History Butalb/Acetaminophen/Caffeine 1 cap PO Q4HR PRN 01/22/22 11/13/23 History [Fioricet 50-300-40 mg Capsule] Ipratropium-Albuterol Nebulize 3 ml INHALATION RT-TID PRN 01/22/22 11/13/23 History [Duoneb 0.5 mg-3 mg/3 ml Soln] methocarbamoL [Robaxin-750] 750 mg PO QID 01/22/22 11/13/23 History Amitriptyline HCl [Elavil] 75 mg PO HS PRN 06/08/23 11/13/23 History Budesonide/Formoterol Fumarate 2 puff INHALATION RT-BID 06/08/23 11/13/23 History [Breyna 160-4.5 Mcg Inhaler] Gabapentin 600 mg PO BID 06/08/23 11/13/23 History oxyCODONE HCL [oxyCODONE HCL (IR)] 20 mg PO QID 06/08/23 11/13/23 History LORazepam [Ativan] 1 tab PO DAILY PRN 11/13/23 11/13/23 History Pantoprazole [Protonix] 40 mg PO DAILY PRN 11/13/23 11/13/23 History Amoxic-Pot Clav 875-125Mg 1 each PO Q12HR #6 tab 11/15/23 Rx [Augmentin 875-125] predniSONE [Deltasone] 40 mg PO DAILY #6 tab 11/15/23 Rx Tiotropium 2.5 Mcg/Puff [Spiriva 1 puff INHALATION DAILY #1 each 11/17/23 Rx Respimat 2.5 Mcg] hydroCHLOROthiazide [Hydrodiuril] 12.5 mg PO DAILY #30 cap 11/17/23 Rx Allergies Allergy/AdvReac Type Severity Reaction Status Date / Time erythromycin base Allergy Abdominal Verified 11/13/23 10:07 Pain Physical Exam Vitals: Vital Signs Temp Pulse Resp BP Pulse Ox FiO2 04/20/24 04:52 98.5 F 111 H 22 129/78 98 04/20/24 03:54 122 H 24 135/92 97 04/20/24 03:16 131 H 04/20/24 03:09 131 H 24 179/91 98 04/20/24 03:08 130 H 04/20/24 03:04 40 04/20/24 02:53 99.9 F H 135 H 24 186/120 94 L Intake and Output 04/19/24 04/19/24 04/20/24 14:59 22:59 06:59 Other: Weight 70.307 kg Results CBC & Chem 7: 04/20/24 02:59 04/20/24 02:59 Labs: Abnormal Lab Results - Last 24 Hours (Table) 04/20/24 04/20/24 04/20/24 Range/Units 02:59 02:59 02:59 WBC 10.7 H (3.8-10.6) k/uL Neutrophils # 9.1 H (1.3-7.7) k/uL Lymphocytes # 0.8 L (1.0-4.8) k/uL APTT 21.9 L (22.0-30.0) sec VBG pCO2 (37-51) mmHg VBG HCO3 (24-28) mmol/L Sodium 133 L (137-145) mmol/L Carbon Dioxide 31 H (22-30) mmol/L Creatinine 0.51 L (0.52-1.04) mg/dL Glucose 145 H (74-99) mg/dL Magnesium 1.5 L (1.6-2.3) mg/dL 04/20/24 Range/Units 03:31 WBC (3.8-10.6) k/uL Neutrophils # (1.3-7.7) k/uL Lymphocytes # (1.0-4.8) k/uL APTT (22.0-30.0) sec VBG pCO2 59 H (37-51) mmHg VBG HCO3 34 H (24-28) mmol/L Sodium (137-145) mmol/L Carbon Dioxide (22-30) mmol/L Creatinine (0.52-1.04) mg/dL Glucose (74-99) mg/dL Magnesium (1.6-2.3) mg/dL Assessment and Plan Assessment: I have seen and evaluated the patient today. I Discussed the case with the resident and agree with the resident's findings I edited the assessment and pl an as necessary as documented in the resident's note.
[2024-04-20] MEDS: methylPREDNISolone SOD SUCCI 125 MG/2 ML VIAL IV SCH ×2 (06:33→12:24)
[2024-04-20] MEDS: IPRATROPIUM-ALBUTEROL 3 ML NEB INHALATION SCH (07:35)
[2024-04-20] MEDS: DOXYCYCLINE 100 MG CAP PO SCH (08:44)
[2024-04-20] MEDS: ATORVASTATIN 40 MG TAB PO SCH (08:45)
[2024-04-20] MEDS: ENOXAPARIN 40 MG/0.4 ML SYRINGE SQ SCH (08:46)
[2024-04-20] MEDS: PANTOPRAZOLE 40 MG TABLET PO SCH (08:48)
[2024-04-20 09:52] LABS: T4, Free (Free Thyroxine) 0.85 ng/dL (0.78-2.19)
[2024-04-20] MEDS: ALPRAZolam 0.5 MG TAB PO PRN (12:23)
[2024-04-20] MEDS: atenoloL 25 MG TAB PO SCH (12:23)
[2024-04-20] MEDS: METOCLOPRAMIDE 10 MG TAB PO SCH (12:23)
--- NOTE | 2024-04-20 13:51 | P.CNPUL ---
History of Present Illness Consult date: 04/20/24 Requesting physician: Jelena Chilel Reason for consult: COPD Chief complaint: Shortness of breath, cough, congestion History of present illness: This is a pleasant 63-year-old female patient with a known history of prior tobacco dependence, oxygen dependent chronic obstructive pulmonary disease, lupus, fibromyalgia. She had developed worsening shortness of breath cough and congestion. She was ordered steroids 2 days ago without much improvement. She presented here to the emergency room early this morning with increasing shortness of breath cough congestion and O2 saturations in the 70s. She is placed on BiPAP 10/5 and 40% FiO2. She is seen in consultation in the emergency department. She is awake and alert. Chest x-ray shows increased interstitial opacities in the bilateral lower lobes. Right count 10.7. Hemoglobin 12.3. Platelets 400. Sodium 133. Potassium 4.2. Bicarb 31. BUN 12. Creatinine 0.51. Glucose 145. Viral screen is negative. She has been initiated on DuoNeb inhalations, Symbicort, Solu-Medrol. Empiric antibiotics in the form of Vibramycin. Procalcitonin pending. Lovenox for DVT prophylaxis. Normal saline at 75 mL/h. Review of Systems REVIEW OF SYSTEMS: CONSTITUTIONAL: Denies any recent significant weight loss or weight gain. EYES: Denies change in vision. EARS, NOSE, MOUTH, THROAT: Denies headaches, denies sore throat. CARDIOVASCULAR: Denies chest pain, palpitations or syncopal episodes. RESPIRATORY: Positive for shortness of breath, cough, congestion no hemoptysis. GASTROINTESTINAL: Denies change in appetite, denies abdominal pain GENITOURINARY: Denies hematuria, denies infections. MUSKULOSKELETAL: Denies pain, denies swelling. INTEGUMENTARY: Denies rash, denies eczema. NEUROLOGICAL: Denies recent memory loss, no recent seizure activity. PSYCHIATRIC: Denies anxiety, denies depression. HEMATOLOGIC/LYMPHATIC: Denies anemia, denies enlarged lymph nodes. Past Medical History Past Medical History: Asthma, Fibromyalgia, Hyperlipidemia, Osteoarthritis (OA) Additional Past Medical History / Comment(s): CLUSTER HEADACHES, LUPUS, HX ULCERS, MEDTRONIC PAIN PUMP LEFT BUTTOCKS- chronic back pain, "complete cervical/lumbar fusion" History of Any Multi-Drug Resistant Organisms: None Reported Past Surgical History: Appendectomy, Back Surgery, Breast Surgery Additional Past Surgical History / Comment(s): LUMBAR LAMINECTOMY X3, FUSION C-4 AND C-5, MEDTRONIC PAIN PUMP. Benign stereotactic core bx. right breast 2003, benign u/s core bx. right breast 2003. Past Anesthesia/Blood Transfusion Reactions: No Reported Reaction Past Psychological History: No Psychological Hx Reported Smoking Status: Former smoker Past Alcohol Use History: None Reported Past Drug Use History: None Reported - Past Family History Mother Family Medical History: Deep Vein Thrombosis (DVT) Father Family Medical History: Cancer Additional Family Medical History / Comment(s): LUNG Medications and Allergies Home Medications Medication Instructions Recorded Confirmed Type Atorvastatin [Lipitor] 40 mg PO DAILY 04/10/14 04/20/24 History Metoclopramide [Reglan] 10 mg PO QID 04/10/14 04/20/24 History Pantoprazole Sodium [Protonix] 40 mg PO DAILY 04/10/14 04/20/24 History Albuterol Sulfate [Proair Hfa] 1 - 2 puff INHALATION RT-Q4H PRN 01/22/22 04/20/24 History Butalb/Acetaminophen/Caffeine 1 cap PO Q4HR PRN 01/22/22 04/20/24 History [Fioricet 50-300-40 mg Capsule] Ipratropium-Albuterol Nebulize 3 ml INHALATION RT-TID PRN 01/22/22 04/20/24 History [Duoneb 0.5 mg-3 mg/3 ml Soln] methocarbamoL [Robaxin-750] 750 mg PO QID 01/22/22 04/20/24 History Amitriptyline HCl [Elavil] 75 mg PO HS PRN 06/08/23 04/20/24 History Gabapentin 600 mg PO BID 06/08/23 04/20/24 History oxyCODONE HCL [oxyCODONE HCL (IR)] 20 mg PO QID 06/08/23 04/20/24 History LORazepam [Ativan] 1 tab PO DAILY PRN 11/13/23 04/20/24 History Pantoprazole [Protonix] 40 mg PO DAILY PRN 11/13/23 04/20/24 History Fluticasone/Umeclidin/Vilanter 1 puff INHALATION RT-DAILY 04/20/24 04/20/24 History [Trelegy Ellipta 100-62.5-25] Nystatin 100,000 Unit/ml Susp 500,000 units PO QID PRN 04/20/24 04/20/24 History [Mycostatin Oral Susp] atenoloL 25 mg PO DAILY 04/20/24 04/20/24 History predniSONE See Taper PO DIRECTED 04/20/24 04/20/24 History Allergies Allergy/AdvReac Type Severity Reaction Status Date / Time erythromycin base Allergy Abdominal Verified 04/20/24 08:50 Pain Physical Exam Vitals: Vital Signs Temp Pulse Resp BP Pulse Ox FiO2 04/20/24 12:34 96 21 138/74 97 04/20/24 11:21 120 H 04/20/24 11:04 40 04/20/24 11:03 100 04/20/24 10:00 101 H 20 115/65 99 04/20/24 07:54 114 H 04/20/24 07:38 99 40 04/20/24 07:37 40 04/20/24 07:35 115 H 04/20/24 06:00 106 H 22 130/90 98 04/20/24 04:52 98.5 F 111 H 22 129/78 98 04/20/24 03:54 122 H 24 135/92 97 04/20/24 03:16 131 H 04/20/24 03:09 131 H 24 179/91 98 04/20/24 03:08 130 H 04/20/24 03:04 40 04/20/24 02:53 99.9 F H 135 H 24 186/120 94 L Intake and Output 04/19/24 04/20/24 04/20/24 22:59 06:59 14:59 Other: Weight 70.307 kg GENERAL EXAM: Alert, pleasant 63-year-old female, on BiPAP 10/5 and 40% FiO2, fairly comfortable in no apparent distress. HEAD: Normocephalic. EYES: Normal reaction of pupils, equal size. NOSE: Clear with pink turbinates. THROAT: No erythema or exudates. NECK: No masses, no JVD. CHEST: No chest wall deformity. LUNGS: Equal air entry with bilateral scattered rhonchi, diminished. CVS: S1 and S2 normal with no audible murmur, regular rhythm. ABDOMEN: No hepatosplenomegaly, normal bowel sounds, no guarding or rigidity. SPINE: No scoliosis or deformity SKIN: No rashes CENTRAL NERVOUS SYSTEM: No focal deficits, tone is normal in all 4 extremities. EXTREMITIES: There is no peripheral edema. No clubbing, no cyanosis. Peripheral pulses are intact. Results - Laboratory Findings CBC and BMP: 04/20/24 02:59 04/20/24 02:59 PT/INR, D-dimer PT 10.5 sec (10.0-12.5) 04/20/24 02:59 INR 0.9 (<1.2) 04/20/24 02:59 Abnormal lab findings: Abnormal Labs 04/20/24 04/20/24 04/20/24 02:59 02:59 02:59 WBC 10.7 H Neutrophils # 9.1 H Lymphocytes # 0.8 L APTT 21.9 L VBG pCO2 VBG HCO3 Sodium 133 L Carbon Dioxide 31 H Creatinine 0.51 L Glucose 145 H Magnesium 1.5 L TSH 04/20/24 04/20/24 03:31 07:13 WBC Neutrophils # Lymphocytes # APTT VBG pCO2 59 H VBG HCO3 34 H Sodium Carbon Dioxide Creatinine Glucose Magnesium TSH 0.259 L - Diagnostic Findings Chest x-ray: image reviewed Assessment and Plan Assessment: Acute on chronic hypoxemic respiratory failure secondary to an acute exacerbation of COPD, possible early pneumonia History of oxygen dependent chronic obstructive pulmonary disease normally on 3 L nasal cannula. Maintained on Trelegy and albuterol Former smoker History of lupus Fibromyalgia Hyperlipidemia Plan: The patient was seen and evaluated Chest x-ray, labs and medications reviewed Initiated on DuoNeb inhalations, Symbicort Initiated on Solu-Medrol 60 mg every 6 hours Check a procalcitonin Continue doxycycline for now Lovenox for DVT prophylaxis Decrease normal saline to 75 mL/h Titrate down the FiO2 as tolerated Transition to nasal cannula when tolerated We will continue to follow and make further recommendations based on her clinical status I have personally seen and examined the patient, performed the documentation and the assessment and plan as written. Number of minutes spent on the visit: 20 Dictation was produced using [employer] dictation software. Please excuse any grammatical, word or spelling errors.
[2024-04-20] MEDS: methocarbamoL 750 MG TAB PO SCH (18:07)
[2024-04-20] MEDS: BUTALB/APAP/CAFF 50-325-40MG TAB PO PRN (18:36)
[2024-04-20] MEDS: GABAPENTIN 300 MG CAP PO SCH (21:10)
[2024-04-21] MEDS: SYMBICORT 80-4.5 MCG INHALER INHALATION SCH (08:29)
[2024-04-21] MEDS ORDERED: PANTOPRAZOLE 40 MG TABLET PO SCH (09:00)
[2024-04-21] MEDS: IPRATROPIUM-ALBUTEROL 3 ML NEB INHALATION SCH (11:52)
--- NOTE | 2024-04-21 12:43 | P.PN ---
Subjective Progress Note Date: 04/21/24 Principal diagnosis: Acute on chronic hypoxic respiratory failure secondary to acute exacerbation of COPD This is a pleasant 63-year-old female patient with a known history of prior tobacco dependence, oxygen dependent chronic obstructive pulmonary disease, lupus, fibromyalgia. She had developed worsening shortness of breath cough and congestion. She was ordered steroids 2 days ago without much improvement. She presented here to the emergency room early this morning with increasing shortness of breath cough congestion and O2 saturations in the 70s. She is placed on BiPAP 10/5 and 40% FiO2. She is seen in consultation in the emergency department. She is awake and alert. Chest x-ray shows increased interstitial opacities in the bilateral lower lobes. Right count 10.7. Hemoglobin 12.3. Platelets 400. Sodium 133. Potassium 4.2. Bicarb 31. BUN 12. Creatinine 0.51. Glucose 145. Viral screen is negative. She has been initiated on DuoNeb inhalations, Symbicort, Solu-Medrol. Empiric antibiotics in the form of Vibramycin. Procalcitonin pending. Lovenox for DVT prophylaxis. Normal saline at 75 mL/h. Patient was seen today on 04/21/2024, patient is feeling better today, breathing easier, less cough less wheezing less shortness of breath. Procalcitonin level came back normal reviewed previous CT of the chest on this patient, the findings in the right lower lobe seem to be chronic based on a CT of the chest back in , patient has some fibrotic changes/chronic in the right lower lobe and to some extent in the left lower lobe. Hence the findings on the chest x-ray seems to be chronic. Clinically the patient is feeling better, and she looks better today, she sounds even better on physical examination. Objective - Vital Signs Vital signs: Vital Signs Temp 97.8 F 04/21/24 11:16 Pulse 86 04/21/24 12:06 Resp 18 04/21/24 11:16 BP 138/78 04/21/24 11:16 Pulse Ox 99 04/21/24 11:16 FiO2 40 04/20/24 15:00 Intake & Output 04/20/24 04/21/24 04/21/24 18:59 06:59 18:59 Weight 70.307 kg 70 kg Other: Voiding Method Bedside Commode Bedside Commode # Voids 1 # Bowel Movements 1 - Exam GENERAL EXAM: Reveals 63-year-old white female in no distress, on nasal cannula. 4 L with O2 sat of 99% HEAD: Normocephalic. Atraumatic EYES: Normal reaction of pupils, equal size. NOSE: Clear with pink turbinates. THROAT: No erythema or exudates. NECK: No masses, no JVD. CHEST: No chest wall deformity. LUNGS: Clear bilaterally diminished at the bases no rhonchi no wheezes CVS: S1 and S2 normal with no audible murmur, regular rhythm. ABDOMEN: No hepatosplenomegaly, normal bowel sounds, no guarding or rigidity. SKIN: No rashes CENTRAL NERVOUS SYSTEM: Alert oriented x 3 no gross focal deficit EXTREMITIES: No clubbing edema or cyanosis - Labs CBC & Chem 7: 04/20/24 02:59 04/20/24 02:59 Assessment and Plan Assessment: Impression: Acute on chronic hypoxemic respiratory failure secondary to an acute exacerb ation of COPD, doubt pneumonia since the findings on the right lower lobe are chronic History of oxygen dependent chronic obstructive pulmonary disease normally on 3 L nasal cannula. Maintained on Trelegy and albuterol Former smoker History of lupus Fibromyalgia Hyperlipidemia Recommendation: Continue present bronchodilators, Continue Solu-Medrol, Procalcitonin level is normal Continue antibiotics for acute COPD exacerbation patient is on doxycycline Titrate FiO2 accordingly Will continue to follow Possible discharge planning in the next 24 to 48 hours Time with Patient: Less than 30
--- NOTE | 2024-04-21 12:59 | P.PN ---
Subjective Progress Note Date: 04/21/24 Pt reports breathing has improved, but is still extremely dyspneic with minimal activity. Gen: In NAD, non-toxic HEENT: normocephalic, atraumatic, hearing acuity is intant, mucous membranes moist CVS: perfusing all extremities well, no pitting edema, Respiratory: symmetric chest expansion, no accessory muscle use, GI: soft, NTTP, ND, : no suprapubic tenderness, no CVA tenderness MSK/Derm: no rashes, cyanosis Neuro: CN II-XII intact, no motor weakness, Psych: cooperative, euthymic mood, judgment and insight is intact Hospital course: 63-year-old female with lupus, COPD maintained on 3 L nasal cannula at home, fibromyalgia and hyperlipidemia. She presented to the emergency department overnight after worsening of her breathing status and increase in her oxygen dem and at home. Patient admitted to internal medicine service. Imaging: -Chest x-ray done in the ER showed increased interstitial opacities bilateral lower lobes -EKG done in the ER showed heart rate of 123, sinus tachycardia with frequent ventricular contractions with artifact likely secondary to respiratory distress; QTc 354 Assessment and plan #Acute COPD exacerbation #Acute on chronic hypoxic respiratory failure, maintained on 3 L nasal cannula at home -Patient will continue with DuoNeb every 2 hours as needed, as well as 4 times daily -Taper solumedrol to 40mg IV daily -Patient will continue on BiPAP; titrate off BiPAP, and lessen supplemental oxygen use as able -Pulmonology has been consulted -Blood culture ordered, NGTD -Sputum culture currently pending -Patient received 2 g Rocephin IV once -Discontinue abx due to low PC and no s/s of infx Chest x-ray done in the ER showed increased interstitial opacities bilateral lower lobes acute respiratory viral panel negative for influenza , RSV and covid #Lupus -Patient maintained at home on steroid, pain medication, and muscle relaxants, some of which 4 times daily -Once confirmed by pharmacy, resume patient's home medication regimen #Intractable tachycardia -Dr. Bustillo started the patient on Atenolol 25 mg daily, which has helped better control HR to close to 90 -Has followed with Dr. Herzog to r/o possible cardiac cause - next appointment in ~1 week check TSH = 0.25, Free T4 = 0.85 #Hypomagnesemia -Patient received one 1gm IVPB magnesium sulfate-D5w -Monitor BMP, replenish as needed #Hyponatremia -Patient being maintained on 130 cc/h normal saline -Monitor BMP #Hyperlipidemia -Continue home Lipitor 40 mg daily GI prohylaxis: Protonix 40 mg daily DVT prophylaxis: Lovenox 40 mg sq daily Dictation was produced using [employer] dictation software. please excuse any grammatical, word or spelling errors. Objective - Vital Signs Vital signs: Vital Signs Temp 97.8 F 04/21/24 11:16 Pulse 86 04/21/24 12:06 Resp 18 04/21/24 11:16 BP 138/78 04/21/24 11:16 Pulse Ox 99 04/21/24 11:16 FiO2 40 04/20/24 15:00 Intake & Output 04/20/24 04/21/24 04/21/24 18:59 06:59 18:59 Weight 70.307 kg 70 kg Other: Voiding Method Bedside Commode Bedside Commode # Voids 1 # Bowel Movements 1 - Labs CBC & Chem 7: 04/20/24 02:59 04/20/24 02:59
[2024-04-22] MEDS: methylPREDNISolone SOD SUCCI 40 MG/ML 1 ML VIAL IV SCH (08:10)
--- NOTE | 2024-04-22 12:41 | P.PN ---
Subjective Progress Note Date: 04/22/24 Hospital Course: 63-year-old female with lupus, COPD maintained on 3 L nasal cannula at home, l upus?, fibromyalgia and hyperlipidemia. She presented to the emergency department after worsening of her breathing status and increase in her oxygen demand at home. Patient admitted to internal medicine service. -Chest x-ray done in the ER showed increased interstitial opacities bilateral lower lobes -EKG done in the ER showed heart rate of 123, sinus tachycardia with frequent ventricular contractions with artifact likely secondary to respiratory distress; QTc 354 Laboratory workup showed mild leukocytosis of 10.7, mild hyponatremia 133, magnesium 1.5, procalcitonin was 0.04, TSH 0.259, free T40.85, respiratory viral panel was negative. Patient started on IV steroids, bronchodilators. Pu lmonology also consulted. Subjective: Patient seen and examined at bedside. No acute events overnight. Claims that her breathing status has improved. She is no longer requiring BiPAP. She is on 3 L oxygen. She is still gets winded when getting out of the bed. Pertinent positives and negatives as discussed above, a complete review of systems was performed and all other systems are negative. Vitals Signs Reviewed. General: Nontoxic, no distress, appears at stated age Derm: Warm, dry Head: Atraumatic, normocephalic, symmetric Eyes: EOMI, no lid lag, anicteric sclera Mouth: No lip lesion, mucus membranes moist Cardiovascular: S1S2 reg, no murmur Lungs: Bibasilar rales, no accessory muscle use Abdominal: Soft, nontender to palpation, no guarding, no appreciable organomegaly Ext: No gross muscle atrophy, no edema, no contractures Neuro: CN II-XI grossly intact, no focal neuro deficits Psych: Alert, oriented, appropriate affect Data Reviewed Today: Pertinent Labs: No new labs Imaging: No new imaging Assessment and Plan: Active: Acute COPD exacerbation Acute on chronic hypoxic respiratory failure, resolved Lupus? -Continue IV Solu-Medrol 40 daily -No longer on any antibiotics, procalcitonin was negative -Cultures negative growth to date -On Symbicort twice daily, DuoNebs every 4 hours and every 2 hours as needed -Pulmonology following, appreciate recommendations -Patient was started on steroid taper for her lupus outpatient -If she truly has lupus, should be considered for maintenance therapy other than steroids, follow-up with rheumatology outpatient Hypomagnesemia -Repeat magnesium level tomorrow Mild hyponatremia -Repeat BMP tomorrow -Discontinued IV fluids, encourage oral intake Chronic: Intractable sinus tachycardia Dyslipidemia Neuropathic pain DVT ppx: Lovenox Code status: Full code Anticipated discharge place: Home Anticipated discharge time: 1 to 2 days Objective - Vital Signs Vital signs: Vital Signs Temp 98.3 F 04/22/24 11:22 Pulse 88 04/22/24 11:50 Resp 18 04/22/24 11:22 BP 137/72 04/22/24 11:22 Pulse Ox 93 L 04/22/24 11:22 FiO2 40 04/20/24 15:00 Intake & Output 04/21/24 04/22/24 04/22/24 18:59 06:59 18:59 Intake Total 240 Balance 240 Weight 157.4 kg Intake: Oral 240 Other: Voiding Method Bedside Commode Bedside Commode Bedside Commode # Voids 2 2 - Labs CBC & Chem 7: 04/20/24 02:59 04/20/24 02:59 Labs: Microbiology - Last 24 Hours (Table) 04/20/24 03:01 Blood Culture - Preliminary Blood
--- NOTE | 2024-04-22 13:15 | P.PN ---
Subjective Progress Note Date: 04/22/24 Principal diagnosis: Acute on chronic hypoxic respiratory failure secondary to acute exacerbation of COPD This is a pleasant 63-year-old female patient with a known history of prior tobacco dependence, oxygen dependent chronic obstructive pulmonary disease, lupus, fibromyalgia. She had developed worsening shortness of breath cough and congestion. She was ordered steroids 2 days ago without much improvement. She presented here to the emergency room early this morning with increasing shortness of breath cough congestion and O2 saturations in the 70s. She is placed on BiPAP 10/5 and 40% FiO2. She is seen in consultation in the emergency department. She is awake and alert. Chest x-ray shows increased interstitial opacities in the bilateral lower lobes. Right count 10.7. Hemoglobin 12.3. Platelets 400. Sodium 133. Potassium 4.2. Bicarb 31. BUN 12. Creatinine 0.51. Glucose 145. Viral screen is negative. She has been initiated on DuoNeb inhalations, Symbicort, Solu-Medrol. Empiric antibiotics in the form of Vibramycin. Procalcitonin pending. Lovenox for DVT prophylaxis. Normal saline at 75 mL/h. Patient was seen today on 04/21/2024, patient is feeling better today, breathing easier, less cough less wheezing less shortness of breath. Procalcitonin level came back normal reviewed previous CT of the chest on this patient, the findings in the right lower lobe seem to be chronic based on a CT of the chest back in , patient has some fibrotic changes/chronic in the right lower lobe and to some extent in the left lower lobe. Hence the findings on the chest x-ray seems to be chronic. Clinically the patient is feeling better, and she looks better today, she sounds even better on physical examination. Patient was seen today on 04/22/2024, patient is doing much better today, breathing a lot easier, less cough less wheezing less shortness of breath, on physical examination she sounded fairly clear, she was told by the admitting physician that she will keep her another day, again clinically the patient has demonstrated significant improvement patient is on 3 L nasal cannula O2 sats is 93% and her vitals are normal Objective - Vital Signs Vital signs: Vital Signs Temp 98.3 F 04/22/24 11:22 Pulse 88 04/22/24 11:50 Resp 18 04/22/24 11:22 BP 137/72 04/22/24 11:22 Pulse Ox 93 L 04/22/24 11:22 FiO2 40 04/20/24 15:00 Intake & Output 04/21/24 04/22/24 04/22/24 18:59 06:59 18:59 Intake Total 240 Balance 240 Weight 157.4 kg Intake: Oral 240 Other: Voiding Method Bedside Commode Bedside Commode Bedside Commode # Voids 2 2 - Exam GENERAL EXAM: Reveals 63-year-old white female in no distress, on nasal cannula. 3 L with O2 sat of 93 percent HEAD: Normocephalic. Atraumatic EYES: Normal reaction of pupils, equal size. NOSE: Clear with pink turbinates. THROAT: No erythema or exudates. NECK: No masses, no JVD. CHEST: No chest wall deformity. LUNGS: Clear bilaterally, no crackles rhonchi or wheezes CVS: S1 and S2 normal with no audible murmur, regular rhythm. ABDOMEN: No hepatosplenomegaly, normal bowel sounds, no guarding or rigidity. SKIN: No rashes CENTRAL NERVOUS SYSTEM: Alert oriented x 3 no gross focal deficit EXTREMITIES: No clubbing edema or cyanosis - Labs CBC & Chem 7: 04/20/24 02:59 04/20/24 02:59 Labs: Microbiology - Last 24 Hours (Table) 04/20/24 03:01 Blood Culture - Preliminary Blood Assessment and Plan Assessment: Impression: Acute on chronic hypoxemic respiratory failure secondary to an acute exacerbation of COPD, doubt pneumonia since the findings on the right lower lobe are chronic History of oxygen dependent chronic obstructive pulmonary disease normally on 3 L nasal cannula. Maintained on Trelegy and albuterol Former smoker History of lupus Fibromyalgia Hyperlipidemia Recommendation: Continue present bronchodilators, Continue Solu-Medrol, transition to prednisone in the next 24 hours Procalcitonin was normal Continue antibiotics for acute COPD exacerbation patient is on doxycycline Titrate FiO2 accordingly Consider discharge planning in 24 hours. Patient to follow-up on outpatient basis with Dr. Noland after discharge Time with Patient: Less than 30
[2024-04-22] MEDS: AMITRIPTYLINE HCL 25 MG TAB PO PRN (20:54)
[2024-04-23 02:38] VITALS: TEMP 98.7
[2024-04-23 06:58] LABS: Basophils % (A) 0 %; Eosinophils # (A) 0.1 k/uL (0-0.7); Eosinophils % (A) 1 %; HCT 37.5 % (34.0-46.0); Lymphocytes # (A) 1.7 k/uL (1.0-4.8); Lymphocytes % (A) 23 %; MCH 30.3 pg (25.0-35.0); MCV 94.8 fL (80.0-100.0); Mean Platelet Volume 6.5; Monocytes # (A) 0.7 k/uL (0-1.0); Monocytes % (A) 9 %; Neutrophils # (A) 4.8 k/uL (1.3-7.7); Neutrophils % (A) 66 %; Platelet Count 414 k/uL (150-450); RBC 3.96 m/uL (3.80-5.40); RDW 12.9 % (11.5-15.5); WBC 7.4 k/uL (3.8-10.6)
[2024-04-23 07:11] LABS: African American GFR (CKD) >90 (>60 ml/min/1.73 sqM); Blood Urea Nitrogen 11 mg/dL (7-17); Chloride 98 mmol/L (98-107); Glucose 84 mg/dL (74-99); Magnesium 1.6 mg/dL (1.6-2.3); Non-African American GFR(CKD) >90 (>60 ml/min/1.73 sqM); Potassium 3.7 mmol/L (3.5-5.1); Sodium 137 mmol/L (137-145)
[2024-04-23 07:20] LABS: Anion Gap 6 mmol/L
[2024-04-23 07:51] LABS: Carbon Dioxide 33 mmol/L (22-30)
[2024-04-23 08:26] VITALS: BP 119/65; RESP 16
[2024-04-23] MEDS ORDERED: LIDOCAINE 4% PATCH TOPICAL SCH (10:15)
--- NOTE | 2024-04-23 10:18 | P.DS ---
Providers Date of admission: 04/20/24 04:16 Expected date of discharge: 04/23/24 Attending physician: Jelena Chilel MD Consults: 04/20/24 04:14 Consult Physician Routine Consulting Provider: Juanis Cope Consult Reason/Comments: COPD/PNA Do you want consulting provider notified?: Yes [facility] Course: Discharge Diagnosis: Acute COPD exacerbation Acute on chronic hypoxic respiratory failure, resolved Lupus? Hypomagnesemia Mild hyponatremia Intractable sinus tachycardia Dyslipidemia Neuropathic pain Hospital Course: 63-year-old female with lupus, COPD maintained on 3 L nasal cannula at home, lupus?, fibromyalgia and hyperlipidemia. She presented to the emergency department after worsening of her breathing status and increase in her oxygen demand at home. Patient admitted to internal medicine service. -Chest x-ray done in the ER showed increased interstitial opacities bilateral lower lobes -EKG done in the ER showed heart rate of 123, sinus tachycardia with frequent ventricular contractions with artifact likely secondary to respiratory distress; QTc 354 Laboratory workup showed mild leukocytosis of 10.7, mild hyponatremia 133, magnesium 1.5, procalcitonin was 0.04, TSH 0.259, free T40.85, respiratory viral panel was negative. Patient started on IV steroids, bronchodilators. Pulmonology also consulted. Patient transition off of BiPAP, respiratory status improved. Patient back to her baseline O2 requirements. Antibiotics were discontinued, low suspicion for bacterial infection. Patient being discharged on prednisone taper. Follow-up with PCP and pulmonology. Patient seen and examined at bedside. Vital signs reviewed and stable. General: Nontoxic, no distress, appears at stated age Derm: Warm, dry Head: Atraumatic, normocephalic, symmetric Eyes: EOMI, no lid lag, anicteric sclera Mouth: No lip lesion, mucus membranes moist Cardiovascular: S1S2 reg, no murmur Lungs: CTA bilateral, no rhonchi, no rales, no accessory muscle use, supplemental oxygen Abdominal: Soft, nontender to palpation, no guarding, no appreciable organomegaly Ext: No gross muscle atrophy, no edema, no contractures Neuro: CN II-XI grossly intact, no focal neuro deficits Psych: Alert, oriented, appropriate affect A total of 36 minutes of time were spent preparing this complex discharge summary. Patient was discharged on 04/23/2024 at 1016. Patient Condition at Discharge: Stable Plan - Discharge Summary Discharge Rx Participant: No New Discharge Prescriptions: New predniSONE See Taper PO DIRECTED #50 tab Continue Atorvastatin [Lipitor] 40 mg PO DAILY Pantoprazole Sodium [Protonix] 40 mg PO DAILY Metoclopramide [Reglan] 10 mg PO QID methocarbamoL [Robaxin-750] 750 mg PO QID LORazepam [Ativan] 1 tab PO DAILY PRN PRN Reason: Anxiety Nystatin 100,000 Unit/ml Susp [Mycostatin Oral Susp] 500,000 units PO QID PRN PRN Reason: thrush atenoloL 25 mg PO DAILY Butalbital/Aspirin/Caffeine [Evvijj-Iuqkask-Wxfycqna 50-325-40 mg] 1 tablet PO DAILY PRN PRN Reason: Headache Albuterol Sulfate [Proair Hfa] 1 - 2 puff INHALATION RT-Q4H PRN PRN Reason: Shortness Of Breath Butalb/Acetaminophen/Caffeine [Fioricet 50-300-40 mg Capsule] 1 cap PO Q4HR PRN PRN Reason: Migraine Headache Ipratropium-Albuterol Nebulize [Duoneb 0.5 mg-3 mg/3 ml Soln] 3 ml INHALATION RT-TID PRN PRN Reason: Shortness Of Breath oxyCODONE HCL [oxyCODONE HCL (IR)] 20 mg PO QID Gabapentin 600 mg PO BID Amitriptyline HCl [Elavil] 75 mg PO HS PRN PRN Reason: Insomnia Fluticasone/Umeclidin/Vilanter [Trelegy Ellipta 100-62.5-25] 1 puff INHALA TION RT-DAILY Discontinued predniSONE See Taper PO DIRECTED Pantoprazole [Protonix] 40 mg PO DAILY PRN PRN Reason: Heartburn Discharge Medication List Atorvastatin [Lipitor] 40 mg PO DAILY 04/10/14 [History] Metoclopramide [Reglan] 10 mg PO QID 04/10/14 [History] Pantoprazole Sodium [Protonix] 40 mg PO DAILY 04/10/14 [History] Albuterol Sulfate [Proair Hfa] 1 - 2 puff INHALATION RT-Q4H PRN 01/22/22 [History] Butalb/Acetaminophen/Caffeine [Fioricet 50-300-40 mg Capsule] 1 cap PO Q4HR PRN 01/22/22 [History] Ipratropium-Albuterol Nebulize [Duoneb 0.5 mg-3 mg/3 ml Soln] 3 ml INHALATION RT-TID PRN 01/22/22 [History] methocarbamoL [Robaxin-750] 750 mg PO QID 01/22/22 [History] Amitriptyline HCl [Elavil] 75 mg PO HS PRN 06/08/23 [History] Gabapentin 600 mg PO BID 06/08/23 [History] oxyCODONE HCL [oxyCODONE HCL (IR)] 20 mg PO QID 06/08/23 [History] LORazepam [Ativan] 1 tab PO DAILY PRN 11/13/23 [History] Butalbital/Aspirin/Caffeine [Xezqup-Qwquieb-Ltjozhkg 50-325-40 mg] 1 tablet PO DAILY PRN 04/20/24 [History] Fluticasone/Umeclidin/Vilanter [Trelegy Ellipta 100-62.5-25] 1 puff INHALATION RT-DAILY 04/20/24 [History] Nystatin 100,000 Unit/ml Susp [Mycostatin Oral Susp] 500,000 units PO QID PRN 04/20/24 [History] atenoloL 25 mg PO DAILY 04/20/24 [History] predniSONE See Taper PO DIRECTED #50 tab 04/23/24 [Rx] Follow up Appointment(s)/Referral(s): Maycol Rowan DO [Primary Care Provider] - 1-2 days Marisa Bustillo MD [STAFF PHYSICIAN] - 1 Week Patient Instructions/Handouts: COPD (Chronic Obstructive Pulmonary Disease) (DC) Activity/Diet/Wound Care/Special Instructions: Please see your PCP and 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 Discharge Disposition: HOME SELF-CARE
[2024-04-23 11:31] VITALS: PULSE 80
--- NOTE | 2024-04-23 12:32 | P.PN ---
Subjective Progress Note Date: 04/23/24 Principal diagnosis: Acute on chronic hypoxic respiratory failure secondary to acute exacerbation of COPD This is a pleasant 63-year-old female patient with a known history of prior tobacco dependence, oxygen dependent chronic obstructive pulmonary disease, lupus, fibromyalgia. She had developed worsening shortness of breath cough and congestion. She was ordered steroids 2 days ago without much improvement. She presented here to the emergency room early this morning with increasing shortness of breath cough congestion and O2 saturations in the 70s. She is placed on BiPAP 10/5 and 40% FiO2. She is seen in consultation in the emergency department. She is awake and alert. Chest x-ray shows increased interstitial opacities in the bilateral lower lobes. Right count 10.7. Hemoglobin 12.3. Platelets 400. Sodium 133. Potassium 4.2. Bicarb 31. BUN 12. Creatinine 0.51. Glucose 145. Viral screen is negative. She has been initiated on DuoNeb inhalations, Symbicort, Solu-Medrol. Empiric antibiotics in the form of Vibramycin. Procalcitonin pending. Lovenox for DVT prophylaxis. Normal saline at 75 mL/h. Patient was seen today on 04/21/2024, patient is feeling better today, breathing easier, less cough less wheezing less shortness of breath. Procalcitonin level came back normal reviewed previous CT of the chest on this patient, the findings in the right lower lobe seem to be chronic based on a CT of the chest back in , patient has some fibrotic changes/chronic in the right lower lobe and to some extent in the left lower lobe. Hence the findings on the chest x-ray seems to be chronic. Clinically the patient is feeling better, and she looks better today, she sounds even better on physical examination. Patient was seen today on 04/22/2024, patient is doing much better today, breathing a lot easier, less cough less wheezing less shortness of breath, on physical examination she sounded fairly clear, she was told by the admitting physician that she will keep her another day, again clinically the patient has demonstrated significant improvement patient is on 3 L nasal cannula O2 sats is 93% and her vitals are normal Patient was seen today on 04/24/2024, patient is doing great, asymptomatic, feels much better compared to how she felt on upon admission. Hardly any pulmonary symptoms no cough no wheezing no shortness of breath, hence I have cleared the patient to be discharged home today and follow-up with Dr. Villarreal. Objective - Vital Signs Vital signs: Vital Signs Temp 98.7 F 04/22/24 20:00 Pulse 80 04/23/24 11:30 Resp 16 04/23/24 08:00 BP 119/65 04/23/24 08:00 Pulse Ox 100 04/23/24 08:00 FiO2 40 04/20/24 15:00 Intake & Output 04/22/24 04/23/24 04/23/24 18:59 06:59 18:59 Intake Total 900 Balance 900 Weight 70.6 kg Intake: Oral 900 Other: Voiding Method Bedside Commode Bedside Commode Bedside Commode # Voids 2 1 - Exam GENERAL EXAM: Reveals 63-year-old white female in no distress, on nasal cannula. 3 L with O2 sat of 93 percent HEAD: Normocephalic. Atraumatic EYES: Normal reaction of pupils, equal size. NOSE: Clear with pink turbinates. THROAT: No erythema or exudates. NECK: No masses, no JVD. CHEST: No chest wall deformity. LUNGS: Clear bilaterally, no crackles rhonchi or wheezes CVS: S1 and S2 normal with no audible murmur, regular rhythm. ABDOMEN: No hepatosplenomegaly, normal bowel sounds, no guarding or rigidity. SKIN: No rashes CENTRAL NERVOUS SYSTEM: Alert oriented x 3 no gross focal deficit EXTREMITIES: No clubbing edema or cyanosis - Labs CBC & Chem 7: 04/23/24 06:16 04/23/24 06:16 Labs: Abnormal Lab Results - Last 24 Hours (Table) 04/23/24 Range/Units 06:16 Carbon Dioxide 33 H (22-30) mmol/L Creatinine 0.48 L (0.52-1.04) mg/dL Microbiology - Last 24 Hours (Table) 04/20/24 03:01 Blood Culture - Preliminary Blood Assessment and Plan Assessment: Impression: Acute on chronic hypoxemic respiratory failure secondary to an acute exacerbation of COPD, doubt pneumonia since the findings on the right lower lobe are chronic History of oxygen dependent chronic obstructive pulmonary disease normally on 3 L nasal cannula. Maintained on Trelegy and albuterol Former smoker History of lupus Fibromyalgia Hyperlipidemia Recommendation: Prednisone taper on outpatient basis Cleared patient for discharge home today Procalcitonin was normal Follow-up on outpatient basis. Patient to follow-up on outpatient basis with Dr. Noland Time with Patient: Less than 30
== END 2024-04-23 11:43 | disposition home or self-care (01) | DRG 189 ==
LOC: EC 02:50 → 3SCARD 04:16
PROVIDERS: ADMIT Internal Medicine; ATTEND Internal Medicine
PROC: 5A09357 Assistance with Respiratory Ventilation, Less than 24 Consecutive Hours, Continuous Positive Airway Pressure (ICD-10-PCS; principal; 2024-04-20)
DX: J96.21 Acute and chronic respiratory failure with hypoxia (principal); E87.1 Hypo-osmolality and hyponatremia; J44.1 Chronic obstructive pulmonary disease with (acute) exacerbation; J44.0 Chronic obstructive pulmonary disease with (acute) lower respiratory infection; M32.9 Systemic lupus erythematosus, unspecified; Z99.81 Dependence on supplemental oxygen; E78.5 Hyperlipidemia, unspecified; R00.0 Tachycardia, unspecified; E83.42 Hypomagnesemia; G89.29 Other chronic pain; G62.9 Polyneuropathy, unspecified; M79.7 Fibromyalgia; Z79.891 Long term (current) use of opiate analgesic; Z79.51 Long term (current) use of inhaled steroids; Z79.899 Other long term (current) drug therapy; Z98.1 Arthrodesis status; Z87.891 Personal history of nicotine dependence; Z96.82 Presence of neurostimulator; Z87.01 Personal history of pneumonia (recurrent)
CPT/HCPCS: 36415; 71045; 80048; 80053; 82803; 83605; 83735; 84145; 84439; 84443; 85025; 85610; 85730; 87040; 87636; 93005; 94640; 94660; 94667; 94760; 96361; 96365; 96368; 96372; 96375; 96376; 99291

== ENCOUNTER → 2024-04-28 | Outpatient (CLI) | payer BC ==
--- NOTE | 2024-04-28 15:30 | BD ---
EXAMINATION TYPE: Axial Bone Density DATE OF EXAM: 04/28/2024 CLINICAL HISTORY: 63 years old Female. ICD-10 CODE: M85.80 OT DISRD OF BONE DENSITY , Additional Hi story: Height: 65 Weight: 153 FRAX RISK QUESTIONS: Family History (Parent hip fracture): yes, Glucocorticoids (More than 3mos): yes (Ex: prednisone, prednisolone, methylprednisolone, dexamethasone, and hydrocortisone). Secondary Osteoporosis: yes 3. Menopause before 45: yes RISK FACTORS HISTORY OF: copd, chronic pain, recent hospital stay for copd, lupus, fibromyalgia, Hip Fracture, lt hip area, pain pump History of Wrist Fracture: rt handed, using lt forearm Surgery to Spine yes, laminectomies x4 When: various dates MEDICATIONS: vit d, cholesterol meds, prednisone, inhalers for copd, pain meds, pt on ...portable...uses wheelchair for transport, EXAM MEASUREMENTS: Bone mineral densitometry was performed using the [employer] System. no spine scanned, multiple laminectomies... Bone mineral density about the R hip (g/cm2): 0.799 Bone mineral density about the L hip (g/cm2): 0.783 T Score values are as follows: -----R Neck: -2.1 -----L Neck: -2.1 -----R Total: -1.7 -----L Total: -1.8 Z Score values are as follows: -----R Neck: -0.8 -----L Neck: -0.8 -----R Total: -0.7 -----L Total: -0.8 Bone mineral density is her first dexa study, baseline. Bone mineral density about the L Wrist (g/cm2): 0.436 T Score values are as follows: -----Dist. R+U: -4.2 -----Prox. R+U: -1.9 -----Radius total: -3.6 Z Score values are as follows: -----Dist. R+U: -3.0 -----Prox. R+U: -0.7 -----Radius total: -2.4 Bone mineral density has is a baseline study today. FRAX%s: The graph provided illustrates a 31.1% chance for a major osteoporotic fx and a 3.2% chance f or the hips probability for fx in 10 years time. IMPRESSION: Osteoporosis (T Score less than -2.5). There is increased fracture risk and therapy is usually indicated based on age. Re-Screen 1-2 years. NOTE: T-SCORE=SD OF THE YOUNG ADULT MEAN. [facility], , 04/28/2024 3:28 PM
--- NOTE | 2024-05-01 18:07 | MM ---
Reason for Exam: Screening (asymptomatic). Last mammogram was performed 3 year(s) and 2 month(s) ago. Patient History: Menarche at age 12. First Full-Term at age 27. Postmenopausal. Core Biopsy on the Right side. Core Biopsy on the Right side. 03/2017, Benign Stereotactic Core Biopsy on the left side. 12/28/2003, Benign Stereotactic Core Biopsy on the right side. 12/28/2003, Benign Ultrasound-Guided Core Biopsy on the right side. 02/10/2017, MG discontinued stereo core LT on the left side. Risk Values: Luz 5 year model risk: 2.6%. NCI Lifetime model risk: 10.9%. Prior Study Comparison: 09/23/2017 Left Diagnostic Mammogram, [facility]. 01/31/2018 Bilateral Diagnostic Mammogram, [facility]. 02/26/2021 Bilateral Screening Mammogram, [facility]. Tissue Density: There are scattered areas of fibroglandular density. Findings: Analyzed By CAD. Benign bilateral oil cyst calcifications. Microclip right breast from prior biopsy. There is no suspicious group of microcalcifications or new suspicious mass in either breast. Overall Assessment: Benign, BI-RAD 2 Management: Screening Mammogram of both breasts in 1 year. . Patient should continue monthly self-breast exams. A clinical breast exam by your physician is recommended on an annual basis. This exam should not preclude additional follow-up of suspicious palpable abnormalities. Note on Luz scores and lifetime risk: 1. A Luz score greater than 3% is considered moderate risk. If this is the case, consider specialist referral to assess eligibility for a risk reducing agent. 2. If overall lifetime risk for the development of breast cancer is 20% or higher, the patient may qualify for future screening with alternating mammogram and breast MRI. [facility], , 05/01/2024 6:04 PM. Electronically signed and approved by: Eve Amador M.D. Radiologist
== END | disposition home or self-care (01) ==
LOC: RADMAMWWP 13:24
PROVIDERS: ATTEND Family Medicine
DX: Z12.31 Encounter for screening mammogram for malignant neoplasm of breast (principal); M85.80 Other specified disorders of bone density and structure, unspecified site; Z78.0 Asymptomatic menopausal state; R92.323 Mammographic fibroglandular density, bilateral breasts; N60.02 Solitary cyst of left breast; N60.01 Solitary cyst of right breast; M81.8 Other osteoporosis without current pathological fracture
CPT/HCPCS: 77063; 77067; 77080

== ENCOUNTER → 2024-10-20 | Outpatient (CLI) | payer BC ==
--- NOTE | 2024-10-20 15:20 | CTL ---
EXAMINATION TYPE: CT Low Dose Lung DATE OF EXAM ORDERED: 10/20/2024 COMPARISON: CTA chest 01/22/2022 CLINICAL INDICATION: Female, 64 years old with history of F17.210 nicotine dependence; PHH, , Lung ca ncer screening, History of Smoking/tobacco use. TECHNIQUE: Low dose computed tomography scan was performed through the chest at 1 mm thick sections a nd reconstructed images in multiple planes at 1 mm and [address] DLP: Current every day smoker, 1 ppd x [address] CTDI: 92.6 mGy Automated exposure control for dose reduction was used. CT DIAGNOSTIC QUALITY: Satisfactory FINDINGS: Nodules: Stable peripheral left upper lobe 1.9 cm callus or granuloma abutting the major fissure (series 6, im age 34). Stable right middle lobe 5.3 mm pulmonary nodule (series 6, image 41). Stable right middle lobe 5.9 mm solid pulmonary nodule (series 6, image 40). Stable peripheral right lower lobe 3.2 mm pulmonary nodule (series 6, 235). No new or enlarging pulmonary nodules. LUNGS: COPD: Severity: Mild to moderate Fibrosis: Severity: Mild to moderate with scattered regions of linear scarring and subpleural reticul ations Lymph nodes: None Other findings: None RIGHT PLEURAL SPACE: Effusion: None Calcification: None Thickening: None Pneumothorax: None LEFT PLEURAL SPACE: Effusion: None Calcification: None Thickening: None Pneumothorax: None HEART: Heart Size: Normal Coronary Calcification: Mild, most prominently within the LAD. Pericardial Effusion: None OTHER FINDINGS: Upper abdomen: None Bony thorax: Anterior and posterior cervical hardware identified. Stimulator leads identified within the thoracic spinal canal. Prominent Schmorl's node involving the superior endplate of the T6 vertebr al body. Supraclavicular region: None Other: None IMPRESSION: 1. Few stable pulmonary nodules dating back to 2021 and considered benign. No new or enlarging pulmo nary nodules. 2. Mild to moderate emphysematous and pulmonary fibrotic changes. CT LUNG RAD AND CT CHEST RECOMMENDATION: Lung-Rad 2 Benign Appearance or Behavior: Continue annual sc reening with LDCT in 12 months. S Modifier (other clinically significant findings): None [facility], Workstation: [employer], 10/20/2024 3:17 PM
== END | disposition home or self-care (01) ==
LOC: RADCTMAIN 12:48
PROVIDERS: ATTEND Internal Medicine Critical Care Medicine
DX: Z12.2 Encounter for screening for malignant neoplasm of respiratory organs (principal); F17.210 Nicotine dependence, cigarettes, uncomplicated; R91.8 Other nonspecific abnormal finding of lung field; J43.9 Emphysema, unspecified; J84.10 Pulmonary fibrosis, unspecified
CPT/HCPCS: 71271